=== PATIENT | male | born 1980 | race Caucasian/White ===

== ENCOUNTER → 2020-05-10 18:19 | Outpatient (CLI) | payer BC, SELFPAY ==
[2020-05-10 18:26] LABS: Adenovirus F 40/41, stool Not Detected (NotDetected); Astrovirus Not Detected (NotDetected); Campylobacter Not Detected (NotDetected); Clostridium Difficile A/B, PCR Not Detected (NotDetected); Cryptosporidium Not Detected (NotDetected); Cyclospora Cayetanesis Not Detected (NotDetected); Entamoeba histolytica Not Detected (NotDetected); Enteroaggregative E coli Not Detected (NotDetected); Enteropathogenic E coli Not Detected (NotDetected); Enterotoxigenic E coli Not Detected (NotDetected); Giardia lamblia Not Detected (NotDetected); Norovirus Not Detected (NotDetected); Plesimonas Shigalloides, PCR Not Detected (NotDetected); Rotavirus A Not Detected (NotDetected); Salmonella, PCR Not Detected (NotDetected); Sapovirus Not Detected (NotDetected); Shiga-like toxin E coli Not Detected (NotDetected); Shigella Enterovasive E coli Not Detected (NotDetected); Vibrio Cholerae Not Detected (NotDetected); Vibrio, PCR Not Detected (NotDetected); Yersinia Entercolitica, PCR Not Detected (NotDetected)
[2020-05-12 14:09] LABS: Covid-19 Nasal PCR Sendout Lex Not Detected
== END ==
PROVIDERS: Visit Provider Nurse Practitioner
DX: R19.7 Diarrhea, unspecified (principal); Z03.818 Encounter for observation for suspected exposure to other biological agents ruled out
CPT/HCPCS: 87507; U0004

== ENCOUNTER 2020-05-12 15:17 | Emergency (ER) | payer BC, SELFPAY ==
--- NOTE | 2020-05-12 16:39 | HMH.EDUTC ---
[facility] [place] Disposition Clinical Impression: Diarrhea Qualifiers: Diarrhea type: infectious Qualified Code(s): A09 - Infectious gastroenteritis and colitis, unspecified Disposition: Home, Self-Care Condition on Discharge: Good Instructions: DI for Diarrhea and Traveler's Diarrhea -- Adult Additional Instructions: BRAT diet Prescriptions: Ciprofloxacin HCl [Ciprofloxacin 500mg Tab] 500 mg PO BID 5 Days #10 tab Transmission Status: Pending to [facility] Ondansetron [Ondansetron Odt 8mg Tab] 8 mg PO TID PRN 10 Days #30 tab PRN Reason: Nausea Transmission Status: Pending to [facility] Referrals: PCP,No [Primary Care Provider] - Time of Disposition: 16:47 Medical Decision Making - Donovan Inquiry Pt receiving controlled substance: No - Lab Data Lab results reviewed: Yes: I reviewed the patient's lab results. [facility] [place] HPI - General Stated complaint: Obtain test results Time Seen by Provider: 05/12/20 16:39 - History of Present Illness Provider Complaint: Patient has had nausea, vomiting, diarrhea X 10 days. No fever. Every time he eats, he has to use the bathroom. Pepto and Imodium have not helped. Stomach cramps and back hurt. Had COVID19 testing and diarrhea panel done yesterday. Onset (ago): day(s) (10) Location: abdomen Relieving factors: none Exacerbating factors: none Treatments prior to arrival: none - Related Data Previous Rx's Medication Instructions Recorded Ciprofloxacin HCl [Ciprofloxacin 500 mg PO BID 5 Days #10 tab 05/12/20 500mg Tab] Ondansetron [Ondansetron Odt 8mg 8 mg PO TID PRN 10 Days #30 tab 05/12/20 Tab] Allergies Allergy/AdvReac Type Severity Reaction Status Date / Time No Known Allergies Allergy Unverified 09/30/17 14:39 [facility] History - Hepatitis A Screen Attestation statement:: This patient has been screened for Hepatitis A risk factors. I have reviewed the patient's past medical history: Yes ROS Obtained: Yes All systems reviewed & no additional complaints - Gastrointestinal Gastrointestingal: Reports: loose stools, vomiting Physical Exam - General General appearance: alert, in no apparent distress - Head Head exam: atraumatic, normocephalic, normal inspection - Eye Eye exam: Present: normal appearance, PERRL, EOMI - ENT ENT exam: Present: normal exam, normal oropharynx, mucous membranes moist, TM's normal bilaterally, normal external ear exam - Neck Neck exam: Present: normal inspection, full ROM, trachea midline. Absent: meningismus, lymphadenopathy - Chest Chest inspection: Present: normal inspection, symmetric chest wall rise. Absent: tenderness - Respiratory Respiratory exam: Present: normal lung sounds bilaterally. Absent: respiratory distress - Cardiovascular Cardiovascular exam: Present: regular rate, normal rhythm. Absent: JVD - Abdominal Exam Abdominal exam: Present: soft, tenderness, hyperactive bowel sounds. Absent: distention, guarding - Extremities Exam Extremities exam: Present: normal inspection, full ROM, normal capillary refill. Absent: calf tenderness - Back Exam Back exam: Present: normal inspection. Absent: tenderness - Neurological Exam Neurological exam: Present: alert, oriented X3 - Psychiatric Psychiatric exam: Present: normal affect, normal mood - Skin Skin exam: Present: warm, dry, intact, normal color - Lymphatic Lymphatic Findings: no adenopathy
[2020-05-12 16:43] VITALS: BP 126/80; PULSE 78; RESP 20; TEMP 36.3; O2SAT 98; BMI 29.0
[2020-05-12 17:03] VITALS: BP 126/80; PULSE 78; RESP 20; TEMP 36.3; O2SAT 98
== END 2020-05-12 17:06 | disposition home or self-care (01) ==
PROVIDERS: Emergency Provider Physician Assistant
DX: A09 Infectious gastroenteritis and colitis, unspecified (principal)
CPT/HCPCS: 99201

== ENCOUNTER 2020-05-17 22:49 | Emergency (ER) | payer BC, SELFPAY ==
[2020-05-17 22:57] VITALS: BP 151/99; PULSE 103; RESP 18; TEMP 36.6; O2SAT 97; BMI 29.0
[2020-05-17 23:35] LABS: Lipase 125 U/L (23-300)
[2020-05-17 23:36] LABS: Alanine Aminotransferase 77 U/L (12-78); Albumin Level 5.1 g/dl (3.5-5.0); Albumin/Globulin Ratio 1.3 (1.1-1.8); Alkaline Phosphatase 127 U/L (38-126); Amylase 117 U/L (30-110); Anion Gap 19.2 mEq/L (5-15); Aspartate Amino Transferase 58 U/L (17-59); Basophils # 0.2 K/mm3 (0-0.2); Basophils % 0.7 % (0.1-2.0); Bilirubin,Total 0.5 mg/dl (0.2-1.3); Blood Urea Nitrogen 13 mg/dl (9-20); Calcium 10.2 mg/dl (8.4-10.2); Carbon Dioxide 28 mmol/L (22.0-30.0); Chloride 101 mmol/L (98-107); Creatinine Clearance Estimated 156 mL/min (50-200); Eosinophils # 1.3 K/mm3 (0.0-0.4); Eosinophils % 6.6 % (0.1-12.0); Estimated Glomerular Filt Rate 94 ml/min (>60); GFR (African American) 114 ML/MIN (>60); Globulin 3.8 g/dL (1.3-3.2); Glucose 117 mg/dl (74-100); Hematocrit 54.1 % (42.0-52.0); Lymphocytes # 4.2 K/mm3 (0.7-4.5); Lymphocytes % 20.8 % (10-50); Mean Corpuscular HGB Conc 34.2 g/dL (31.8-35.4); Mean Corpuscular Hemoglobin 31.7 pg (27.0-31.2); Mean Corpuscular Volume 92.7 fl (80-94); Mean Platelet Volume 8.7 fl (7.4-10.4); Monocytes # 0.9 K/mm3 (0.1-1.0); Monocytes % 4.4 % (1.7-9.3); Neutrophils # 13.7 K/mm3 (1.8-7.8); Neutrophils % 67.5 % (37.0-80.0); Platelet Count 315 K/mm3 (142-424); Potassium 4.2 mmoL/L (3.5-5.1); Red Blood Count 5.84 M/mm3 (4.60-6.20); Red Cell Distribution Width 13.4 % (11.5-17.5); Sodium 144 mmol/L (136-145); Total Protein,Serum 8.9 g/dl (6.3-8.2); White Blood Count 20.2 K/mm3 (4.8-10.8)
[2020-05-17 23:43] LABS: Hemoglobin 18.8 g/dL (14.1-18.0); MANUAL DIFFERENTIAL MANUAL DIFFERENTIAL (MANUAL DIFF)
[2020-05-17 23:53] VITALS: BP 138/82; PULSE 91; RESP 18; O2SAT 97
[2020-05-18 00:40] LABS: Eosinophils % 1 % (0-3); Lymphocytes % 27 % (10-50); Monocytes % 2 % (2-9); Neutrophils % 69 % (42-76); Total Cells Counted 100
[2020-05-18 00:41] LABS: Platelet Estimate Normal; RBC Morphology Normal
--- NOTE | 2020-05-18 01:04 | HMH.EDNVD ---
ED Disposition Clinical Impression: Gastroenteritis Disposition: Home, Self-Care Condition on Discharge: Good Instructions: DI for Nausea -- Adult, DI for Nausea -- Child, DI for Diarrhea and Traveler's Diarrhea -- Adult, DI for Diarrhea and Traveler's Diarrhea -- Child Prescriptions: Promethazine HCl 50 mg PO TID 6 Days #20 tab Transmission Status: [facility] Referrals: PCP,No [Primary Care Provider] - - Critical Care Critical Care Time: No Attestation: On 05/17/20, the high probability of a clinically significant, sudden or life threatening deterioration of the following system(s) required my full and direct attention, intervention and personal management. The time I documented below is in addition to time spent performing reported procedures but includes the following listed in this critical care notation. Medical Decision Making - Medical Records Medical records reviewed: Yes: I reviewed the patient's medical records. - Donovan Inquiry Pt receiving controlled substance: No Vital Signs: 05/17/20 22:57 05/17/20 23:53 Temperature 97.8 F Temperature Source Oral Pulse Rate [Right] 103 H 91 H Respiratory Rate 18 18 Blood Pressure [Right Arm] 151/99 H 138/82 Blood Pressure Mean [Right Arm] 116 100 Blood Pressure Source [Right Arm] Automatic Cuff Blood Pressure Position [Right Arm] Sitting 02 Sat by Pulse Oximetry 97 97 Oxygen Delivery Method Room Air Room Air - Lab Data Lab results reviewed: Yes: I reviewed the patient's lab results. Lab Results 05/17/20 23:15: WBC 20.2 H*, RBC 5.84, Hgb 18.8 H*, Hct 54.1 H, MCV 92.7, MCH 31.7 H, MCHC 34.2, RDW 13.4, Plt Count 315, MPV 8.7, Neut % (Auto) 67.5, Lymph % (Auto) 20.8, [place] % (Auto) 4.4, Eos % (Auto) 6.6, Baso % (Auto) 0.7, Neut # (Auto) 13.7 H, Lymph # (Auto) 4.2, [place] # (Auto) 0.9, Eos # (Auto) 1.3 H, Baso # (Auto) 0.2, Total Counted 100, Neutrophils % (Manual) 69, Lymphocytes % (Manual) 27, Monocytes % (Manual) 2, Eosinophils % (Manual) 1, Basophils % (Manual) 1.0, Platelet Estimate Normal, RBC Morphology Normal 05/17/20 23:15: Sodium 144, Potassium 4.2, Chloride 101, Carbon Dioxide 28, Anion Gap 19.2 H, BUN 13, Creatinine 0.90, Estimated Creat Clear 156, Estimated GFR 94, Est GFR ( Amer) 114, Glucose 117 H, Calcium 10.2, Total Bilirubin 0.5, AST 58, ALT 77, Alkaline Phosphatase 127 H, Total Protein 8.9 H, Albumin 5.1 H, Globulin 3.8 H, Albumin/Globulin Ratio 1.3, Amylase 117 H 05/17/20 23:15: Lipase 125 05/17/20 23:50: Influenza Type A Ag Negative, Influenza Type B Ag Negative Result diagrams: 05/17/20 23:15 05/17/20 23:15 Orders (Tests/Meds): ED MEDICATIONS Generic Name Dose Route Start Last Admin Trade Name Freq PRN Reason Stop Dose Admin Sodium Chloride 1,000 mls @ 999 mls/hr 05/17/20 23:15 05/17/20 23:21 Sod Chlor 0.9% 1000ml Bag IV 05/18/20 00:15 999 mls/hr .Q1H1M OPAL Administration Discontinued Medications Generic Name Dose Route Start Last Admin Trade Name Freq PRN Reason Stop Dose Admin Ondansetron HCl 4 mg 05/17/20 23:05 05/17/20 23:21 Zofran 4mg/2ml Vial IV 05/17/20 23:06 4 mg ONCE ONE Administration Nausea/Vomiting/Diarrhea HPI - General Chief complaint: Nausea/Vomiting/Diarrhea Stated complaint: Vomiting, diarrhea, abdominal pain Time Seen by Provider: 05/18/20 01:00 Mode of Arrival: Ambulatory Source of Information: Patient Limitations: No Limitations Description of Symptoms (Recalled from ER Triage Doc. by RN): Pt states he has had N/V/D for 10 days, already seen in [facility] on friday and f/u with Jing, tested Neg Covid 19 and stool sample with neg results. Currently taking ABX - History of Present Illness HPI Narrative: 39-year-old male presents the emergency department with an acute onset of vomiting. Patient states he is had diarrhea now for 10days he did get put on antibiotic and urgent care for diarrhea but he states that he still has diarrhea about 20 m
[2020-05-18 02:03] VITALS: BP 140/72; PULSE 88; RESP 14; TEMP 36.6; O2SAT 98
== END 2020-05-18 02:05 | disposition home or self-care (01) ==
PROVIDERS: Emergency Provider Family Medicine
DX: K52.9 Noninfective gastroenteritis and colitis, unspecified (principal)
CPT/HCPCS: 80053; 82150; 83690; 85007; 85025; 87275; 87276; 96365; 96367; 96374; 96375; 99283; J2405

== ENCOUNTER → 2020-05-19 15:48 | Outpatient (CLI) | payer BC, SELFPAY ==
--- NOTE | 2020-05-19 15:57 | CT_ITS ---
PROCEDURE: CT ABDOMEN PELVIS WO/W CON CLINICAL INDICATION: USPECIFIED ABD PAIN Diarrhea with a intermittent fever COMPARISON: No exams were available for comparison TECHNIQUE: IV Contrast: 75ML OPTIRAY 350 Oral Contrast None Axial images obtained with sagittal and coronal reformats. All CT scans at the facility use one or more dose reduction, viz: automated exposure control, ma/kV adjustment per patient size (including targeted exams where dose is matched to indication, i.e. head), or iterative reconstruction technique. FINDINGS: LOWER THORAX: There is a 3 mm noncalcified nodule in the right middle lobe nonspecific. There are mild atelectatic changes in the right lung base. ABDOMEN & PELVIS: There is mild fatty infiltration of the liver. There is mild splenomegaly at 15 cm. No focal liver lesion is evident. The gallbladder has an unremarkable appearance. No renal or ureteral calculi. No hydronephrosis. The pancreas and adrenal glands are unremarkable. There are few scattered mildly prominent mesenteric lymph nodes which measure up to 1.7 x 1.2 cm. Small nodes are present in the right lower quadrant. There is given history of appendectomy. No evidence of diverticulitis. There are some scattered colonic diverticula. No intestinal obstruction or free air. There is mild prominence of the terminal ileum which is nonspecific. No mucosal thickening of the terminal ileum. No abscess. The degenerative disc disease with bulging disc is present at L5-S1. Mild degenerative changes of the hips. Incidental note is made of a retro aortic left renal vein IMPRESSION: 1. No definite acute abdominal or pelvic findings. 2. Mildly prominent mesenteric and right lower quadrant lymph nodes nonspecific but could be seen with mesenteric adenitis. 3. Patulous appearance of the terminal ileum. This is of questionable clinical significance. The 4. Splenomegaly with mild fatty liver Dictated b Tez Brandon MD 05/19/2020 17:04 Tez Brandon MD in [facility] 05/19/2020 17:04
== END ==
PROVIDERS: PCP Nurse Practitioner; Visit Provider Nurse Practitioner
DX: R10.9 Unspecified abdominal pain (principal)
CPT/HCPCS: 74178; Q9967

== ENCOUNTER → 2020-06-20 19:09 | Outpatient (CLI) | payer BC, SELFPAY ==
[2020-06-22 13:33] LABS: Covid-19 Nasal PCR Sendout Lex NOT DETECTED
== END ==
PROVIDERS: Visit Provider Nurse Practitioner Family
DX: Z03.818 Encounter for observation for suspected exposure to other biological agents ruled out (principal)
CPT/HCPCS: U0004

== ENCOUNTER 2020-07-21 07:38 | Day surgery (SDC) | payer BC, SELFPAY ==
[2020-07-21] VITALS (7 sets, daily range): BP systolic 96–137; BP diastolic 48–85; PULSE 44–67; RESP 18; TEMP 36.1–36.6; O2SAT 95–100; BMI 29.7
[2020-07-21 08:33] LABS: Coronavirus 19 IgG Antibody Negative (Negative); Coronavirus 19 IgM Antibody Negative (Negative)
--- NOTE | 2020-07-21 10:10 | HMH.ANESCL ---
[facility] Anesthesia Checklist - Patient Identification Patient Identification: Arm Band - Structural Data Admitted From: Home Planned Operative Procedure/s: egd/colonoscopy Consent for Planned Operative Procedure(s) Verified: Yes Verified Documents: Surgical Consent, History and Physical - NPO Status Verified Time NPO: 00:00 - Additional verifications Anesthesia Reactions: No - Airway Assessment C-Spine Mobility Assessed: Yes (mp2) TMJ Mobility Assessed: Yes Dentition: Good Dentition - Neurological Assessment Level of Consciousness: Awake, Alert - Anesthesia Plan Anesthesia Risk discussed: Yes Anesthesia Plan: Verified ASA Class: I Anesthesia Type: MAC [facility] History I have reviewed the patient's past medical history: Yes Medical History: 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 No: Pacemaker Amputation: No Fractures: Yes (r wrist) - *Social History Last grade of school completed: Some college Alcohol Intake: never Substance Use Type: denies use *Occupational Status:: employed Housing: house Household Members: spouse *Travel in the last 8 weeks: None Family Hx:: No significant family history
--- NOTE | 2020-07-21 10:11 | HMH.PROC ---
[facility] Procedure Note Procedure Note:: Upper Endoscopy Procedure Report: Esophagogastroduodenoscopy with cold biopsies Endoscopost: Ruddy Preston II, MD Referring Physician: ROC Chang Date of Procedure: July 21, 2020 Equipment: Olympus GIF 180 standard upper endoscope Sedation: MAC sedation Indications: Mr. Paige is a 39-year-old gentleman with episodic nausea, vomiting and diarrhea. He does get some mild epigastric abdominal pain and discomfort with indigestion. He has lost 10 to 15 pounds. This has been going on for 6 to 8 weeks. He did have a CT scan of the abdomen showing some gastric or bowel irregularity but the report is not presently available. He reports no melena. He reports no heartburn, reflux, bloating, belching, early satiety or dysphagia. Procedure: Prior to the procedure, a history and physical exam was performed, and patient's medications and allergies were reviewed. The risks, benefits and alternatives of the sedation and procedure were discussed with the patient. All questions were answered and informed consent was obtained. The patient was brought to the procedure room. Patient identification and proposed procedure were verified by the physician and the nurse. The patient was placed in a left lateral decubitus position and the scope was passed under direct vision. Throughout the procedure, the patient's blood pressure, pulse, and oxygen saturations were monitored continuously. The upper GI endoscopy was accomplished without difficulty. The patient tolerated the procedure well. Findings: The scope was passed directly into the upper esophagus and advanced to the third portion of the duodenum. The post bulbar duodenum and duodenal bulb were normal with normal mucosa and conniventes. The scope was withdrawn through a normal duodenal bulb and pylorus into the stomach. There was some minimal chronic gastritis of the stomach with bile reflux and mild reactive gastropathy. Biopsies were taken from the antrum to rule out H. pylori. Upon retroflexion there was no hiatal hernia. The scope was then withdrawn into the esophagus. There was no evidence of reflux esophagitis or Grubbs's. Biopsies were taken from the GE junction to rule out GERD/intestinal metaplasia. The remainder of the esophageal mucosa was normal. Impression: 1. Minimal chronic gastritis and reactive gastropathy Plan: I will follow-up the biopsies. We will discuss additional treatment options. I will obtain his CAT scan report. I will proceed with colonoscopy.
--- NOTE | 2020-07-21 10:30 | P.PCN_ITS ---
[facility] Procedure Note Procedure Note:: Colonoscopy Procedure Report: Colonoscopy with cold snare polypectomy Endoscopist: Ruddy Preston II, MD Referring physician: ROC Chang Date of Procedure: July 21, 2020 Equipment: Olympus 180 variable stiffness pediatric colonoscope Sedation: MAC sedation Indication: Mr. Paige is a 39-year-old gentleman here for diagnostic colonoscopy. He has had episodic nausea, vomiting and diarrhea for 2 months. He did have a CT scan of the abdomen and pelvis on May 19, 2020 and did have a patulous appearance of the ileum and mildly prominent mesenteric and right lower quadrant lymph nodes possibly representing mesenteric lymphadenitis. The patient has lost 10 to 15 pounds. The patient reports some mild upper abdominal discomfort. He has had no rectal bleeding, hematochezia or fever. He reports no family history of colitis, Crohn's disease or colon cancer. Procedure: Prior to the procedure, a history and physical exam was performed, and patient's medications and allergies were reviewed. The risks, benefits and alternatives of the sedation and procedure were discussed with the patient. All questions were answered and informed consent was obtained. The patient was brought to the procedure room. Patient identification and proposed procedure were verified by the physician and the nurse. The patient was placed in a left lateral decubitus position and the scope was passed under direct vision. Throughout the procedure, the patient's blood pressure, pulse, and oxygen saturations were monitored continuously. The colonoscopy was accomplished without difficulty. The patient tolerated the procedure well. Findings: On digital rectal examination there was normal rectal tone. There were no external hemorrhoids. The colonoscope was introduced through the anal canal to the rectum and advanced to the cecum. The ileocecal valve and appendiceal orifice were identified. The scope was advanced a short distance into the ileum which appeared grossly normal. There was no evidence of Crohn's disease of the ileum. The scope was then withdrawn into the colon. There were 4 colon polyps (transverse x1 (4 mm), sigmoid x2 (4 and 5 mm) and rectum x1 (4 mm)) which were all removed via cold snare polypectomy. The remaining cecum, ascending, transverse, descending, sigmoid and rectum were grossly normal. There were no mucosal abnormalities identified. Upon retroflexion within the rectum there were grade 1 internal hemorrhoids.The preparation was excellent throughout with B oston Preparation Score of 9. The cecal time was 12 minutes. Impression: 1. Diminutive colonic polyps x4 2. Grade 1 internal hemorrhoids Plan: There was no evidence of colitis or Crohn's disease. 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 If his symptoms persist I would also consider gallbladder ultrasound. We will discuss dietary measures and treatment options.
== END 2020-07-21 11:20 | disposition home or self-care (01) ==
LOC: OUTP 07:39
PROVIDERS: PCP Nurse Practitioner Family; Visit Provider Internal Medicine Gastroenterology
PROC: 0DJ08ZZ Inspection of Upper Intestinal Tract, Via Natural or Artificial Opening Endoscopic (ICD-10-PCS; CPT 43235; principal; 2020-07-21 09:30)
DX: K63.5 Polyp of colon (principal); K64.0 First degree hemorrhoids; K29.70 Gastritis, unspecified, without bleeding; K31.9 Disease of stomach and duodenum, unspecified; R63.4 Abnormal weight loss; Z68.29 Body mass index [BMI] 29.0-29.9, adult; Z86.14 Personal history of Methicillin resistant Staphylococcus aureus infection; Z90.89 Acquired absence of other organs; Z90.49 Acquired absence of other specified parts of digestive tract
CPT/HCPCS: 45385; 43239; 36415; 86328

== ENCOUNTER → 2020-08-01 08:30 | Outpatient (CLI) | payer BC, SELFPAY ==
--- NOTE | 2020-08-01 08:35 | US_ITS ---
PROCEDURE: US ABDOMEN LIMITED CLINICAL INDICATION: ABD PAIN COMPARISON: CT CT ABDOMEN PELVIS WO/W CON from 05/19/2020 FINDINGS: PANCREAS: Unremarkable. No obvious mass or abnormal fluid collection. No ductal dilatation LIVER: Diffuse increased echogenicity of the liver with poor through transmission of sound consistent with hepatic steatosis. No focal liver lesion demonstrated. There is appropriate direction of blood flow within non dilated portal vein. RIGHT KIDNEY: Unremarkable. Normal size and echogenicity. No hydronephrosis GALLBLADDER: No gallstones, gallbladder wall thickening, pericholecystic fluid, or biliary dilatation. IMPRESSION: Fatty liver otherwise negative right upper quadrant ultrasound Dictated by: Tez Brandon MD 08/01/2020 09:37 Tez Brandon MD in [facility] 08/01/2020 09:37
== END ==
PROVIDERS: PCP Nurse Practitioner Family; Visit Provider Nurse Practitioner Family
DX: R10.9 Unspecified abdominal pain (principal)
CPT/HCPCS: 76705

== ENCOUNTER → 2020-08-07 10:14 | Outpatient (CLI) | payer BC, SELFPAY ==
--- NOTE | 2020-08-07 | NM_ITS ---
PROCEDURE: NM HEPATOBILIARY W PHARM CLINICAL INDICATION: Abdominal pain with nausea, vomiting COMPARISON: US US ABDOMEN LIMITED from 08/01/2020 TECHNIQUE: 8.37 mCi technetium Choletec DOSE: 2 mcg of CCK FINDINGS: Homogeneous activity is present within the hepatic parenchyma. Activity is present in the gallbladder by 5 minutes. Activity is present in the small bowel by at 50 minutes.. The gallbladder ejection fraction is calculated to be 94 percent.. CCK-The patient reported mild nausea and pain during CCK infusion. IMPRESSION: 1. No evidence of common or cystic duct obstruction. There is some delayed visualization of the small bowel with some mild nausea and pain reported with CCK, nonspecific. 2. Normal gallbladder ejection fraction Dictated by: Tez Brandon MD 08/07/2020 12:56 Tez Brandon MD in [facility] 08/07/2020 12:56
== END ==
PROVIDERS: PCP Nurse Practitioner Family; Visit Provider Nurse Practitioner Family
DX: R10.9 Unspecified abdominal pain (principal)
CPT/HCPCS: 78227; A9537; J2805

== ENCOUNTER → 2021-02-21 07:55 | Outpatient (CLI) | payer BC, SELFPAY ==
--- NOTE | 2021-02-21 08:04 | XR_ITS ---
PROCEDURE: XR KNEE RT 3V CLINICAL INDICATION: RT KNEE PAIN COMPARISON: No exams were available for comparison FINDINGS: No fracture or dislocation. No lytic or blastic change. There is normal mineralization. The joint spaces are well-preserved. No significant degenerative/arthritic changes. No suprapatellar joint effusion. No significant soft tissue abnormality. IMPRESSION: No acute findings. Dictated by: Patricia Shafer 02/21/2021 08:14 Patricia Shafer in [facility] 02/21/2021 08:14
== END ==
PROVIDERS: PCP Nurse Practitioner Family; Visit Provider Nurse Practitioner Family
DX: M25.561 Pain in right knee (principal)
CPT/HCPCS: 73562

== ENCOUNTER → 2021-02-26 07:59 | Outpatient (CLI) | payer BC, SELFPAY ==
--- NOTE | 2021-02-26 08:03 | CA_ITS ---
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: SW/CN Indications HTN, HLD Vein Imaging CFV (R): compressive, spontaneous, phasic, augmentation FEM (R): compressive, spontaneous, phasic, augmentation POP (R): compressive, spontaneous, phasic, augmentation PTV (R): compressive, spontaneous, phasic, augmentation GSV (R): compressive, spontaneous, phasic, augmentation SSV (R): compressive, spontaneous, phasic, augmentation Peroneals (R):compressive, spontaneous, phasic, augmentation GAS (R): compressive, spontaneous, phasic, augmentation Findings Color flow duplex demonstrates no evidence of DVT of the following right lower extremity Vein:Common Femoral Vein, Femoral Vein, Popliteal Vein, Posterior Tibial Veins, Peroneal Veins. Negative for DVT. Conclusion Color flow duplex demonstrates no evidence of DVT of the following right lower extremity Vein:Common Femoral Vein, Femoral Vein, Popliteal Vein, Posterior Tibial Veins, Peroneal Veins. Negative for DVT. Mildly prominent right inguinal lymph node Electronically signed by : Tez Brandon MD 02/26/2021 17:41:43
== END ==
PROVIDERS: PCP Nurse Practitioner Family; Visit Provider Nurse Practitioner Family
DX: M25.561 Pain in right knee (principal)
CPT/HCPCS: 93971

== ENCOUNTER 2021-04-05 08:00 | Outpatient (RCR) | payer BC, SELFPAY | END 2021-04-26 16:30 | disposition home or self-care (01) | LOC: PT.CARL 08:00 | PROVIDERS: PCP Nurse Practitioner Family; Visit Provider Nurse Practitioner Family | DX: M25.561 Pain in right knee (principal) | CPT/HCPCS: 97010; 97014; 97033; 97110; 97140; 97163; G0283 ==

== ENCOUNTER → 2021-06-01 12:07 | Outpatient (CLI) | payer BC, SELFPAY ==
--- NOTE | 2021-06-01 12:23 | XR_ITS ---
PROCEDURE: XR CHEST 2V CLINICAL HISTORY: F/U TO POSITIVE COVID TEST AROUND 05/15/21 COMPARISON: CT CT ABDOMEN PELVIS WO/W CON from 05/19/2020 FINDINGS: The cardiomediastinal silhouette and pulmonary vascularity are within normal limits. No lobar consolidation or collapse. Faint nodular opacity is present in right lower lung at the 4th interspace anteriorly and may be due to summation artifact from overlying vessel. Stability may be confirmed with follow-up. Degenerative changes thoracic spine IMPRESSION: No acute finding. Please see above for detail Dictated by: Tez Bradnon MD 06/01/2021 12:48 Tez Brandon MD in [facility] 06/01/2021 12:48
[2021-06-01 12:40] LABS: Basophils # 0.1 K/mm3 (0-0.2); Basophils % 0.8 % (0.1-2.0); Eosinophils # 0.1 K/mm3 (0.0-0.4); Eosinophils % 0.5 % (0.1-12.0); Hematocrit 48.2 % (42.0-52.0); Hemoglobin 16.2 g/dL (14.1-18.0); Lymphocytes # 4.4 K/mm3 (0.7-4.5); Lymphocytes % 26.6 % (10-50); Mean Corpuscular HGB Conc 33.6 g/dL (31.8-35.4); Mean Corpuscular Hemoglobin 30.5 pg (27.0-31.2); Mean Corpuscular Volume 90.8 fl (80-94); Mean Platelet Volume 8.3 fl (7.4-10.4); Monocytes # 0.7 K/mm3 (0.1-1.0); Monocytes % 3.9 % (1.7-9.3); Neutrophils # 11.3 K/mm3 (1.8-7.8); Neutrophils % 68.3 % (37.0-80.0); Platelet Count 391 K/mm3 (142-424); Red Blood Count 5.31 M/mm3 (4.60-6.20); White Blood Count 16.5 K/mm3 (4.8-10.8)
[2021-06-01 12:42] LABS: MANUAL DIFFERENTIAL MANUAL DIFFERENTIAL (MANUAL DIFF)
[2021-06-01 12:52] LABS: D-Dimer 0.25 ug/mL (0.0-0.5)
[2021-06-01 13:29] LABS: Eosinophils % 1 % (0-3); Lymphocytes % 28 % (10-50); Monocytes % 5 % (2-9); Neutrophils % 66 % (42-76); Platelet Estimate Normal; RBC Morphology Normal; Total Cells Counted 100
[2021-06-01 14:01] LABS: Chloride 102 mmol/L (98-107); Sodium 143 mmol/L (136-145)
[2021-06-01 14:02] LABS: Potassium 4.4 mmoL/L (3.5-5.1)
[2021-06-01 14:04] LABS: Alanine Aminotransferase 49 U/L (12-78); Alkaline Phosphatase 82 U/L (38-126); Aspartate Amino Transferase 26 U/L (17-59); Bilirubin,Total 0.5 mg/dl (0.2-1.3); Blood Urea Nitrogen 12 mg/dl (9-20); Estimated Glomerular Filt Rate 107 ml/min (>60); GFR (African American) 130 ML/MIN (>60)
[2021-06-01 14:05] LABS: Albumin Level 4.1 g/dl (3.5-5.0); Albumin/Globulin Ratio 1.6 (1.1-1.8); Anion Gap 12.4 mEq/L (5-15); Calcium 9.6 mg/dl (8.4-10.2); Carbon Dioxide 33 mmol/L (22.0-30.0); Globulin 2.6 g/dL (1.3-3.2); Glucose 95 mg/dl (74-100); Total Protein,Serum 6.7 g/dl (6.3-8.2)
== END ==
PROVIDERS: Visit Provider Nurse Practitioner Family
DX: U07.1 COVID-19 (principal)
CPT/HCPCS: 36415; 71046; 80053; 85007; 85025; 85378

== ENCOUNTER → 2021-06-08 07:40 | Outpatient (CLI) | payer BC, SELFPAY | PROVIDERS: PCP Nurse Practitioner Family; Visit Provider Nurse Practitioner Family | DX: R06.02 Shortness of breath (principal); Z86.16 Personal history of COVID-19 | CPT/HCPCS: 94010 ==

== ENCOUNTER → 2022-11-22 07:30 | Outpatient (CLI) | payer BC, SELFPAY ==
--- NOTE | 2022-11-22 07:35 | XR_ITS ---
FINAL REPORT CLINICAL HISTORY: PAIN IN COCCYX, no injury FINDINGS: Sacrum/coccyx Three views were obtained. There is no acute fracture or dislocation. The joint spaces appear normal. No soft tissue abnormality is identified. IMPRESSION: No acute process. Reviewed, Interpreted and Dictated by Madhuri Gastelum MD Transcribed by Debbi Hayward Authenticated and [facility]
== END ==
LOC: RAD 07:31
PROVIDERS: PCP Nurse Practitioner Family; Visit Provider Nurse Practitioner Family
DX: M53.3 Sacrococcygeal disorders, not elsewhere classified (principal)
CPT/HCPCS: 72220

== ENCOUNTER 2023-02-20 09:00 | Outpatient (RCR) | payer BC, SELFPAY | END 2023-02-20 11:00 | disposition home or self-care (01) | LOC: PT 09:00 | PROVIDERS: PCP Nurse Practitioner Family; Visit Provider Nurse Practitioner Family | DX: M51.26 Other intervertebral disc displacement, lumbar region (principal) | CPT/HCPCS: 97010; 97012; 97014; 97110; 97140; 97163; G0283 ==

== ENCOUNTER 2025-07-08 21:14 | Emergency (ER) | payer BC, SELFPAY ==
--- OUTSIDE RECORDS SUMMARY | 2025-07-08 22:19 | XMS_ITS | Clinical Summary ---
[facility] Address [address] [place] [address] Care Team Providers Care Rn House Supervisor Name Role Phone Maik Kari DUGLAS Primary Care Provider [phone] Social History Tobacco Use Types Packs/Day Years Used Date Smoking Tobacco: Never Assessed Abuse Screen Answer Date Recorded Unsafe at Home or Work/School Not on file Feels Threatened by Someone? Not on file 06/2023 Does Anyone Keep You from Co ntacting Others or Doint Things Outside the Home? Not on file 07/21/2023 Physical Sign of Abuse Present Not on file 1 Housing Stability Answer Date Recorded Current Living Arrangements Not on file 06/2023 Potentially Unsafe Housing Conditions Not on angela e 07/21/2023 Family and Community Support Answer Asa e Recorded Help with Day-to-Day Activities Not on file 07/21/2023 Lonely or Isolated Not on file 07/21/2023 Employment Answer Date Recorded Do you want help finding or keeping work or a [place] b? Not on file 07/21/2023 Disabilities Answer Date Recorded Concentrating, Remembering, or Making Decisions Difficulty Not on file 07/21/2023 Doing Errands Independently Difficulty Not on fi le 07/21/2023 Education Answer Date Recorded Help with school or training? Not on file Preferred Language Not on file 07/21/2023 Sex and Gender Information Value Date Recorded Sex Assigned at Not on file Legal Sex Male 12:50 PM EDT Gender Identity Not on file Sexual Orientation Not on file Plan of Treatment Health Maintenance Due Date Last Done Comments ANNUAL PHYSICAL 1980 HEPATITIS C SCREENING 1980 TDAP/TD VACCINES (2 - Tdap) 05/11/2006 05/11/1996 INFLUENZA VACCINE 05/13/2025 HEMOGLOBIN A1C Discontinued 02/26/2023, 02/26/2023 Pneumococcal Vaccine 0-49 Aged Out No longer eligible based on patient's age to complete this topic [place] [address] [place] [address] PPO Care Teams Rn House Supervisor Relationship Specialty Start Date End Date Kari Pleitez APRN [id number] [place] [address] [id number] PCP - General Nurse Practitioner 03/17/23
--- OUTSIDE RECORDS SUMMARY | 2025-07-08 22:20 | XMS_ITS | Continuity of Care Document ---
Author Organization [employer] [facility] Address [address] [place] [address] Assessment Encounter Date Assessment Date Assessment LastModified by Organization Details LastModified Time 07/05/2025 07/05/2025 Tunde Paige, chidi patient with prediabetes, presenting with recent episodes of hypoglycemia at work and fluctuating blood pressure. Hypoglycemia Assessment: Patient experienced a recent episode of hypoglycemia at work with blood glucose dropping to 47 mg/dL before eating. Symptoms include cold sweat, dizziness, nausea, and vomiting. Blood glucose later spiked to 172 mg/dL after a snack. Recent lab work showed slightly elevated insulin levels, consistent with prediabetes. The frequent hypoglycemic episodes, especially while working night shifts, suggest possible reactive hypoglycemia or early stages of insulin resistance. Plan: - Provide glucose tablets for immediate management of hypoglycemic episodes - Attempt to obtain insurance approval for [employer] continuous glucose monitor for 2 weeks - Refer to press clippings cutter and paster, Dr. Hylton, for evaluation of hypoglycemia episodes - Instruct patient to eat regular meals with protein - Off work until Friday, July 25 (2 weeks) to monitor glucose and see press clippings cutter and paster - Schedule appointment with press clippings cutter and paster Hypertension Assessment: Patient reports fluctuating blood pressure, with recent readings over 200 mmHg systolic at work, later decreasing to 120 mmHg systolic. Blood pressure was normal during the last office visit. The elevated readings may be related to anxiety about hypoglycemic episodes. Patient is currently on lisinopril-HCT for blood pressure management. Plan: - Continue lisinopril-HCT - Monitor blood pressure twice daily (morning and evening) and record readings - Reassess blood pressure management after glucose stabilization Prediabetes Assessment: Recent blood work confirmed prediabetes with elevated insulin levels. 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 Plan: - Implement continuous glucose monitoring for 2 weeks to gather data for endocrinology appointment - Educate on regular meal timing and protein intake to stabilize blood glucose - Follow up with press clippings cutter and paster for comprehensive diabetes management plan Not available 07/05/2025 13:53:48 Plan of Treatment Reminders Order Date Submit Date Provider Last Modified By Organization Details Last Modified Time Details Appointments ANNUAL EXAM 2025 08:00A M Lauren. Maik, DUGLAS Not available Not available Not available Lab glucose, fingersti ck, blood 2024 025 [facility], [address] [place] [address], [phone], 07/05/2025 13:39:44 Referral endocrino logy referral - first available appt 2024 025 [facility]Resub joslyn-Revert Ebony Morris MD, [address], [place], [address], 07/06/2025 15:15:29 Procedures None recorded. Surgeries None recorded. Imaging None recorded. Medication Orders glucose 4 gram chewable tablet 2024 [facility], [address] [place] [address], [id number], 07/05/2025 15:15:05 Patient TargetsNo targets recorded. Patient InstructionsNo instructions recorded. Reason for Referral Endocrinology Referral for H yperinsulinism first available appt Referring Physician: Kari Pleitez, Family Medicine, Encounter Date: 07/05/2025 Results Created Date Observation Date Name Description Value Unit Range Abnormal Flag Note LastModifiedBy Organization Detail LastModifiedTime 06/28/2006/28/2025 gluco se, fingrosendo rskerri k, blood Blood Glucose: mg/dl 134 Not Available [address], [address], 06/28/2025 10:32:30 07/05/20 25 07/05/2025 gluco se, finge rstic k, blood Blood Glucose: mg/dl 88 Not Available [address], [place], [address], 07/05/2025 13:14:12 Result Notes None recorded. Problems Name Problem SNOMED Code Status Onset Date Resolution Date Notes Provider Name and Address Organization Details Recorded Time Low back pain 546371501 Completed 201605/19/2020 Problem Code: M54.5; Problem Code Type: ICD-10; Not Available [facility] 22:48:45 Right side sciatica 90983178444 9101 Completed 201605/19/2020 Problem Code: M54.31; Problem Code Type: ICD-10; Not Available [facility] 22:48:47 Abdomina l pain 29523801 Completed 201902/13/2021 Problem Code: R10.9; Problem Code Type: ICD-10; Not Available [facility] 22:48:45 Nausea and vomiting 70876822 Completed 201907/06/2022 Problem Code: R11.2; Problem Code Type: ICD-10; CESAR reynolds, [employer] 2 07:55:25 Diarrhea 36030357 Completed 201907/06/2022 Problem Code: R19.7; Problem Code Type: ICD-10; CESAR reynolds, [employer] 2 07:55:26 Splenome gilberto 93349809 Active 2019 Problem Code: R16.1; Problem Code Type: ICD-10; Not Available [facility] 22:48:45 Diarrhea 67982704 Completed 201902/13/2021 Problem Code: R19.7; Problem Code Type: ICD-10; CESAR reynolds [employer] 2 07:55:26 Hyperten sive disorder 74557800 Active 2020 Problem Code: I10; Problem Code Type: ICD-10; Kari Pleitez, ACCIDENT INVESTIGATOR [address] [facility], [place], [address] , [employer] 5 13:19:35 Pain in right knee Completed 202007/06/2022 Problem Code: M25.561; Problem Code Type: ICD-10; CESAR reynolds, [employer] 07:55:26 General examinat ion of patient Completed 202007/06/2022 CESAR reynolds, [employer] 07:55:25 Body mass index 30+ - obesity 687397281 Active 2020 Problem Code: Z68.30; Problem Code Type: ICD-10; Not Available [facility] 22:48:47 Disorder of upper respirat ory system 629179573 Completed 202007/06/2021 Problem Code: J06.9; Problem Code Type: ICD-10; Not Available [facility] 22:48:45 COVID-19 009937342 Completed 202007/06/2022 Problem Code: U07.1; Problem Code Type: ICD-10; CESAR reynolds, [employer] 07:55:26 Bronchop neumonia 709875286 Completed 202007/06/2022 Problem Code: J18.0; Problem Code Type: ICD-10; CESAR reynolds, [employer] 07:55:26 Merom lesion of lung 236401737 Completed 202007/06/2022 Problem Code: R91.1; Problem Code Type: ICD-10; CESAR reynolds, [employer] 07:55:26 Mixed hyperlip idemia 946416619 Active 2020 Problem Code: E78.2; Problem Code Type: ICD-10; Not Available [facility] 2 22:48:44 Influenz a vaccine needed 27231558494 06 Completed 202007/06/2022 Problem Code: Z23; Problem Code Type: ICD-10; CESAR ABBIE gail, [employer] 2 07:55:25 Noninfec tious gastroen teritis 77093230 Completed 202107/06/2022 CESAR reynolds, [employer] 2 07:55:25 Prediabe ej 873118075 Active 2023 Kari Pleitez APRN [address] [place] [address], [address] [place] [address] , [employer] 5 13:15:49 Body mass index 25-29 - overweig ht 154551435 Active 2024 Kari Pleitez APRN [address] [place] [address], [address] [place] [address] , [employer] 5 08:10:40 Hypoglyc emia 584749762 Active 2024 Kari Pleitez APRN [address] [place] [address], [address] [place] [address] , [employer] 5 10:34:25 Hyperins ulinism 18775635 Active 2024 Kari Pleitez APRN [address] [place] [address], [address] [place] [address] , [employer] 5 13:19:21 Problem Notes None recorded. Procedures Surgical History Date Name Laterality Status Provider Name and Address Organization Details Recorded Time 11/20 Cerumen Removal completed LAURITA BYNUM [employer] 3 09:40:03 07/06 Cerumen Removal completed Kym Garibay PA-C [address] [place] [address], [address] , [employer] 2 09:08:27 07/21 esophagogastroduodenoscopy completed JOHAN LEIVA [employer] 2 07:58:09 [facility] [employer] [facility] 2 07:57:06 Tonsillectomy completed [facility] [employer] [facility] 2 07:57:19 Wrist arthroscopy/surgery completed [facility] [employer] [facility] 2 07:57:40 Back Surgery completed [facility] [employer] [facility] 2 07:57:50 Imaging Results None recorded. Procedure Notes None recorded. Medical Equipment None Reported. Allergies No known drug allergies Medications Name Sig Start Date Stop Date Status Note LastModified by Organization Details LastModified Time cyclobenzap rine 10 mg tablet Take 1 tablet(s) by mouth tid prn 09/09 completed Not Available Not Available Not Available promethazin e-DM 6.25 mg-15 mg/5 mL oral syrup take 5 millilite rs by oral route every 4 hours as needed, not to exceed 30 mL in 24 hours 07/06 completed Not Available Not Available Not Available azithromyci n 250 mg tablet TAKE 2 TABLETS (500 MG) BY ORAL ROUTE ONCE DAILY FOR 1 DAY THEN 1 TABLET (250 MG) BY ORAL ROUTE ONCE DAILY FOR 4 DAYS 04/05 completed Not Available Not Available Not Available ibuprofen 800 mg tablet one pill three times daily prn 07/11 completed Not Available Not Available Not Available valacyclovi r 1 gram tablet Take 1 tablet every 8 hours by oral route for 7 days. 12/17 completed Not Available Not Available Not Available meloxicam 15 mg tablet Take 1 tablet(s) by mouth daily 10/09 completed Not Available Not Available Not Available dextrometho rphan-guaif enesin 10 mg-100 mg/5 mL oral liquid take 10 millilite rs by oral route every 4 hours as needed for cough 07/06 completed Not Available Not Available Not Available prednisone 20 mg tablet TAKE TWO TABLETS BY MOUTH EVERY DAY FOR 5 DAYS 04/05 completed Not Available Not Available Not Available Accu-Chek Softclix Lancets Test blood Glucose TWICE DAILY active Not Available Not Available No t Available aspirin 81 mg tablet,nazanin yed release Take 1 tablet every day by oral route. active Not Available Not Available No t Available Zofran 4 mg tablet take 1 tablet (4 mg) by oral route every 6 hours prn n/v 02/13 completed Not Available Not Available Not Available ofloxacin 0.3 % ear drops INSTILL 5 DROPS INTO AFFECTED EAR(S) BY OTIC ROUTE ONCE DAILY 09/19 completed Not Available Not Available Not Available triamcinolo ne acetonide 0.1 % dental paste Apply TID to oral ulcers for one week 12/17 completed Not Available Not Available Not Available doxycycline monohydrate 100 mg capsule take 1 capsule (100 mg) by oral route 2 times per day for 10 days 06/01 completed Not Available Not Available Not Available neomycin-po lymyxin-dex ameth 3.5 mg/mL-10,00 0 unit/mL-0.1 % eye drops 03/05 completed Not Available Not Available Not Available dexamethaso ne 4 mg tablet take 1 tablet (4 mg) by oral route once daily for 5 days 06/01 completed Not Available Not Available Not Available lisinopril 10 mg tablet TAKE ONE TABLET BY MOUTH EVERY MORNING 04/20 completed Not Available Not Available Not Available glucose 4 gram chewable tablet Take 1 tablet as needed by oral route, for hypoglyce stan. 2024 active Not Available Not Available Not Avai lable hydrochloro thiazide 12.5 mg capsule TAKE 1 CAPSULE (12.5 MG) BY ORAL ROUTE ONCE DAILY 04/04 completed Not Available Not Available Not Available diclofenac sodium 75 mg tablet,nazanin yed release Take 1 tablet twice a day by oral route with meals. 03/05 completed Not Available Not Available Not Available hydrochloro thiazide 25 mg tablet TAKE ONE TABLET BY MOUTH EVERY DAY 04/20 completed Not Available Not Available Not Available diclofenac sodium 50 mg tablet,nazanin yed release Take 1 tablet twice a day by oral route as needed. 03/05 completed Not Available Not Available Not Available lisinopril 10 mg-hydrochl orothiazide 12.5 mg tablet TAKE 1 TABLET BY MOUTH EVERY DAY FOR BLOOD PRESSURE active Not Available Not Available No t Available levofloxaci n 500 mg tablet take 1 tablet (500 mg) by oral route every 24 hours for 10 days 06/01 completed Not Available Not Available Not Available methylpredn isolone 4 mg tablets in a dose pack take by oral route as directed per package instructi ons 11/18 completed Not Available Not Available Not Available albuterol sulfate HFA 90 mcg/actuati on aerosol inhaler inhale ONE TO TWO puffs by MOUTH every FOUR hours as needed active Not Available Not Available No t Available bromphenira mine-pseudo ephedrine-D M 2 mg-30 mg-10 mg/5 mL oral syrup Take 10 mL every 4 hours by oral route as needed. 11/18 completed Not Available Not Available Not Available amoxicillin 875 mg-potassiu m clavulanate 125 mg tablet TAKE ONE TABLET BY MOUTH EVERY TWELVE HOURS FOR 7 DAYS 02/22 completed Not Available Not Available Not Available cyclobenzap rine 5 mg tablet Take 1 tablet 3 times a day by oral route as needed. 02/22 completed Not Available Not Available Not Available rosuvastati n 20 mg tablet TAKE 1 TABLET BY MOUTH EVERY DAY active Not Available Not Available No t Available hydrochloro thiazide 12.5 mg tablet take 1 tablet (12.5 mg) by oral route once daily 09/19 completed Not Available Not Available Not Available Accu-Chek Guide test strips Test Blood Glucose TWICE DAILY active Not Available Not Available No t Available Accu-Chek Guide Me Glucose Meter USE as directed TWICE DAILY active Not Available Not Available No t Available Vitals Date Recorded Body height Body mass index (BMI) Body weight Body temperature Heart rate Oxygen saturation Oxygen saturation in Arterial blood by Pulse oximetry Systolic And Diastolic Provider Name and Address Organization Details Last Updated DateTime 5 185.42 cm 29.3 kg/m2 824886. 22 g 99 [degF] 90 /min 96 % 96 % 125/78 mm[Hg] LAURITA BYNUM [facility] [employer] 5 13:13:38 Social History Question Answer Notes LastModified by Organizat ion Details LastModified Time Tobacco Smoking Status Never Smoker CESAR ABBIE reynolds, [facility] [employer] 07/06/2022 07:56:42 Do You Have An Advance Directive? No Information n ot available 07/06/2022 Is Your Home Air Conditioned? Yes Information not available 03/05/2023 In The 14 Days Before Symptom Onset, Have You Had Close Contact With A Laboratory-confirm ed COVID-19 While That Case Was Ill? No Information n ot available 03/05/2023 In The 14 Days Before Symptom Onset, Have You Had Close Contact With A Person Who Is Under Investigation For COVID-19 While That Person Was Ill? No Information not available 03/05/2023 Have You Been To An Area Known To Be High Risk For COVID-19? No Information not available 03/05/2023 What Type Of Diet Are You Following? REGULAR Information n ot available 03/05/2023 What Is The Highest Grade Or Level Of School You Have Completed Or The Highest Degree You Have Received? [id number] [email or web address] Information not available 07/06/2022 Who Is Your Employer? [employer] [email or web address] Information not available 07/06/2022 Do You Have A Medical Power Of Boat Master? No [email or web address] Information not available 07/06/2022 What Was The Date Of Your Most Recent Tobacco Screening? 07/05/2025 Information not available 07/05/2025 What Is Your Relationship Status? [email or web address] Information not available 07/06/2022 Do You Use Your Seat Belt Or Car Seat Routinely? Yes Information not available 03/05/2023 Do You Have Smoke And Carbon Monoxide Detectors In Your Home? Yes Information not available 03/05/2023 Are You Passively Exposed To Smoke? No Information no t available 03/05/2023 Are There Any Smokers In Your House? No Information not available 03/05/2023 Do You Use Sunscreen Routinely? No Information not available 03/05/2023 Have You Recently Traveled Abroad? No Information not available 03/05/2023 Do You Have Any Dietary Restrictions? No Information not available 03/05/2023 Sex: Male Functional Status Question Answer Note LastModified by Organizat ion Details LastModified Time Do you use any illicit or recreational drugs? No [email or web address] Information not available 07/06/2022 Do you or have you ever used any other forms of tobacco or nicotine? No Information not available 09/10/2023 What is your level of alcohol consumption? None [email or web address] Information not available 07/06/2022 Are you currently employed? Yes [email or web address] Information not available 07/06/2022 Do you have access to reliable transportation? No Information not available 03/05/2023 Are you able to care for yourself independently? Yes Information not available 03/05/2023 Mental Status None recorded. Family History Relationship Description Onset Age of this Age Resolved Age Notes LastModified by Organization Details LastModified Time Father No current problems or disability [email or web address] Not available 07:55:43 Mother No current problems or disability [email or web address] Not available 07:55:43 Medical History Condition Response Hypertension Y High Cholesterol Y Immunizations Vaccine Type Date Status Note Provider Nam e and Address Organization Details Recorded Time COVID-19, mRNA, LNP-S, PF, 30 mcg/0.3 mL dose 1 completed LAURITA reynolds, [employer] 09/23/2022 10:12:04 COVID-19, mRNA, LNP-S, PF, 30 mcg/0.3 mL dose 1 completed LAURITA reynolds, [employer] 09/23/2022 10:12:04 Td (adult), 2 Lf tetanus toxoid, preservative free, adsorbed 6 completed JUAN reynolds, [employer] 09/19/2022 10:39:21 Past Encounters Encounter ID Performer Location Encounter Start Date Encounter Closed Date Diagnosis/Indication Diagnosis SNOMED-CT Code Diagnosis ICD10 Code Diagnosis IMO Codes Diagnosis Note [id number] Kari Pleitez ACCIDENT INVESTIGATOR [address] [address] 06/28/2025 10:14:48 06/28/2025 11:38:19 Hypoglycemia 257125971 E16.2 59603 RTW on night 06/30/2025 [id number] Kari Pleitez [address] [address] 07/01/2025 11:15:54 07/02/2025 10:57:06 [id number] Kari Pleitez [address] [address] 07/05/2025 12:57:11 07/05/2025 14:06:01 Hypoglycemia 064547622 E16.2 00620 Obtain and carry the prescribed glucose tablets Prediabetes 249651939 R7 3.03 617796 Again emphasized regular low carb diet and exercise. Hypertensive disorder 38 773479 I10 DASH diet, avoid ETOH, exercise. Monitor BP at home routinely and report excursions . Hyperinsulinism 78598845 E16.1 [id number] Off work for 2 weeks until seen by Endo, tentative RTW date will be 07/25/25. Begin 2 week CGM with [email or web address]. Health Concerns Section Related Observation LastModified by Organization Detai ls LastModified Time None Recorded Concern Status LastModified by Organization Details LastModified Time None Recorded Payers Encounter Date Sequence Insurance Name Policy Number Policy Arizmendi Covered Member ID Arizmendi Member ID Guarantor Name 07/05/2025 1 [place] [id number] Tunde Paige [id number] Tunde Paige Notes Date Note Type Note Provider Name and Address Organization Details Recorded Time 5 text/html ROS as noted in the HPI Chief ComplaintFollow-up for hypoglycemic episode at work, elevated blood pressure, prediabetes diagnosisHistory of Present IllnessTunde Paige, a patient with prediabetes and hypertension, presents for follow-up after experiencing a hypoglycemic episode at work last week and elevated blood pressure.Since the last visit, Tunde reports significant fluctuations in his blood glucose levels. On Friday morning, his blood sugar dropped to 47 mg/dL before eating, followed by a spike to 172 mg/dL at 10:30 AM after a snack. When his blood sugar drops, Tunde experiences cold sweats, dizziness, nausea, and vomiting. These hypoglycemic episodes have been impacting his ability to work, necessitating time off.Concurrent with the blood sugar fluctuations, Tunde has been experiencing episodes of elevated blood pressure. He reports that his blood pressure was over 200 mmHg at one point but later decreased to 120 mmHg systolic. Tunde notes a consistent pattern where his blood pressure rises when his blood sugar drops. He continues to take lisinopril-HCT for hypertension management.Tunde's symptoms have significantly affected his daily functioning, particularly his ability to work. He has not been working night shifts recently due to these health concerns. The patient has not obtained glucose tablets as previously recommended, indicating a gap in treatment adherence. He also mentions that his workplace blood pressure readings were confirmed with a manual cuff, suggesting ongoing concerns about the accuracy of his readings.Medical History- Prediabetes- Hypertension, controlled with medicationMedications and Supplements- Lisinopril-HCT- Taking for blood pressureSocial History- Occupation: Works night shifts- Employment Status: Currently off work for 2 weeks (until July 25)Review of SystemsGeneral: Positive for fatigue.Cardiovascular: Positive for cold sweats.Gastrointestinal: Positive for nausea, vomiting.Neurological: Positive for dizziness.Endocrine: Positive for hypoglycemia episodes. Kari Pleitez, DUGALS [address] [facility], [place], [address], [facility] [employer] 07/05/2025 13:54:30
--- OUTSIDE RECORDS SUMMARY | 2025-07-08 22:20 | XMS_ITS | Continuity of Care Document ---
Author Organization [place] - [employer] [facility] Address [address] [place] [id number] Assessment No assessment recorded. Plan of Treatment Reminders Order Date Submit Date Provider Last Modified By Organization Details Last Modified Time Details Appointments ANNUAL EXAM 2025 08:00A M Eladio Pleitez APRN Not available Not available Not available Lab None recorded . Referral None recorded . Procedures None recorded . Surgeries None recorded . Imaging None recorded . Medication Orders None recorded . Patient TargetsNo targets recorded. Patient InstructionsNo instructions recorded. Reason for Referral None Reported. Results Created Date Observation Date Name Description Value Unit Range Abnormal Flag Note LastModifiedBy Organization Detail LastModifiedTime 06/28/2006/28/2025 gluco se, finge rskerri k, blood Blood Glucose: mg/dl 134 Not Available [address], [address], 06/28/2025 10:32:30 Result Notes None recorded. Problems Name Problem SNOMED Code Status Onset Date Resolution Date Notes Provider Name and Address Organization Details Recorded Time Low back pain 024985907 Completed 201605/19/2020 Problem Code: M54.5; Problem Code Type: ICD-10; Not Available [facility] 22:48:45 Right side sciatica 77736169177 9101 Completed 201605/19/2020 Problem Code: M54.31; Problem Code Type: ICD-10; Not Available [facility] 2 22:48:47 Abdomina l pain 91851232 Completed 201902/13/2021 Problem Code: R10.9; Problem Code Type: ICD-10; Not Available [facility] 22:48:45 Nausea and vomiting 83139773 Completed 201907/06/2022 Problem Code: R11.2; Problem Code Type: ICD-10; CESAR reynolds, [employer] 07:55:25 Diarrhea 46080096 Completed 201907/06/2022 Problem Code: R19.7; Problem Code Type: ICD-10; CESARMILTON LEIVA gail, [employer] 07:55:26 Gerardo macias 31048787 Active 2019 Problem Code: R16.1; Problem Code Type: ICD-10; Not Available [facility] 22:48:45 Diarrhea 92034544 Completed 201902/13/2021 Problem Code: R19.7; Problem Code Type: ICD-10; CESAR reynolds, [employer] 07:55:26 Hyperten sive disorder 57683477 Active 2020 Problem Code: I10; Problem Code Type: ICD-10; Kari Pleitez, P[employer]EL[employer] [address] [place] [address], [address] , [employer] 5 13:19:35 Pain in right knee Completed 202007/06/2022 Problem Code: M25.561; Problem Code Type: ICD-10; CESAR reynolds, [employer] 2 07:55:26 General examinat ion of patient Completed 202007/06/2022 CESARMILTON reynolds, [employer] 07:55:25 Body mass index 30+ - obesity 962335888 Active 2020 Problem Code: Z68.30; Problem Code Type: ICD-10; Not Available [facility] 22:48:47 Disorder of upper respirat ory system 709365802 Completed 202007/06/2021 Problem Code: J06.9; Problem Code Type: ICD-10; Not Available [facility] 22:48:45 COVID-19 931890750 Completed 202007/06/2022 Problem Code: U07.1; Problem Code Type: ICD-10; CESAR reynolds, [employer] 07:55:26 Bronchop neumonia 941338444 Completed 202007/06/2022 Problem Code: J18.0; Problem Code Type: ICD-10; CESAR reynolds, [employer] 07:55:26 [place] lesion of lung 677405844 Completed 202007/06/2022 Problem Code: R91.1; Problem Code Type: ICD-10; CESAR reynolds, [employer] 2 07:55:26 Mixed hyperlip idemia 843200989 Active 2020 Problem Code: E78.2; Problem Code Type: ICD-10; Not Available [facility] 22:48:44 Influenz a vaccine needed 45125769085 06 Completed 202007/06/2022 Problem Code: Z23; Problem Code Type: ICD-10; CESAR reynolds, [employer] 2 07:55:25 Noninfec tious gastroen teritis 42042489 Completed 202107/06/2022 CESAR reynolds, [employer] 2 07:55:25 Prediabe ej 209388621 Active 2023 Kari Pleitez APRN [address] [place], [address] , [employer] 5 13:15:49 Body mass index 25-29 - overweig ht 358241955 Active 2024 Kari Pleitez APRN [address] [place], [place], [address] [place] [address] , [employer] 5 08:10:[address] [facility] emia 465126498 Active 2024 Kari Pleitez, DUGLAS [address] [place], [address] [place] [address] , [employer] 5 10:34:25 Hyperins ulinism 95181994 Active 2024 Kari Pleitez, DUGLAS [address] [place], [address] [place] [address] , [employer] 5 13:19:21 Problem Notes None recorded. Procedures Surgical History Date Name Laterality Status Provider Name and Address Organization Details Recorded Time 11/20 Cerumen Removal completed LAURITA BYNUM [employer] 3 09:40:03 07/06 Cerumen Removal completed Kym Garibay PA-C [address] [place] [address], [address] [place] [address] , [employer] 2 09:08:27 07/21 esophagogastroduodenoscopy completed JOHAN BAY LEIVA [employer] 2 07:58:09 Appendectomy completed [employer] [employer] 2 07:57:06 Tonsillectomy completed CESAR [employer] 2 07:57:19 Wrist arthroscopy/surgery completed [facility] 2 07:57:40 Back Surgery completed [facility] 2 07:57:50 Imaging Results None recorded. Procedure [...] t Available Vitals Date Recorded Body height Systolic And Diastolic Provider Name and Address Organization Details Last Updated DateTime 07/01/2025 185.42 cm 120/74 mm[Hg] LAURITA BYNUM [employer] 07/01/2025 11:37:02 Social History Question Answer Notes LastModified by Organizat ion Details LastModified Time Tobacco Smoking Status Never Smoker CESAR ABBIE reynolds, [employer] 07/06/2022 07:56:42 Do You Have An Advance Directive? No [email or web address] Information n ot available 07/06/2022 Is Your [...] Or The Highest Degree You Have Received? [id number] [email or web address] Information not available 07/06/2022 Who Is Your Employer? [employer] Information not available 07/06/2022 Do You Have A Medical Power Of Quantitative Analyst Developer? No [email or web address] Information not available 07/06/2022 What Was The Date Of Your Most Recent Tobacco Screening? 07/05/2025 Information not available 07/05/2025 What Is Your Relationship Status? [email or web address] Information not available 07/06/2022 Do You Use [...] use any illicit or recreational drugs? No [email or web address] Information not available 07/06/2022 Do you or have you ever used any other forms of tobacco or nicotine? No Information not available 09/10/2023 What is your level of alcohol consumption? None [email or web address] Information not available 07/06/2022 Are you currently employed? Yes [email or web address] Information not available 07/06/2022 Do you have access to reliable transportation? No Information not available 03/05/2023 Are you able to care for yourself independently? Yes Information not available 03/05/2023 Mental Status None recorded. Family History Relationship Description Onset Age of this Age Resolved Age Notes LastModified by Organization Details LastModified Time Father No current problems or disability [email or web address] Not available 07:55:43 Mother No current problems or disability [email or web address] Not available 07:55:43 Medical History Condition Response Hypertension Y High Cholesterol Y Immunizations Vaccine Type Date Status Note Provider Nam e and Address Organization Details Recorded Time COVID-19, mRNA, LNP-S, PF, 30 mcg/0.3 mL dose 1 completed LAURITA MYNEAR null, [employer] 09/23/2022 10:12:04 COVID-19, mRNA, LNP-S, PF, 30 mcg/0.3 mL dose 1 completed LAURITA MYNEAR null, [employer] 09/23/2022 10:12:04 Td (adult), 2 Lf tetanus toxoid, preservative free, adsorbed 6 completed JUAN TOBIASNER null, [employer] 09/19/2022 10:39:21 Past Encounters Encounter ID Performer Location Encounter Start Date Encounter Closed Date Diagnosis/Indication Diagnosis SNOMED-CT Code Diagnosis ICD10 Code Diagnosis IMO Codes Diagnosis Note [id number] [place] [address] 06/28/2025 10:14:48 06/28/2025 11:38:19 Hypoglycemia 837677687 E16.2 68355 RTW on night 06/30/2025 [id number] [place] [address] 0 07/01/2025 11:15:54 07/02/2025 10:57:06 Health Concerns Section Related Observation LastModified by Organization Detai ls LastModified Time None Recorded Concern Status LastModified by Organization Details LastModified Time None Recorded Payers Encounter Date Sequence Insurance Name Policy Number Policy Arizmendi Covered Member ID Arizmendi Member ID Guarantor Name 07/01/2025 1 [place] [id number] Tunde Paige [id number] Tunde Paige
--- OUTSIDE RECORDS SUMMARY | 2025-07-08 22:20 | XMS_ITS | Continuity of Care Document ---
Author Organization [place] - [employer] [facility], [facility] Address [address] [place] [address] Assessment Encounter Date Assessment Date Assessment LastModified by Organization Details LastModified Time 06/28/2025 06/28/2025 Tunde Paige, male with history of prediabetes, presents with an episode of hypoglycemia at work, experiencing lightheadedness, grogginess, and near-syncope. Hypoglycemic Episode Assessment: Patient experienced a hypoglycemic episode at work, characterized by lightheadedness, grogginess, and near-syncope. The episode occurred approximately 12 hours after his last substantial meal, though he had consumed some snacks in between. Blood glucose was initially low but responded to glucose tablet administration, rising to 140 mg/dL within 15 minutes. Patient also reported epistaxis and cold sweats during the episode. Given the patient's history of prediabetes (A1c 6.3% on April 20) and the response to glucose administration, this event is most consistent with a hypoglycemic episode, likely due to prolonged fasting. 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 - Advise patient to return to work on night - Follow up after blood work results are available Not available 06/28/2025 10:51:02 Plan of Treatment Reminders Order Date Submit Date Provider Last Modified By Organization Details Last Modified Time Details Appointments ANNUAL EXAM 2025 08:00A M Eladio Pleitez APRN Not available Not available Not available Lab glucose, fingersti ck, blood 2024 025 [facility], [facility] [place], [address], 06/28/2025 10:39:29 C-peptide , serum 2024 025 [place] [facility] [place], [address], 06/29/2025 12:10:10 HbA1c (hemoglob in A1c), blood 2024 025 [place] [facility] [address] [place], [address], 06/29/2025 12:10:11 CBC w/ auto diff 2024 025 [place] [facility] [address] [place] [address], [id number], 06/29/2025 12:10:09 BMP, serum or plasma 2024 025 [place] [facility] [address] [place] [address], [id number], 06/29/2025 12:10:09 Referral None recorded. Procedures None recorded. Surgeries None recorded. Imaging None recorded. Medication Orders glucose 4 gram chewable tablet 2024 025 [facility], [address] [place] [address], [id number], 07/05/2025 13:54:27 Patient TargetsNo targets recorded. Patient InstructionsNo instructions recorded. Reason for Referral None Reported. Results Created Date Observation Date Name Description Value Unit Range Abnormal Flag Note LastModifiedBy Organization Detail LastModifiedTime 06/28/20 25 06/28/2025 gluco sehaile, blood Blood Glucose: mg/dl 134 Not Available [address], [address], 06/28/2025 10:32:30 Result Notes None recorded. Problems Name Problem SNOMED Code Status Onset Date Resolution Date Notes Provider Name and Address Organization Details Recorded Time Low back pain 887751766 Completed 201605/19/2020 Problem Code: M54.5; Problem Code Type: ICD-10; Not Available [facility] 2 22:48:45 Right side sciatica 88317993164 9101 Completed 201605/19/2020 Problem Code: M54.31; Problem Code Type: ICD-10; Not Available [facility] 22:48:47 Abdomina l pain 18380622 Completed 201902/13/2021 Problem Code: R10.9; Problem Code Type: ICD-10; Not Available [facility] 22:48:45 Nausea and vomiting 35726277 Completed 201907/06/2022 Problem Code: R11.2; Problem Code Type: ICD-10; CESAR reynolds [employer]. 07:55:25 Diarrhea 63697270 Completed 201907/06/2022 Problem Code: R19.7; Problem Code Type: ICD-10; CESAR reynolds [employer]. 07:55:26 Splenome gilberto 46559458 Active 2019 Problem Code: R16.1; Problem Code Type: ICD-10; Not Available [facility] 22:48:45 Diarrhea 96548135 Completed 201902/13/2021 Problem Code: R19.7; Problem Code Type: ICD-10; CESAR reynolds [employer] 07:55:26 Hyperten sive disorder 69089370 Active 2020 Problem Code: I10; Problem Code Type: ICD-10; Krai Pleitez APRN [address] [place] [address], [address] , [employer] 13:19:35 Pain in right knee Completed 202007/06/2022 Problem Code: M25.561; Problem Code Type: ICD-10; CESAR reynolds, [employer]. 07:55:26 General examinat ion of patient Completed 202007/06/2022 CESAR reynolds, [employer]. 07:55:25 Body mass index 30+ - obesity 293786340 Active 2020 Problem Code: Z68.30; Problem Code Type: ICD-10; Not Available [facility] 22:48:47 Disorder of upper respirat ory system 448099286 Completed 202007/06/2021 Problem Code: J06.9; Problem Code Type: ICD-10; Not Available [facility] 22:48:45 COVID-19 638368854 Completed 202007/06/2022 Problem Code: U07.1; Problem Code Type: ICD-10; CESAR reynolds, [employer]. 07:55:26 Bronchop neumonia 611267878 Completed 202007/06/2022 Problem Code: J18.0; Problem Code Type: ICD-10; CESAR reynolds, [employer]. 07:55:26 [place] lesion of lung 880165195 Completed 202007/06/2022 Problem Code: R91.1; Problem Code Type: ICD-10; CESAR reynolds, [employer]. 07:55:26 Mixed hyperlip idemia 817581131 Active 2020 Problem Code: E78.2; Problem Code Type: ICD-10; Not Available [facility] 22:48:44 Influenz a vaccine needed 84443116635 06 Completed 202007/06/2022 Problem Code: Z23; Problem Code Type: ICD-10; CESAR reynolds, [employer] 07:55:25 Noninfec tious gastroen teritis 89309171 Completed 202107/06/2022 CESAR reynolds, [employer] 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 5 08:10:40 Hypoglyc emia 563440932 Active 2024 Kari Pleitez, COMMERCIAL LEASING AGENT[address], [address] [place] [address] , [employer] 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 5 13:19:21 Problem Notes None recorded. Procedures Surgical History Date Name Laterality Status Provider Name and Address Organization Details Recorded Time 11/20 Cerumen Removal completed LAURITA BYNUM [employer] 3 09:40:03 07/06 Cerumen Removal completed Kym Garibay PA-C [address] [place] [address], [address] [place] [address] , [employer] 2 09:08:27 07/21 esophagogastroduodenoscopy completed JOHAN LEIVA [employer] 2 07:58:09 Appendectomy completed CESAR LEIVA [employer] 2 07:57:06 Tonsillectomy completed CESAR [employer] 2 07:57:19 Wrist arthroscopy/surgery completed [facility] [employer] 2 07:57:40 Back Surgery completed CESAR [employer] 2 07:57:50 Imaging Results None recorded. Procedure [...] Not Available Not Available Not Available dextrometho jazlyn enesin 10 mg-100 mg/5 mL oral liquid [...] Updated DateTime 5 185.42 cm 29.3 kg/m2 843892. 79 g 73.3 [degF] 73 /min 96 % 96 % 108/67 mm[Hg] LAURITA BYNUM [employer] 5 10:32:05 Social History Question Answer Notes LastModified by Organizat ion Details LastModified Time Tobacco Smoking Status Never Smoker CESAR reynolds [employer]. 07/06/2022 07:56:42 Do You Have An Advance Directive? No [email or web address] Information n ot available 07/06/2022 Is Your [...] Or The Highest Degree You Have Received? [id number] [email or web address] Information not available 07/06/2022 Who Is Your Employer? [employer] [email or web address] Information not available 07/06/2022 Do You Have A Medical Power Of Car Scrubber? No [email or web address] Information not available 07/06/2022 What Was The Date Of Your Most Recent Tobacco Screening? 07/05/2025 Information not available 07/05/2025 What Is Your Relationship Status? [email or web address] Information not available 07/06/2022 Do You Use [...] use any illicit or recreational drugs? No [email or web address] Information not available 07/06/2022 Do you or have you ever used any other forms of tobacco or nicotine? No Information not available 09/10/2023 What is your level of alcohol consumption? None [email or web address] Information not available 07/06/2022 Are you currently employed? Yes [email or web address] Information not available 07/06/2022 Do you have access to reliable transportation? No Information not available 03/05/2023 Are you able to care for yourself independently? Yes Information not available 03/05/2023 Mental Status None recorded. Family History Relationship Description Onset Age of this Age Resolved Age Notes LastModified by Organization Details LastModified Time Father No current problems or disability [email or web address] Not available 07:55:43 Mother No current problems or disability [email or web address] Not available 07:55:43 Medical History Condition Response Hypertension Y High Cholesterol Y Immunizations Vaccine Type Date Status Note Provider Nam e and Address Organization Details Recorded Time COVID-19, mRNA, LNP-S, PF, 30 mcg/0.3 mL dose 1 completed LAURITA MYNEAR null, [employer] 09/23/2022 10:12:04 COVID-19, mRNA, LNP-S, PF, 30 mcg/0.3 mL dose 1 completed LAURITA MYNEAR null, [employer] 09/23/2022 10:12:04 Td (adult), 2 Lf tetanus toxoid, preservative free, adsorbed 6 completed JUAN BARDALES null, [employer] 09/19/2022 10:39:21 Past Encounters Encounter ID Performer Location Encounter Start Date Encounter Closed Date Diagnosis/Indication Diagnosis SNOMED-CT Code Diagnosis ICD10 Code Diagnosis IMO Codes Diagnosis Note [id number] Kari Pleitez APRN [address] [address] 06/28/2025 10:14:48 06/28/2025 11:38:19 Hypoglycemia 509874030 E16.2 93774 RTW on night 06/30/2025 Health Concerns Section Related Observation LastModified by Organization Detai ls LastModified Time None Recorded Concern Status LastModified by Organization Details LastModified Time None Recorded Payers Encounter Date Sequence Insurance Name Policy Number Policy Arizmendi Covered Member ID Arizmendi Member ID Guarantor Name 06/28/2025 1 [facility] [facility] [place] [id number] Tunde Paige [id number] Tunde Paige Notes Date Note Type Note Provider Name and Address Organization Details Recorded Time 06/28/2025 text/html ROS as noted in the HPI Chief ComplaintEpisode at work with nosebleed, lightheadedness, and feeling groggy , followed by low blood sugarHistory of Present IllnessTunde Paige, a patient with a history of prediabetes, presents following an episode of hypoglycemia at work last night. The patient reports experiencing a nosebleed, followed by light-headedness and a groggy feeling.The episode occurred at work around 2 or 3 in the morning. Tunde states he felt faint and was stumbling, prompting him to sit down. He describes feeling hollow for a minute, neither fully awake nor asleep. His coworkers checked his blood sugar, which was low, and administered glucose tablets. After 15 minutes, his blood sugar had risen to 140. Tunde mentions feeling a little better after this intervention.Tunde reports not having eaten supper before the incident. His last substantial meal was lunch, consumed around 2 or 3 PM the previous afternoon, approximately 12 hours before the episode. He did have some snacks at home, including fruits, between lunch and work. Following the incident, Tunde had a microwave meal before leaving work but hasn't eaten since then.Associated symptoms during the episode included breaking out in a cold sweat. Tunde experienced light-headedness again later, prompting his coworkers to advise him to either go home or see a doctor. He denies any current pain, chest pain, shortness of breath, or palpitations. The patient reports feeling tired and drowsy after the incident.Tunde's work schedule involves third shift, which impacts his regular meal timing. He typically consumes snacks during his shift, including meat, cheese, and peanut butter cookies. The patient does not currently have a glucometer at home for self-monitoring of blood glucose levels.Medical History- Prediabetes Kari Pleitez APRN [address] [place], [address], [facility] Results [employer] 06/28/2025 10:51:45
--- OUTSIDE RECORDS SUMMARY | 2025-07-08 22:20 | XMS_ITS | Data Portability ---
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 Plan: - Implement continuous glucose monitoring for 2 weeks to gather data for endocrinology appointment - Educate on regular meal timing and protein intake to stabilize blood glucose - Follow up with wader boot top assembler for comprehensive diabetes management plan [email or web address] Not available 07/05/2025 13:53:48 Plan of Treatment Reminders Order Date Submit Date Provider Last Modified By Organization Details Last Modified Time Details Appointments ANNUAL EXAM 2025 08:00A M Eladio Pleitez APRN Not available Not available Not available Lab glucose, fingersti ck, blood 2024 025 [facility] [address], [address], 07/05/2025 13:39:44 glucose, fingersti ck, blood 2024 025 [facility] [address], [address], 06/28/2025 10:39:29 C-peptide , serum 2024 025 JANICE [facility] ([place]), [address] [place], [address], 06/29/2025 12:10:10 HbA1c (hemoglob in A1c), blood 2024 025 JANICE [facility] ([place]), [address] [place], [address], 06/29/2025 12:10:11 CBC w/ auto diff 2024 025 JANICE [facility] ([place]), [address] [place], [address], 06/29/2025 12:10:09 BMP, serum or plasma 2024 025 JANICE [facility] ([place]), [address] [place], [address], 06/29/2025 12:10:09 CMP, serum or plasma 2024 025 JANICE [facility] ([place]), [address] [place], [address], 04/21/2025 08:11:12 CBC w/ auto diff 2024 025 JANICE [facility] ([place]), [address] [place] [address], [address], 04/21/2025 08:11:10 lipid panel, serum 2024 025 JANICE [facility] ([place]), [address] [place] [address], [address], 04/21/2025 08:11:12 HbA1c (hemoglob in A1c), blood 2024 025 JANICE [facility] ([place]), [address] [place], [address], 04/21/2025 08:11:13 TSH, ultra-sen sitive, serum 2024 025 [facility] [address] [place] [address], [place], [address], 04/21/2025 08:11:14 Referral endocrino logy referral - first available appt 2024 Rika-Resub joslyn-Revert Ebony Morris MD, [address], [place], [address], 07/06/2025 15:15:29 Procedures None recorded. Surgeries None recorded. Imaging None recorded. Medication Orders glucose 4 gram chewable tablet 2024 025 [facility], [address] [place] [address], [address], 07/05/2025 15:15:05 glucose 4 gram chewable tablet 2024 025 [facility], [address] [place] [address], [address], 07/05/2025 13:54:27 rosuvasta tin 20 mg tablet 2024 025 [facility], [address] [place] [address], [address], 06/09/2025 10:54:15 lisinopri l 10 mg-hydroc hlorothia zide 12.5 mg tablet 2024 025 [facility], [address] [place] [address], [address], 06/09/2025 10:54:11 lisinopri l 10 mg tablet 2024 025 [facility], [address] [place] [address], [address], 04/20/2025 09:08:40 Patient TargetsNo targets recorded. Patient InstructionsNo instructions recorded. Reason for Referral Endocrinology Referral for H yperinsulinism first available appt Referring Physician: Kari Pleitez, Family Medicine, Encounter Date: 07/05/2025 Results Created Date Observation Date Name Description Value Unit Range Abnormal Flag Note LastModifiedBy Organization Detail LastModifiedTime 04/20/2004/21/2025 CBC WITH DIFFE RENTI AL/PL ATELE T WBC 7.1 x10e3 /uL 3.4-10 .8 normal Not Available [facility] ([facility]) [address] [place], [address], 04/21/2025 08:11:10 04/20/2004/21/2025 CBC WITH DIFFE RENTI AL/PL ATELE T RBC 4.79 x10e6 /uL 4.14-5 .80 normal Not Available [facility] ([facility]) [address] [place], [address], 04/21/2025 08:11:10 04/20/2004/21/2025 CBC WITH DIFFE RENTI AL/PL ATELE T hemoglobin 14.6 g/dL 13.0-1 7.7 normal Not Available [facility] ([facility]) [address] [place], [address], 04/21/2025 08:11:10 04/20/2004/21/2025 CBC WITH DIFFE RENTI AL/PL ATELE T hematocrit 46.6 % 37.5-5 1.0 normal Not Available [facility] ([facility]) [address] [place], [address], 04/21/2025 08:11:10 04/20/2004/21/2025 CBC WITH DIFFE RENTI AL/PL ATELE T MCV 97 fL 79-97 normal Not Available [facility] ([facility]) [address] [place], [address], 04/21/2025 08:11:10 04/20/20 25 04/21/2025 CBC WITH DIFFE RENTI AL/PL ATELE T MCH 30.5 pg 26.6-3 3.0 normal Not Available [facility] ([facility]) [address] [facility], [place], [address], 04/21/2025 08:11:10 04/20/20 25 04/21/2025 CBC WITH DIFFE RENTI AL/PL ATELE T MCHC 31.3 g/dL 31.5-3 5.7 below low normal Not Available [facility] ([facility]) [address] [facility], [place], [address], 04/21/2025 08:11:10 04/20/2004/21/2025 CBC WITH DIFFE RENTI AL/PL ATELE T RDW 13.6 % 11.6-1 5.4 Not Available [facility] ([facility]) [address] [facility], [place], [address], 04/21/2025 08:11:10 04/20/20 25 04/21/2025 CBC WITH DIFFE RENTI AL/PL ATELE T platelets 277 x10e3 /uL 150-45 0 normal Not Available [facility] ([facility]) [address] [facility], [place], [address], 04/21/2025 08:11:10 04/20/2004/21/2025 CBC WITH DIFFE RENTI AL/PL ATELE T neutrophils 50 % not estab. normal Not Available [facility] ([facility]) [address] [place], [address], 04/21/2025 08:11:10 04/20/20 25 04/21/2025 CBC WITH DIFFE RENTI AL/PL ATELE T lymphs 36 % not estab. normal Not Available [facility] ([facility]) [address] [place], [address], 04/21/2025 08:11:10 04/20/20 25 04/21/2025 CBC WITH DIFFE RENTI AL/PL ATELE T monocytes 7 % not estab. normal Not Available [facility] ([facility]) [address] [facility], [place], [address], 04/21/2025 08:11:10 04/20/20 25 04/21/2025 CBC WITH DIFFE RENTI AL/PL ATELE T eos 6 % not estab. normal Not Available [facility] ([facility]) [address] [facility], [place], [address], 04/21/2025 08:11:10 04/20/2004/21/2025 CBC WITH DIFFE RENTI AL/PL ATELE T basos 1 % not estab. normal Not Available [facility] ([facility]) [address] [facility], [place], [address], 04/21/2025 08:11:10 04/20/20 25 04/21/2025 CBC WITH DIFFE RENTI AL/PL ATELE T immature cells MOVER HELPER Not Available [facility] ([facility]) [address] [place], [address], 04/21/2025 08:11:10 04/20/20 25 04/21/2025 CBC WITH DIFFE RENTI AL/PL ATELE T neutrophils (absolute) 3.5 x10e3 /uL 1.4-7. 0 normal Not Available [facility] ([facility]) [address] [place], [address], 04/21/2025 08:11:10 04/20/20 25 04/21/2025 CBC WITH DIFFE RENTI AL/PL ATELE T lymphs (absolute) 2.6 x10e3 /uL 0.7-3. 1 normal Not Available [facility] ([facility]) [address] [place], [address], 04/21/2025 08:11:10 04/20/20 25 04/21/2025 CBC WITH DIFFE RENTI AL/PL ATELE T monocytes(ab solute) 0.5 x10e3 /uL 0.1-0. 9 normal Not Available [facility] ([facility]) [address] [facility], [place], [address], 04/21/2025 08:11:10 04/20/20 25 04/21/2025 CBC WITH DIFFE RENTI AL/PL ATELE T eos (absolute) 0.4 x10e3 /uL 0.0-0. 4 normal Not Available [facility] ([facility]) [address] [facility], [place], [address], 04/21/2025 08:11:10 04/20/20 25 04/21/2025 CBC WITH DIFFE RENTI AL/PL ATELE T baso (absolute) 0.1 x10e3 /uL 0.0-0. 2 normal Not Available [facility] ([facility]) [address] [place], [address], 04/21/2025 08:11:10 04/20/20 25 04/21/2025 CBC WITH DIFFE RENTI AL/PL ATELE T immature granulocytes 0 % not estab. Not Available [facility] ([facility]) [address] [place], [address], 04/21/2025 08:11:10 04/20/20 25 04/21/2025 CBC WITH DIFFE RENTI AL/PL ATELE T immature grans (abs) 0.0 x10e3 /uL 0.0-0. 1 Not Available [facility] ([facility]) [address] [place], [address], 04/21/2025 08:11:10 04/20/20 25 04/21/2025 CBC WITH DIFFE RENTI AL/PL ATELE T NRBC MOVER HELPER Not Available [facility] ([facility]) [address] [place], [address], 04/21/2025 08:11:10 04/20/20 25 04/21/2025 CBC WITH DIFFE ROS AL/PL KWABENA T hematology comments: MOVER HELPER Not Available [facility] ([facility]) [address] [facility], [place], [address], 04/21/2025 08:11:10 04/20/20 25 04/21/2025 COMP. METAB OLIC PANEL (14) glucose 104 mg/dL 70-99 above high normal Not Available [facility] ([facility]) [address] [facility], [place], [address], 04/21/2025 08:11:12 04/20/20 25 04/21/2025 COMP. METAB OLIC PANEL (14) BUN 8 mg/dL 6-24 normal Not Available [facility] ([facility]) [address] [facility], [place], [address], 04/21/2025 08:11:12 04/20/20 25 04/21/2025 COMP. METAB OLIC PANEL (14) creatinine 0.81 mg/dL 0.76-1 .27 normal Not Available [facility] ([facility]) [address] [facility] [place], [address], 04/21/2025 08:11:12 04/20/20 25 04/21/2025 COMP. METAB OLIC PANEL (14) eGFR 111 mL/mi n/1.7 3 >59 normal Not Available [facility] ([facility]) [address] [facility] [place], [address], 04/21/2025 08:11:12 04/20/20 25 04/21/2025 COMP. METAB OLIC PANEL (14) BUN/creatini ne ratio 10 9-20 normal Not Available [facility] ([facility]) [address] [facility] [place], [address], 04/21/2025 08:11:12 04/20/20 25 04/21/2025 COMP. METAB OLIC PANEL (14) sodium 139 mmol/ L 134-14 4 normal Not Available [facility] ([facility]) [address] [place], [address], 04/21/2025 08:11:12 04/20/20 25 04/21/2025 COMP. METAB OLIC PANEL (14) potassium 4.0 mmol/ L 3.5-5. 2 normal Not Available [facility] ([facility]) [address] [place], [address], 04/21/2025 08:11:12 04/20/20 25 04/21/2025 COMP. METAB OLIC PANEL (14) chloride 100 mmol/ L 96-106 normal Not Available [facility] ([facility]) [address] [place], [address], 04/21/2025 08:11:12 04/20/20 25 04/21/2025 COMP. METAB OLIC PANEL (14) carbon dioxide, total 24 mmol/ L 20-29 normal Not Available [facility] ([facility]) [address] [place], [address], 04/21/2025 08:11:12 04/20/20 25 04/21/2025 COMP. METAB OLIC PANEL (14) calcium 9.9 mg/dL 8.7-10 .2 normal Not Available [facility] ([facility]) [address] [place], [address], 04/21/2025 08:11:12 04/20/20 25 04/21/2025 COMP. METAB OLIC PANEL (14) protein, total 7.1 g/dL 6.0-8. 5 normal Not Available [facility] ([facility]) [address] [place], [address], 04/21/2025 08:11:12 04/20/20 25 04/21/2025 COMP. METAB OLIC PANEL (14) albumin 4.8 g/dL 4.1-5. 1 normal Not Available [facility] ([facility]) [address] [facility] [place], [address], 04/21/2025 08:11:12 04/20/20 25 04/21/2025 COMP. METAB OLIC PANEL (14) globulin, total 2.3 g/dL 1.5-4. 5 Not Available [facility] ([facility]) [address] [place], [address], 04/21/2025 08:11:12 04/20/20 25 04/21/2025 COMP. METAB OLIC PANEL (14) bilirubin, total 0.2 mg/dL 0.0-1. 2 normal Not Available [facility] ([facility]) [address] [place], [address], 04/21/2025 08:11:12 04/20/20 25 04/21/2025 COMP. METAB OLIC PANEL (14) alkaline phosphatase 84 IU/L 44-121 normal Not Available [facility] ([facility]) [address] [place], [address], 04/21/2025 08:11:12 04/20/20 25 04/21/2025 COMP. METAB OLIC PANEL (14) AST (SGOT) 25 IU/L 0-40 normal Not Available [facility] ([facility]) [address] [facility] [place], [address], 04/21/2025 08:11:12 04/20/20 25 04/21/2025 COMP. METAB OLIC PANEL (14) ALT (SGPT) 32 IU/L 0-44 normal Not Available [facility] ([facility]) [address] [facility] [place], [address], 04/21/2025 08:11:12 04/20/20 25 04/21/2025 LIPID PANEL cholesterol, total 131 mg/dL 100-19 9 normal Not Available [facility] ([facility]) [address] [facility] [place], [address], 04/21/2025 08:11:12 07/09/20 25 04/21/2025 LIPID PANEL triglyceride s 208 mg/dL 0-149 above high normal Not Available [facility] ([facility]) [address] [place], [address], 04/21/2025 08:11:12 04/20/20 25 04/21/2025 LIPID PANEL HDL cholesterol 31 mg/dL >39 below low normal Not Available [facility] ([facility]) [address] [place], [address], 04/21/2025 08:11:12 04/20/20 25 04/21/2025 LIPID PANEL VLDL cholesterol roney 35 mg/dL 5-40 Not Available [facility] ([facility]) [address] [place], [address], 04/21/2025 08:11:12 04/20/2004/21/2025 LIPID PANEL LDL chol calc ([facility]) 65 mg/dL 0-99 Not Available [facility] ([facility]) [address] [place], [address], 04/21/2025 08:11:12 04/20/2004/21/2025 LIPID PANEL LDL calc comment: MOVER HELPER Not Available [facility] ([facility]) [address] [place], [address], 04/21/2025 08:11:12 04/20/2004/21/2025 HEMOG LOBIN A1C hemoglobin A1C 6.3 % 4.8-5. 6 above high normal Predi abete s: 5.7 - 6.4 Diabe ej: >6.4 Glyce vera contr ol for adult s with diabe ej: <7.0 Not Available [facility] ([facility]) [address] [place], [address], 04/21/2025 08:11:13 04/20/20 25 04/21/2025 TSH RFX ON ABNOR MAL TO FREE T4 TSH 0.919 uIU/m L 0.450- 4.500 normal Not Available [facility] ([facility]) [address] [facility] [place], [address], 04/21/2025 08:11:14 06/28/2006/28/2025 gluco se, finge rstic k, blood Blood Glucose: mg/dl 134 Not Available [address], [address], 06/28/2025 10:32:30 07/05/2007/05/2025 gluco se, finge rstic k, blood Blood Glucose: mg/dl 88 Not Available [address], [address], 07/05/2025 13:14:12 Result Notes None recorded. Problems Name Problem SNOMED Code Status Onset Date Resolution Date Notes Provider Name and Address Organization Details Recorded Time Low back pain 927644836 Completed 201605/19/2020 Problem Code: M54.5; Problem Code Type: ICD-10; Not Available [facility] 22:48:45 Right side sciatica [id number] 9101 Completed 201605/19/2020 Problem Code: M54.31; Problem Code Type: ICD-10; Not Available [facility] 22:48:47 Abdomina l pain 67718484 Completed 201902/13/2021 Problem Code: R10.9; Problem Code Type: ICD-10; Not Available [facility] 22:48:45 Nausea and vomiting 19481818 Completed 201907/06/2022 Problem Code: R11.2; Problem Code Type: ICD-10; CESAR reynolds [employer] 07:55:25 Diarrhea 70277210 Completed 201907/06/2022 Problem Code: R19.7; Problem Code Type: ICD-10; CESAR reynolds [employer] 2 07:55:26 Gerardo macias 25138165 Active 2019 Problem Code: R16.1; Problem Code Type: ICD-10; Not Available [facility] 2 22:48:45 Diarrhea 14264201 Completed 201902/13/2021 Problem Code: R19.7; Problem Code Type: ICD-10; CESAR reynolds, [employer] 2 07:55:26 Hyperten sive disorder 70678259 Active 2020 Problem Code: I10; Problem Code Type: ICD-10; Kari Pleitez, NAVIGATING OFFICER [address] [place] [address], [address] , [employer]. 5 13:19:35 Pain in right knee Completed 202007/06/2022 Problem Code: M25.561; Problem Code Type: ICD-10; CESAR reynolds, [employer] 2 07:55:26 General examinat ion of patient Completed 202007/06/2022 CESAR reynolds, [employer]. 2 07:55:25 Body mass index 30+ - obesity 352809993 Active 2020 Problem Code: Z68.30; Problem Code Type: ICD-10; Not Available [facility] 2 22:48:47 Disorder of upper respirat ory system 045209214 Completed 202007/06/2021 Problem Code: J06.9; Problem Code Type: ICD-10; Not Available [facility] 2 22:48:45 COVID-19 027594802 Completed 202007/06/2022 Problem Code: U07.1; Problem Code Type: ICD-10; CESAR reynolds, [employer] 2 07:55:26 Bronchop neumonia 745996110 Completed 202007/06/2022 Problem Code: J18.0; Problem Code Type: ICD-10; CESAR reynolds, [employer] 2 07:55:26 Colo lesion of lung 148585249 Completed 202007/06/2022 Problem Code: R91.1; Problem Code Type: ICD-10; CESAR reynolds, [employer] 2 07:55:26 Mixed hyperlip idemia 628682554 Active 2020 Problem Code: E78.2; Problem Code Type: ICD-10; Not Available [employer] 22:48:44 Influenz a vaccine needed 19987658588 06 Completed 202007/06/2022 Problem Code: Z23; Problem Code Type: ICD-10; CESAR reynolds, [employer] 2 07:55:25 Noninfec tious gastroen teritis 81205826 Completed 202107/06/2022 CESAR reynolds, [employer] 07:55:25 Prediabe ej 477666180 Active 2023 Kari Pleitez APRN [address] [place] [address], [address] , [employer] 13:15:49 Body mass index 25-29 - overweig ht 638933145 Active 2024 Kari Pleitez APRN [address] [place] [address], [address] , [employer] 08:10:40 Hypoglyc emia 759634055 Active 2024 Kari Pleitez APRN [address] [place], [address] , [employer] 10:34:25 Hyperins ulinism 89880867 Active 2024 Kari Pleitez APRN [address] [place], [address] , [employer] 09/23/202 5 13:19:21 Problem Notes None recorded. Procedures Surgical History Date Name Laterality Status Provider Name and Address Organization Details Recorded Time 11/20 Cerumen Removal completed LAURITA MYLAURIE [employer]. 3 09:40:03 07/06 Cerumen Removal completed Kym Garibay PA-C [address] [place] [address], [address] , [employer] 2 09:08:27 07/21 esophagogastroduodenoscopy completed JOHANKEN BAY [employer] 2 07:58:[address] [employer] 2 07:57:06 Tonsillectomy completed CESAR [employer] 2 07:57:19 Wrist arthroscopy/surgery completed [address] [employer]. 2 07:57:40 Back Surgery completed [employer]. 2 07:57:50 Imaging Results None recorded. Procedure [...] Details Last Updated DateTime 5 185.42 cm 30.2 kg/m2 352502. 93 g 98 [degF] 76 /min 96 % 96 % 116/70 mm[Hg] LAURITA [employer] 5 09:44:56 Date Recorded Body height Body mass index (BMI) Body weight Body temperature Heart rate Oxygen saturation Oxygen saturation in Arterial blood by Pulse oximetry Systolic And Diastolic Provider Name and Address Organization Details Last Updated DateTime 5 185.42 cm 29.6 kg/m2 574690. 69 g 97.8 [degF] 63 /min 96 % 96 % 103/64 mm[Hg] LAURITA [employer] 5 08:07:18 Date Recorded Body height Body mass index (BMI) Body weight Body temperature Heart rate Oxygen saturation Oxygen saturation in Arterial blood by Pulse oximetry Systolic And Diastolic Provider Name and Address Organization Details Last Updated DateTime 5 185.42 cm 29.3 kg/m2 491216. 79 g 73.3 [degF] 73 /min 96 % 96 % 108/67 mm[Hg] LAURITA [employer] 5 10:32:05 Date Recorded Body height Systolic And Diastolic Provider Name and Address Organization Details Last Updated DateTime 07/01/2025 185.42 cm 120/74 mm[Hg] LAURITA GradalisR [employer] [facility] [employer]. 07/01/2025 11:37:02 Date Recorded Body height Body mass index (BMI) Body weight Body temperature Heart rate Oxygen saturation Oxygen saturation in Arterial blood by Pulse oximetry Systolic And Diastolic Provider Name and Address Organization Details Last Updated DateTime 5 185.42 cm 29.3 kg/m2 403771. 22 g 99 [degF] 90 /min 96 % 96 % 125/78 mm[Hg] LAURITA [employer]. 5 13:13:38 Social History Question Answer Notes LastModified by Organizat ion Details LastModified Time Tobacco Smoking Status Never Smoker CESAR reynolds, [facility] [employer], [facility]. 07/06/2022 07:56:42 Do You Have An Advance Directive? No [email or web address] Information n ot available 07/06/2022 Is Your [...] Or The Highest Degree You Have Received? [id number] [email or web address] Information not available 07/06/2022 Who Is Your Employer? [employer] [email or web address] Information not available 07/06/2022 Do You Have A Medical Power Of Marine Service Manager? No [email or web address] Information not available 07/06/2022 What Was The Date Of Your Most Recent Tobacco Screening? 07/05/2025 Information not available 07/05/2025 What Is Your Relationship Status? [email or web address] Information not available 07/06/2022 Do You Use [...] use any illicit or recreational drugs? No Information not available 07/06/2022 Do you or have you ever used any other forms of tobacco or nicotine? No Information not available 09/10/2023 What is your level of alcohol consumption? None [email or web address] Information not available 07/06/2022 Are you currently employed? Yes [email or web address] Information not available 07/06/2022 Do you have access to reliable transportation? No Information not available 03/05/2023 Are you able to care for yourself independently? Yes Information not available 03/05/2023 Mental Status None recorded. Family History Relationship Description Onset Age of this Age Resolved Age Notes LastModified by Organization Details LastModified Time Father No current problems or disability [email or web address] Not available 07:55:43 Mother No current problems or disability [email or web address] Not available 07:55:43 Medical History Condition Response High Cholesterol Y Hypertension Y Immunizations Vaccine Type Date Status Note Provider Nam e and Address Organization Details Recorded Time COVID-19, mRNA, LNP-S, PF, 30 mcg/0.3 mL dose 1 completed LAURITA reynolds, [employer] 09/23/2022 10:12:04 COVID-19, mRNA, LNP-S, PF, 30 mcg/0.3 mL dose 1 completed LAURITA reynolds, [employer] 09/23/2022 10:12:04 Td (adult), 2 Lf tetanus toxoid, preservative free, adsorbed 6 completed JUAN reynolds, [employer] 09/19/2022 10:39:21 Past Encounters Encounter ID Performer Location Encounter Start Date Encounter Closed Date Diagnosis/Indication Diagnosis SNOMED-CT Code Diagnosis ICD10 Code Diagnosis IMO Codes Diagnosis Note [id number] Kym Garibay PA-C [address] [address] 07/06/2022 07:57:28 07/06/2022 09:23:56 Impacted cerumen of bilateral ears [id number] 735040 H61.23 [id number] Kecia Gonsalez [place] [address] 0 09/19/2022 10:34:23 09/19/2022 11:05:29 Fever 782655418 R50.9 COVID-19 827527926 U07.1 Cough 15690252 R05.9 Body mass index 30+ - obesity 359288698 Z68.30 [id number] Kari Pleitez [place] [address] 0 09/23/2022 10:01:47 09/23/2022 10:39:25 Low back pain 119941020 M54.40 RCIE, continue stretches, to RTC in 1 week if sx are not improved. [id number] Kari Pleitez [place] [address] 0 11/18/2022 10:34:52 11/18/2022 11:10:54 Primary herpes simplex infection of lips 895255086 B00.1 Etiology and duration of herpes labialis explained. Pain control, use of valtrex explained. Pain in coccyx 16940067 M53.3 RICE, obtain x ray. [id number] [place] [address] 0 11/20/2022 09:14:52 11/20/2022 09:42:41 Impacted cerumen in right ear 8962627806 474680 H61.21 [id number] [place] [address] 0 12/17/2022 07:49:51 12/17/2022 08:46:48 Hypertensive disorder 59931323 I10 DASh diet, exercise, and weight loss encouraged . Continue current medication s. Mixed hyperlipidemia 267 643005 E78.2 Adult [facility] th examination [id number] Z00.00 Body mass index 30+ - obesity 634208449 Z68.30 Lumbosacra l radiculopathy 4052810 M54.17 [id number] aKri Pleitez [place] [id number] 03/05/2023 08:54:57 03/05/2023 09:51:38 Transient cerebral ischemia [id number] G45.9 Increase HCTZ to 25 mg daily. I have to wonder if he did not have a TIA but rather new onset of severe cluster headache. He is to keep his neurology follow-up appointmen t that is scheduled for next Friday. He is to remain off work for 1 month. He is to continue the aspirin and the statin. I have discussed with him consequenc es of new onset type 2 diabetes and he agrees to work on low carbohydra te diet exercise and weight loss. If he is not successful with lifestyle modificati ons and he will need to begin medication s for diabetes. I will see him back in 1 month and he is instructed to bring his blood pressure log with him. I also emphasized the importance of medication compliance including taking the aspirin for likely the rest of his life. Type 2 terra betes mellitus without complication [id number] E11.9 Diabetic diet explained in detail. [id number] Kari Pleitez [place] [address] 0 04/04/2023 08:48:20 04/04/2023 09:33:08 Transient cerebral ischemia [id number] G45.9 To remain off work for 2 more months due to persistent fatigue and poor activity tolerance and. Hopefully you can return to work when I see you back in 2 months. He is to continue his home PT program for cardiovasc ular reconditio jasmyn. Continue current medication s and the low carb low fat diet. Type 2 terra betes mellitus without complication 359009009 E11.9 Diabetic diet explained in detail. Recheck you A1c and fasting labs at next appt. [id number] Kari Pleitez [address] [phone] 06/04/2023 08:26:17 06/04/2023 10:26:09 Mixed hyperlipidemia 865053826 E78.2 He is to continue the statin and the aspirin. Type 2 terra betes mellitus without complication 068526393 E11.9 Continue current medication s, continue diabetic diet. Transient cerebral ischemia 781395921 G45.9 Patient may return to work without restrictio ns and if full-time hours starting tomorrow. Please see completed [place] release papers for full details of return to work. These were given to him today and faxed to his employer. [id number] [place] [address] 0 09/10/2023 10:40:11 09/10/2023 11:35:44 Type 2 diabetes mellitus without complication 789022716 E11.9 Continue current medication s, continue diabetic diet. Hypertensive disorder 38 113077 I10 Continue HCTZ, low salt intake and ETOH moderation . [id number] [place] [address] 0 09/29/2023 12:51:59 09/29/2023 14:08:13 Fever 329407382 R50.9 Acute sinusitis 34435651 J01.90 Body mass index 25-29 - overweight 123501278 Z68.27 [id number] [place] [address] 0 02/23/2024 09:27:16 02/23/2024 10:03:04 Prediabetes 255669733 R73.03 A1c has increased. Again emphasized low carb diet and exercise. Hypertensive disorder 38 444967 I10 Continue HCTZ, low salt intake and ETOH moderation . Mixed hyperlipidemia 267 610826 E78.2 He is to continue the statin and the aspirin. Adult [facility] th examination 474221375 Z00.00 The patient advised to continue a healthy diet and exercise regularly. He was also advised to:have a dermatogy skin screening . Labs will be sent. Advised patient to follow up in 1 year or sooner if needed. Body mass index 25-29 - overweight 023235614 Z68.28 [id number] Kari Pleitez [place] [address] 0 11/23/2024 09:01:27 11/23/2024 09:27:16 Prediabetes 328929650 R73.03 Again emphasized low carb diet and exercise. Hypertensive disorder 38 602779 I10 Continue HCTZ, low salt intake and ETOH moderation . Mixed hyperlipidemia 267 965633 E78.2 He is to continue the statin and the aspirin. Body mass index 25-29 - overweight 406309803 Z68.28 [id number] [place] [id number] 12/15/2024 08:40:27 12/15/2024 09:32:56 Acute upper respiratory infection 21558503 J06.9 May RTW today. Continue to monitor BP.Patient presented with symptoms of upper respirator y infection. Advised to drink plenty of fluids, run a cool-mist humidifier in room at night, gargle salt water for sore throat, and get plenty of rest. Patient should avoid over-exert ion and reduce exposure to irritants such as smoke, cold, dry air, and dust. Treatment currently involves symptomati c relief. Patient may take acetaminop hen or ibuprofen as directed to reduce fever and body aches. Antihistam ine and decongesta nt usage was discussed and recommenda tions made. Patient understood these instructio ns and will follow up in the office in 10 days to 2 weeks if symptoms not improving. [id number] [place] [id number] 01/25/2025 08:51:25 01/25/2025 09:39:36 Cough 35041465 R05.9 Acute bronchitis 8240293 2 J20.9 Cough The patient presents wet cough. The patient's condition is worsening. Based on the findings today we will begin medication therapy. Reviewed symptomati c care instructio ns, the expected course of these illnesses and explained that coughing can persist for some time. Provided precaution s for signs of worsening disease and instructio ns on contacting us if symptoms worsen. [id number] [place] [id number] 04/05/2025 09:35:07 04/05/2025 10:04:32 Hypertensive disorder 56058847 I10 Add lisinopril 10 mg daily. Continue HCTZ. Check BP at home every evening. Ensure low salt diet with adequate hydration. RTC in 2 weeks with BP log. [id number] [place] [phone] 04/20/2025 07:57:23 04/20/2025 08:24:22 Hypertensive disorder 42557644 I10 DASH diet, avoid ETOH, exercise. Monitor BP at home routinely and report excursions . Prediabetes 585022316 R7 3.03 Again emphasized low carb diet and exercise. Body mass index 25-29 - overweight 457579252 E66.3 93170227 Mixed hyperlipidemia 267 480331 E78.2 He is to continue the statin and the aspirin. [id number] [place] [address] 0 06/28/2025 10:14:48 06/28/2025 11:38:19 Hypoglycemia 237285508 E16.2 [id number] RTW on night 06/30/2025 [id number] [place] [address] 0 07/01/2025 11:15:54 07/02/2025 10:57:06 [id number] [place] [address] 0 07/05/2025 12:57:11 07/05/2025 14:06:01 Hypoglycemia 604469395 E16.2 [id number] Obtain and carry the prescribed glucose tablets Prediabetes 871281610 R7 3.03 [id number] Again emphasized regular low carb diet and exercise. Hypertensive disorder 38 357204 I10 DASH diet, avoid ETOH, exercise. Monitor BP at home routinely and report excursions . Hyperinsulinism 74666246 E16.1 [id number] Off work for 2 weeks until seen by Endo, tentative RTW date will be 07/25/25. Begin 2 week CGM with Leena Harrison. Health Concerns Section Related Observation LastModified by Organization Detai ls LastModified Time None Recorded Concern Status LastModified by Organization Details LastModified Time None Recorded Advance Directives Directive N: Payers Insurance Date Sequence Insurance Name Policy Number Policy Arizmendi Covered Member ID Arizmendi Member ID Guarantor Name 07/04/2025 1 [place] [id number] Tunde Paige [id number] Tunde Paige Notes Date Note Type Note Provider Name and Address Organization Details Recorded Time 5 text/htm l Hypertension F/UReported by PatientHPIFor associated symptoms, patient reportsheadachebut reportsno dizziness,no lightheadedness,no chest pain,no shortness of breath,no palpitations,no edema, andno calf pain with exertion. For medications, patient reportstaking medications as directedandno side effects from medication. For lifestyle, patient reportsregular exerciseandlimits sodium intake.ROS as noted in the HPI Complains of elevated BP with headaches in the afternoons and evenings. He reports BP recently was 190/110. Kari Pleitez, NAVIGATING OFFICER [address] [place] [address], [phone], [facility] [employer], [facility]. 04/05/2025 12:54:23 5 text/htm l HyperlipidemiaReported by PatientHPIFor duration, patient reportschronic. For adherence to treatment plan, patient reportsdoes not follow recommended dietbut reportsexercisesandtakes medications as prescribed. For complications, patient reportscardiovascular disease(hx cva). For risk factors, patient reportsfamily history of premature arteriosclerotic cardiovascular disease,diabetes,hypertensio n,obesity, andconsumption of saturated fats and trans-fatty acids. For control, patient reportsimproving. Hypertension F/UReported by PatientHPIFor medications, patient reportstaking medications as directedandno side effects from medication. For lifestyle, patient reportsregular exerciseandlimits sodium intake. For associated symptoms, patient reportsno dizziness,no lightheadedness,no chest pain,no shortness of breath,no palpitations,no edema,no calf pain with exertion, andno headache.BP improved with addition of Lisinopril at last apptROS as noted in the HPI Needs f/up on Prediabetes. Has no complaints and feels well today. Kari DUGLAS Pleitez [address] [facility] [place], [address], [employer]. 04/20/2025 09:15:02 5 text/htm l ROS as noted in the HPI Chief [...] of blood glucose levels.Medical History- Prediabetes Kari DUGLAS Pleitez [address] [facility] [place], [address], [employer] 06/28/2025 10:51:45 5 text/htm l ROS as noted in the HPI Chief ComplaintFollow-up for hypoglycemic episode at work, elevated blood pressure, prediabetes diagnosisHistory of Present IllnessTnude Paige, a patient with prediabetes and hypertension, [...] dizziness.Endocrine: Positive for hypoglycemia episodes. Kari Pleitez, DUGLAS [address] [facility] [place], [address], [facility] [employer] 07/05/2025 13:54:30
[2025-07-08 22:26] VITALS: BP 155/102; PULSE 68; RESP 16; TEMP 36.7; O2SAT 95; BMI 29.2
--- NOTE | 2025-07-08 22:32 | HMH.EDGENADL ---
Discharge Plan Disposition Patient Disposition: Home, Self-Care Prescriptions Prescriptions: No Action No Known Home Medications Referrals Follow up/Referrals: Kari Pleitez [Primary Care Provider, Medical] - See instructions Activity Restrictions/Add. Instructions Additional Instructions/Restrictions: Please follow-up with your primary care provider. Please return to the emergency department if you develop any new or worsening symptoms or become concerned for your health. Clinical Impressions Clinical Impression: Hypoglycemia Instructions Patient Instructions: DI for Hyperglycemia -- Adult Print Language Print Language: Maori Discharge ED Provider: María Alcantar General Adult HPI <María Alcantar DO - Last Filed: 07/11/25 01:22> General Chief complaint: Hyper/Hypoglycemia Stated complaint: low blood sugar Time Seen by Provider: 07/08/25 22:16 Mode of Arrival: Ambulatory Source of Information: Patient Description of Symptoms (Recalled from ER Triage Doc. by RN): Pt presents for evaluation of hypoglycemia that has been an issue for the past week with a recent dexcom implanted per PCP in [place]. Pt reports sugar dropping to the lower 60's feeling lethargic when it does drop. Pt aox4, NAD noted, RR even and non labored at this time. History of Present Illness HPI narrative: Patient is a 44-year-old gentleman who presented to the emergency department with concern for hypoglycemia. Patient states that over the last week he has been having some hypoglycemic episodes. Patient states that he had a syncopal episode while at work and has been worked up for hypoglycemia by his primary care provider and was put on a Dexcom. Patient states that today while at work his Dexcom read low patient ate a candy bar and it came up. States that he has been feeling more tired than usual but he has not had any syncope chest pain shortness of breath abdominal pain nausea vomiting or diarrhea. Patient has no respiratory distress. Patient denies any history of diabetes or other medical problems. Patient states that he has never had hypoglycemic episodes in the past. Patient states that he has an endocrinology appointment next week. Related Data Home Medications ?Medication ?Instructions ?Recorded ?Confirmed No Known Home Medications 07/21/20 07/21/20 Allergies Allergy/AdvReac Type Severity Reaction Status Date / Time No Known Allergies Allergy Verified 07/21/20 08:47 PFSH <María Alcantar DO - Last Filed: 07/11/25 01:22> [facility] Disclaimer: The information contained in this section may have been updated after the patient was seen, as this information can be updated by other users. Social History Smoking Status: Never smoker alcohol intake: never substance use type: denies use current occupational status: employed Travel in the last 8 weeks?: None household members: spouse housing: house current occupation: [employer] current occupational exposures/hazards: No caffeine: No Have you lived/traveled outside [place] in past 30 days?: No Contact w/someone who lives/traveled outside US past 30 days?: No Exposure to someone with infectious disease in past 14 days?: No Do you have a fever (greater than 100.4 F or 38 C)?: No Have you tested positive for COVID-19?: No Exposed to someone with COVID-19 in past 14 days?: No Do you have a sore throat?: No Do you have a cough?: No Do you have any weakness?: No Do you have any diarrhea?: No Are you experiencing any unusual bleeding?: No Do you have any muscle aches/pain?: No Do you have any abdominal pain?: No Are you experiencing loss of taste or smell?: No Other Medical History Have you received the Flu Vaccine for this season: No Have you received the Pneumonia Vaccine: Yes <María Alcantar, - Last Filed: 07/11/25 01:22> ROS Obtained: Yes All systems reviewed & no additional complaints except as documented and Yes Systems reviewed as appropriate & no additional complaints except as documented Physical Exam <María Alcantar DO - Last Filed: 07/11/25 01:22> General General appearance: alert and in no apparent distress Head Head exam: atraumatic, normocephalic and normal inspection Eye Eye exam: Present normal appearance, PERRL and EOMI; Absent scleral icterus ENT ENT exam: Present normal exam and normal external ear exam Neck Neck exam: Present normal inspection and full ROM Chest Chest inspection: Present normal inspection and symmetric chest wall rise Respiratory Respiratory exam: Present normal lung sounds bilaterally; Absent respiratory distress or wheezes Cardiovascular Cardiovascular exam: Present regular rate, normal rhythm and normal heart sounds Abdominal Exam Abdominal exam: Present soft and distention; Absent tenderness, guarding or rebound Extremities Exam Extremities exam: Present normal inspection and full ROM Back Exam Back exam: Present normal inspection and full ROM Neurological Exam Neurological exam: Present alert and oriented X3 Psychiatric Psychiatric exam: Present normal affect and normal mood Skin Skin exam: Present warm and dry Medical Decision Making <María Alcantar, DO - Last Filed: 07/11/25 01:22> Medical Records Medical records reviewed: Yes I reviewed the patient's medical records. Screening: Per USPSTF and CDC recommendations, given the prevalence of disease in our region, it is our hospital?s policy to screen for HIV and viral Hepatitis for all patients aged 18 and over and those with ongoing risk factors. Donovan Inquiry Pt receiving controlled substance: No Vital Signs: 07/08/25 22:26 07/09/25 00:01 07/09/25 00:26 Temperature 98.1 F 98.0 F Temperature Source Oral Oral Pulse Rate 59 L 67 Pulse Rate [Radial] 68 Respiratory Rate 16 15 Blood Pressure 189/126 H 158/98 H Blood Pressure [Right Arm] 155/102 H Blood Pressure Mean [Right Arm] 119 Blood Pressure Source Automatic Cuff Blood Pressure Position [Right Arm] Sitting 02 Sat by Pulse Oximetry 95 98 Oxygen Delivery Method Room Air Room Air Lab Data Lab results reviewed: Yes I reviewed the patient's lab results. Lab Results 07/08/25 22:24: WBC 8.4, RBC 4.89, Hgb 15.2, Hct 44.4, MCV 90.8, MCH 31.1, MCHC 34.2, RDW 12.1, Plt Count 269, MPV 11.2 H, Neut % (Auto) 52.0, Lymph % (Auto) 32.1, [place] % (Auto) 10.7 H, Eos % (Auto) 3.8, Baso % (Auto) 1.0, Neut # (Auto) 4.4, Lymph # (Auto) 2.7, [place] # (Auto) 0.9, Eos # (Auto) 0.3, Baso # (Auto) 0.1, Sodium 140, Potassium 3.6, Chloride 99, Carbon Dioxide 29, Anion Gap 15.6 H, BUN 9, Creatinine 0.70, Estimated Creat Clear 192, Estimated GFR 123, Est GFR ( Amer) 148, Glucose 90, Calcium 9.6, Total Bilirubin 0.5, AST 37, ALT 37, Alkaline Phosphatase 69, Total Protein 7.7, Albumin 4.8, Globulin 2.9, Albumin/Globulin Ratio 1.7, HCV Ab TONIA w/Rflx PCR Qn Negative, HIV Ag/Ab Combo Qual Negative 07/08/25 23:01: SARS-CoV-2 (PCR) Not detected, Influenza Type A (PCR) Not detected, Influenza Type B (PCR) Not detected, RSV (PCR) Not detected, Rhinovirus (PCR) Not detected 07/08/25 22:24 07/08/25 22:24 Orders (Tests/Meds): ED MEDICATIONS Discontinued Medications Generic Name Dose Route Start Last Admin Trade Name Crystal PRN Reason Stop Dose Admin Acetaminophen 1,000 mg 07/08/25 22:45 07/08/25 22:59 Acetaminophen 500mg Tab PO 07/08/25 22:46 1,000 mg ONCE ONE Administration Sodium Chloride 1,000 mls @ 999 mls/hr 07/08/25 22:45 07/09/25 00:28 Sod Chlor 0.9% 1000ml Bag IV 07/08/25 23:45 Infused .Q1H1M ONE Infusion Ketorolac Tromethamine 30 mg 07/08/25 22:45 07/08/25 22:59 Ketorolac 30mg/Ml Vial IV 07/08/25 22:46 30 mg ONCE ONE Administration ORDERS Category Date Time Status CT head/brain wo con Stat Cat Scan 07/08/25 22:45 Completed CBC w/Auto Diff [Complete Blood Count Auto Diff] Stat Lab 07/08/25 22:24 Completed CMP [Comprehensive Metabolic Panel] Stat Lab 07/08/25 22:24 Completed HIV Combo Stat Lab 07/08/25 22:24 Completed Hepatitis C Ab Qual. W/ RFX Stat Lab 07/08/25 22:24 Completed Mini Respiratory Panel Stat Lab 07/08/25 23:01 Completed Medical Decision Narrative: Patient is a 44-year-old gentleman who presented to the emergency department with hypoglycemic episodes. On arrival, patient was hemodynamically stable with unremarkable vital signs. Differential includes but not limited to: False Dexcom readings, poor oral intake, new onset diabetes, dehydration, amongst others. Patient's labs were reviewed and interpreted by myself: CBC showed no leukocytosis, hemoglobin was stable. CMP was unremarkable. Cinthia OLSON: I assumed care of the patient at the time of handoff from the prior provider. On reassessment, patient is asymptomatic. His Dexcom reads 64. A fingerstick from our machine reads mid 84. His chemistry from several hours ago showed a blood sugar of 90. There may be some component of Dexcom malfunction, however, I do think that he is truly experiencing hypoglycemia intermittently. I discussed with him that there are additional tests that should be run to potentially diagnose an insulinoma or other endocrine pathology. He reports that he would prefer not to be admitted to the hospital at this time, he has a follow-up appointment on Friday, less than a week, to further evaluate this. He reports that he can usually tell when he is feeling bad, and the alarm on the Dexcom arouses him when it beeps. He also reports that he can see his blood sugar improve after he eats. Given this, though I would prefer to admit him for symptomatic hypoglycemia and further workup, I think he could realistically be treated on an outpatient basis given he is reliable and has a monitor and is able to eat to raise his blood sugar. I provided the patient explicit return precautions. <Jan Vicente MD - Last Filed: 07/11/25 00:45> Vital Signs: 07/08/25 22:26 07/09/25 00:01 07/09/25 00:26 Temperature 98.1 F 98.0 F Temperature Source Oral Oral Pulse Rate 59 L 67 Pulse Rate [Radial] 68 Respiratory Rate 16 15 Blood Pressure 189/126 H 158/98 H Blood Pressure [Right Arm] 155/102 H Blood Pressure Mean [Right Arm] 119 Blood Pressure Source Automatic Cuff Blood Pressure Position [Right Arm] Sitting 02 Sat by Pulse Oximetry 95 98 Oxygen Delivery Method Room Air Room Air Lab Data Lab Results 07/08/25 22:24: WBC 8.4, RBC 4.89, Hgb 15.2, Hct 44.4, MCV 90.8, MCH 31.1, MCHC 34.2, RDW 12.1, Plt Count 269, MPV 11.2 H, Neut % (Auto) 52.0, Lymph % (Auto) 32.1, [place] % (Auto) 10.7 H, Eos % (Auto) 3.8, Baso % (Auto) 1.0, Neut # (Auto) 4.4, Lymph # (Auto) 2.7, [place] # (Auto) 0.9, Eos # (Auto) 0.3, Baso # (Auto) 0.1, Sodium 140, Potassium 3.6, Chloride 99, Carbon Dioxide 29, Anion Gap 15.6 H, BUN 9, Creatinine 0.70, Estimated Creat Clear 192, Estimated GFR 123, Est GFR ( Amer) 148, Glucose 90, Calcium 9.6, Total Bilirubin 0.5, AST 37, ALT 37, Alkaline Phosphatase 69, Total Protein 7.7, Albumin 4.8, Globulin 2.9, Albumin/Globulin Ratio 1.7, HCV Ab TONIA w/Rflx PCR Qn Negative, HIV Ag/Ab Combo Qual Negative 07/08/25 23:01: SARS-CoV-2 (PCR) Not detected, Influenza Type A (PCR) Not detected, Influenza Type B (PCR) Not detected, RSV (PCR) Not detected, Rhinovirus (PCR) Not detected Orders (Tests/Meds): ED MEDICATIONS Discontinued Medications Generic Name Dose Route Start Last Admin Trade Name Freq PRN Reason Stop Dose Admin Acetaminophen 1,000 mg 07/08/25 22:45 07/08/25 22:59 Acetaminophen 500mg Tab PO 07/08/25 22:46 1,000 mg ONCE ONE Administration Sodium Chloride 1,000 mls @ 999 mls/hr 07/08/25 22:45 07/09/25 00:28 Sod Chlor 0.9% 1000ml Bag IV 07/08/25 23:45 Infused .Q1H1M ONE Infusion Ketorolac Tromethamine 30 mg 07/08/25 22:45 07/08/25 22:59 Ketorolac 30mg/Ml Vial IV 07/08/25 22:46 30 mg ONCE ONE Administration ORDERS Category Date Time Status CT head/brain wo con Stat Cat Scan 07/08/25 22:45 Completed CBC w/Auto Diff [Complete Blood Count Auto Diff] Stat Lab 07/08/25 22:24 Completed CMP [Comprehensive Metabolic Panel] Stat Lab 07/08/25 22:24 Completed HIV Combo Stat Lab 07/08/25 22:24 Completed Hepatitis C Ab Qual. W/ RFX Stat Lab 07/08/25 22:24 Completed Mini Respiratory Panel Stat Lab 07/08/25 23:01 Completed Medical Decision Narrative: Cinthia OLSON: I assumed care of the patient at the time of handoff from the prior provider. On reassessment, patient is asymptomatic. His Dexcom reads 64. A fingerstick from our machine reads mid 84. His chemistry from several hours ago showed a blood sugar of 90. There may be some component of Dexcom malfunction, however, I do think that he is truly experiencing hypoglycemia intermittently. I discussed with him that there are additional tests that should be run to potentially diagnose an insulinoma or other endocrine pathology. He reports that he would prefer not to be admitted to the hospital at this time, he has a follow-up appointment on Friday, less than a week, to further evaluate this. He reports that he can usually tell when he is feeling bad, and the alarm on the Dexcom arouses him when it beeps. He also reports that he can see his blood sugar improve after he eats. Given this, though I would prefer to admit him for symptomatic hypoglycemia and further workup, I think he could realistically be treated on an outpatient basis given he is reliable and has a monitor and is able to eat to raise his blood sugar. I provided the patient explicit return precautions. Critical Care <María Alcantar, DO - Last Filed: 07/11/25 01:22> Critical Care Time Critical Care Time: No
--- NOTE | 2025-07-08 22:45 | CT_ITS ---
PROCEDURE INFORMATION: Exam: CT Head Without Contrast Exam date and time: 07/08/2025 10:58 PM Age: 44 years old Clinical indication: Other: Headache TECHNIQUE: Imaging protocol: Computed tomography of the head without contrast. Radiation optimization: All CT scans at this facility use at least one of these dose optimization techniques: automated exposure control; mA and/or kV adjustment per patient size (includes targeted exams where dose is matched to clinical indication); or iterative reconstruction. COMPARISON: No relevant prior studies available. FINDINGS: Brain: Normal. No hemorrhage. Unremarkable white matter. No mass effect. Cerebral ventricles: No ventriculomegaly. Paranasal sinuses: Visualized sinuses are unremarkable. No fluid levels. Mastoid air cells: Visualized mastoid air cells are well aerated. Orbital cavities: The orbital contents are symmetric and normal. Bones: Unremarkable. No acute fracture. Soft tissues: Unremarkable. IMPRESSION: No acute intracranial abnormality.
[2025-07-08 22:53] LABS: Hematocrit 44.4 % (42.0-52.0); Hemoglobin 15.2 g/dL (14.1-18.0); Immature Granulocytes % 0.4 %; Mean Corpuscular HGB Conc 34.2 g/dL (31.8-35.4); Mean Corpuscular Hemoglobin 31.1 pg (27.0-31.2); Mean Corpuscular Volume 90.8 fl (80-94); Nucleated Red Blood Cells % 0 %; Platelet Count 269 K/mm3 (142-424); Red Blood Count 4.89 M/mm3 (4.60-6.20); Red Cell Distribution Width-SD 40.3 fL; White Blood Count 8.4 K/mm3 (4.8-10.8)
--- NOTE | 2025-07-08 22:58 | PC.NURSE ---
pt returns from x-ray
[2025-07-08 22:59] LABS: Alanine Aminotransferase 37 U/L (12-78); Albumin Level 4.8 g/dl (3.5-5.0); Albumin/Globulin Ratio 1.7 (1.1-1.8); Alkaline Phosphatase 69 U/L (38-126); Anion Gap 15.6 mEq/L (5-15); Aspartate Amino Transferase 37 U/L (17-59); Bilirubin,Total 0.5 mg/dl (0.2-1.3); Blood Urea Nitrogen 9 mg/dl (9-20); Calcium 9.6 mg/dl (8.4-10.2); Carbon Dioxide 29 mmol/L (22.0-30.0); Chloride 99 mmol/L (98-107); Creatinine Clearance Estimated 192 mL/min (50-200); Creatinine,Serum 0.70 mg/dl (0.66-1.25); Estimated Glomerular Filt Rate 123 ml/min (>60); GFR (African American) 148 ML/MIN (>60); Globulin 2.9 g/dL (1.3-3.2); Glucose 90 mg/dl (74-100); Potassium 3.6 mmoL/L (3.5-5.1); Sodium 140 mmol/L (136-145); Total Protein,Serum 7.7 g/dl (6.3-8.2)
[2025-07-08] MEDS: ACETAMINOPHEN 500MG TAB 1000 MG PO (22:59)
[2025-07-08] MEDS: KETOROLAC 30MG/ML VIAL 30 MG IV (22:59)
[2025-07-08] MEDS: 0.9 % SODIUM CHLORIDE 1000ML 1,000 ML 999 ML IV (22:59)
[2025-07-08 23:09] LABS: Coronavirus 19, PCR Not Detected (NotDetected); Influenza A, PCR Not Detected (NotDetected); Influenza B, PCR Not Detected (NotDetected)
[2025-07-08 23:57] LABS: Hepatitis C Ab Qual. W/ RFX NEGATIVE (Negative)
[2025-07-09 00:01] VITALS: BP 189/126; PULSE 59; O2SAT 98
[2025-07-09 00:26] VITALS: BP 158/98; PULSE 67; RESP 15; TEMP 36.7; O2SAT 99
== END 2025-07-09 00:29 | disposition home or self-care (01) ==
PROVIDERS: Emergency Provider Student in an Organized Health Care Education/Training Program; PCP Nurse Practitioner Family
DX: E16.2 Hypoglycemia, unspecified (principal)
CPT/HCPCS: 70450; 80053; 85025; 86803; 87389; 87631; 96361; 96374; 99284; J1885; J7030

== ENCOUNTER 2025-07-18 07:51 | Inpatient (IN) | payer BC, SELFPAY ==
--- OUTSIDE RECORDS SUMMARY | 2025-07-18 08:23 | XMS_ITS | Clinical Summary ---
Author Organization [employer] ([place], [place], [place], [place]) Address [address] [place] [address] Care Team Providers Care Heating Repair Technician Name Role Phone Kari Pleitez APRN Primary Care Provider + [phone] Allergies No known active allergies Medications rosuvastatin (CRESTOR) 20 MG tablet Take 1 tablet (20 mg total) by mouth nightly. 30 tablet 02/27/2023 Active aspirin 81 MG EC tablet daily. Active hydroCHLOROthiaz rosana (HYDRODIURIL) 25 MG tablet daily. Active Active Problems Problem Noted Date Diagnosed Date TIA (transient ischemic attack) 02/27/2023 Encephalopathy acute 02/26/2023 Social History Tobacco Use Types Packs/Day Years Used Date Smoking Tobacco: Some Days Cigarettes Smokeless Tobacco: Current Tobacco Cessation:Ready to Q uit: No; Counseling Given: No Alcohol Use Standard Drinks/Week Comments Not Currently 0 (1 standard drink = 0.6 oz pur e alcohol) Family and Community Support Answer Asa e Recorded Help with Day to Day Activities Not on file 10/24/2023 Feeling Lonely or Isolated Not on file 10/24 Educational Attainment Answer Date Tariq rded Speak language other than Welsh at home Not on file 10/24/2023 Want help with school or training Not on file 10/24/2023 Substance Use Answer Date Recorded Used prescription meds for non-medical reasons N ot on file 10/24/2023 Used illegal drugs past 12 months Not on file 10/24/2023 Sex and Gender Information Value Date Recorded Sex Assigned at Not on file Legal Sex Male 2:04 PM CDT Gender Identity Not on file Sexual Orientation Not on file Last Filed Vital Signs Vital Sign Reading Time Taken Comments Blood Pressure 122/84 05/15/2023 1:30 PM EDT Pulse 73 05/15/2023 1:30 PM EDT Temperature 36.6 C (97.9 F) 02/27/2023 9:54 AM EDT Respiratory Rate 18 02/27/2023 9:54 AM EDT Oxygen Saturation 93% 02/27/2023 9:54 AM EDT Inhaled Oxygen Concentration - - Weight 96.6 kg (213 lb) 05/15/2023 1:30 PM EDT Height 185.4 cm (6' 1 ) 05/15/2023 1:30 PM EDT Body Mass Index 28.1 05/15/2023 1:30 PM EDT Plan of Treatment Health Maintenance Due Date Last Done Comments Depression Screening (12+) 1992 HIV Screening 1995 Hepatitis C Screening 1998 Pneumococcal Vaccine: 0-49 Y ears (1 of 2 - PCV) 1999 DTAP/TDAP/TD VACCINES (2 - Td or Tdap) 05/11/2006 Tobacco Cessation Counseling and Screening (12+) 02/27/2024 02/26/2023 COVID-19 VACCINE (3 - 2024- season) 2025, 07/06/2021 Influenza Vaccine (#1) 2025 Lipid Panel 02/27/2026 02/27/2023 Procedures Procedure Name Priority Date/Time Associated Diagnosis Comments LIPID PANEL Routine 02/27/2023 6:38 AM EDT from Last 3 Months or Most Recently Relevant to Health Maintenance Results * (ABNORMAL) Lipid panel (02/27/2023 6:38 AM EDT) Triglycerides 247 0 - 249 mg/dL 02/27/2023 7:36 AM EDT [facility] Cholesterol 147 0 - 199 mg/dL 02/27/2023 7:36 AM EDT [facility] Comment: 200 to 239 mg/dL = Moderate (borderline) >239 mg/dL = High HDL Cholesterol 27(L) >=40 mg/dL 02/27/2023 7:36 AM EDT [facility] Comment: >=60 mg/dL = Desirable <40 mg/dL = Increased Risk All other components are listed individually or are calculations VLDL Cholesterol 49.4(H) 5 - 40 mg/dL 02/27/2023 7:36 AM EDT [facility] Cholesterol/HDL ratio 5.4(H) 0.0 - 3.2 02/27/2023 7:36 AM EDT [facility] LDl/HDL Ratio 3 0 - 4 02/27/2023 7:36 AM EDT [facility] RISK COMP 5 02/27/2023 7:36 AM EDT [facility] LDL Cholesterol, Calculated 71 0 - 99 mg/dL 02/27/2023 7:36 AM EDT [facility] Blood Venipuncture / Unknown 02/27/2023 6:38 AM EDT 02/27/2023 7:09 AM EDT us Jean Conde MD LAB BLOOD ORDERABLES Final Resu lt [facility] [address] [place], [place] [address] [phone] from Last 3 Months or Most Recently Relevant to Health Maintenance Insurance BLUE CROSS[employer]BLUE [employer]IELD Advance Directives For more information, please contact: [phone] * Full Code (Latest Code Status on File) Date Activated Date Inactivated Comments 02/26/2023 9:54 AM 02/27/2023 4:56 PM Care Teams Heating Repair Technician Relationship Specialty Start Date End Date Kari Pleitez, COLLAR STAY FUSER TENDER [address] [place] [id number] PCP - General Family Medicine 02/25/23
--- OUTSIDE RECORDS SUMMARY | 2025-07-18 08:24 | XMS_ITS | Clinical Summary ---
[facility] Address [address] [place] [address] Care Team Providers Care Health Insurance Agent Name Role Phone Maik Kari DUGLAS Primary Care Provider [phone] Social History Tobacco Use Types Packs/Day Years [...] patient's age to complete this topic [place] [place] [address] PPO Care Teams Health Insurance Agent Relationship Specialty Start Date End Date Kari Pleitez APRN [address] [place] [address] [id number] PCP - General Nurse Practitioner 03/17/23
--- OUTSIDE RECORDS SUMMARY | 2025-07-18 08:24 | XMS_ITS | Referral Summary ---
Author Organization [email or web address] ([place], [place], [place], [place]) Address [address] [place] [address] Care Team Providers Care Assistant Counsel Name Role Phone Kari Pleitez APRN Primary Care Provider + [phone] Allergies No known active allergies Medications rosuvastatin [...] Date Tariq rded Speak language other than Romanian at home Not on file 10/24/2023 Want [...] 05/15/2023 1:30 PM EDT Plan of Treatment Not on file Procedures Procedure Name Priority Date/Time Associated Diagnosis Comments LIPID PANEL Routine 02/27/2023 6:38 AM EDT from Last 3 Months or Most Recently Relevant to Health Maintenance Results * (ABNORMAL) Lipid panel (02/27/2023 6:38 AM EDT) Triglycerides 247 0 - 249 mg/dL 02/27/2023 7:36 AM EDT [facility] Cholesterol 147 0 - 199 mg/dL 02/27/2023 7:36 AM EDT [facility] Comment: 200 to 239 mg/dL = Moderate (borderline) >239 mg/dL = High HDL Cholesterol 27(L) >=40 mg/dL 02/27/2023 7:36 AM EDT [facility] Comment: >=60 mg/dL = Desirable <40 mg/dL = Increased Risk All other components are listed individually or are calculations VLDL Cholesterol 49.4(H) 5 - 40 mg/dL 02/27/2023 7:36 AM EDT [facility] Cholesterol/HDL ratio 5.4(H) 0.0 - 3.2 02/27/2023 7:36 AM EDT [facility] LDl/HDL Ratio 3 0 - 4 02/27/2023 7:36 AM EDT [facility] RISK COMP 5 02/27/2023 7:36 AM EDT [facility] LDL Cholesterol, Calculated 71 0 - 99 mg/dL 02/27/2023 7:36 AM EDT [facility] Blood Venipuncture / Unknown 02/27/2023 6:38 AM EDT 02/27/2023 7:09 AM EDT Jean Conde MD LAB BLOOD ORDERABLES Final Resu lt [facility] [address] [place] [address], [facility] [phone] from Last 3 Months or Most Recently Relevant to Health Maintenance Insurance [employer] CROSS/BLUE SHIELD Advance Directives For more information, please contact: [phone] * Full Code (Latest Code Status on File) Date Activated Date Inactivated Comments 02/26/2023 9:54 AM 02/27/2023 4:56 PM Care Teams Assistant Counsel Relationship Specialty Start Date End Date Kari Pleitez, TIRE FINISHER [address] [place] [phone] PCP - General Family Medicine 02/25/23
[2025-07-18 08:30] VITALS: BP 139/70; PULSE 67; RESP 16; TEMP 36.5; O2SAT 98; BMI 27.9
--- NOTE | 2025-07-18 08:32 | HMH.PHAINT1 ---
Pharmacy Intervention Comments: MEDICATION RECONCILIATION COMPLETED ON PATIENT USING EXTERNAL FILL HISTORY FROM PHARMACY. -KATHIA TRAN, ITZELD
--- NOTE | 2025-07-18 08:53 | HMH.ENDO.CON ---
History of Present Illness *History of present illness: Mr. Paige is a 44yr old, male with a PMH of HTN and HLD currently admitted for a 72 hr supervised fast for hypoglycemia. Patient was evaluated last week in the clinic and was found to have symptomatic hypoglycemic events which resolve with food. Patient mentioned that he has been fasting since 5pm (friday evening). He overall had 2 more episodes of hypoglycemia since he was last seen in the clinic with BGs in 50s and 60s. Last 2 episodes occured pre-lunch with breakfast >6hrs before. He currently has no compliants. [facility] Disclaimer: The information contained in this section may have been updated after the patient was seen, as this information can be updated by other users. Social History Smoking Status: Never smoker alcohol intake: never substance use type: denies use current occupational status: employed Travel in the last 8 weeks?: None household members: spouse housing: house current occupation: 3[employer] current occupational exposures/hazards: No caffeine: No Have you lived/traveled outside US in past 30 days?: No Contact w/someone who lives/traveled outside US past 30 days?: No Exposure to someone with infectious disease in past 14 days?: No Do you have a fever (greater than 100.4 F or 38 C)?: No Have you tested positive for COVID-19?: No Exposed to someone with COVID-19 in past 14 days?: No Do you have a sore throat?: No Do you have a cough?: No Do you have any weakness?: No Do you have any diarrhea?: No Are you experiencing any unusual bleeding?: No Do you have any muscle aches/pain?: No Do you have any abdominal pain?: No Are you experiencing loss of taste or smell?: No Review of Systems Constitutional Constitutional: Denies excessive sweating, Denies fatigue and Denies weakness ENT Ears, Nose, Mouth, and Throat: Denies vertigo *Cardiovascular Cardiovascular: Denies chest pain and Denies dyspnea *Respiratory Respiratory: Denies dyspnea *Gastrointestinal Gastrointestinal: Denies abdominal pain and Denies change in bowel habits *Neurologic Neurologic: Denies tremor(s), Denies vertigo and Denies weakness Endocrine Endocrine: Reports as per HPI, Denies excessive sweating, Denies fatigue and Reports heat intolerance Exam Data for Last 24 hours Vital signs and Labs for Last 24 Hours: Temp Pulse Resp BP Pulse Ox O2 Del Method 97.7 F 67 16 139/70 98 Room Air 07/18/25 08:30 07/18/25 08:30 07/18/25 08:30 07/18/25 08:30 07/18/25 08:30 07/18/25 08:30 I & O for Last 24 hours: Intake & Output 07/15/25 07/16/25 07/17/25 07/18/25 23:59 23:59 23:59 23:59 Weight 212 lb Constitutional Constitutional: no acute distress *Routine HEENT Exam Head: Present normocephalic Eye: Present EOMI and PERRL ENT: Present mucous membranes moist *Routine Neck Exam Neck: Present supple; Absent lymphadenopathy *Routine Respiratory Exam Respiratory: Present CTA bilaterally *Routine Cardiovascular Exam Cardiovascular: Present RRR *Routine Abdominal Exam Abdominal: Present soft and normoactive bowel sounds; Absent tenderness *Routine Extremities Exam Extremities: Absent cyanosis, clubbing or edema *Routine Skin Exam Skin: Present warm; Absent rash *Routine Neurological Exam Neurological: Present alert and oriented X3 Meds Home Medications and Allergies Home Medications ?Medication ?Instructions ?Recorded ?Confirmed ?Type aspirin 81 mg tablet 81 mg PO DAILY 07/13/25 07/18/25 History lisinopril 10 1 tab PO DAILY 07/13/25 07/18/25 History mg-hydrochlorothiazide 12.5 mg tablet rosuvastatin 20 mg tablet 20 mg PO DAILY 07/13/25 07/18/25 History glucose 3.75 gram chewable tablet 3.75 g PO NEEDED PRN 07/18/25 07/18/25 History Hypoglycemia New Prescriptions to Start Prescriptions: Allergies Allergy/AdvReac Type Severity Reaction Status Date / Time No Known Allergies Allergy Verified 07/13/25 10:26 Assessment and Plan *Assessment and plan (1) Hypoglycemia: Status: Acute Category: Medical Code(s): E16.2 - Hypoglycemia, unspecified Plan - Check insulin, pro-insulin, c-peptide, BHB, sulfonylurea drug screen and BMP - Check random cortisol levels (with above labs). 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 AM cortisol is probably not ideal in current situation as his cortisol circadian rhythm is adapting to the new change of his routine. - Collect above blood samples when BG<55. - Check BG when patient has symptoms, every 2hrs and hrly once BG<70 - IM glucagon 1mg should be admistered once the samples are collected. - Check FSBG 10, min, 20 min and 30 mins post glucagon - Patient should be provided with meals after the hypoglycemic event. - Patient can be discharged once the following endpoints are met: 1. Patient has symptomatic hypoglycemic event with BG<55 and blood samples are collected. 2. 72hrs have elapsed 3. Patient has hypoglycemic event without symptoms and with a BG<45 4. Lower BG target of <60, if patient does not have any significant hypoglycemic episode by 72hrs. Plan follow up outpatient in 2 weeks after the discharge. Endocrinology will continue to follow.
--- NOTE | 2025-07-18 08:57 | EXP.HP ---
History of Present Illness *Admission Date: 07/18/25 *Reason for visit:: Low blood sugar check *History of present illness: Mr. Paige is a 44-year-old male who was directly admitted to the hospital for a evaluation of his hypoglycemia. He has a primary medical history of hypertension, hyperlipidemia, and hypoglycemia. Mr. Paige is being followed by Dr. Morris for recurrent episodes of hypoglycemia. He was evaluated last week in the endocrinology clinic and was found to had symptomatic hypoglycemic events which resolved with food. Patient states blood glucose has been in the 50s to 60s, currently he feels well. No signs of hypoglycemia, denies shortness of breath, abdominal pain, weakness, fever, chills, cough, congestion, nausea, vomiting, diarrhea. [facility] Disclaimer: The information contained in this section may have been updated after the patient was seen, as this information can be updated by other users. Social History Smoking Status: Never smoker alcohol intake: never substance use type: denies use current occupational status: employed Travel in the last 8 weeks?: None household members: spouse housing: house current occupation: [employer] current occupational exposures/hazards: No caffeine: No Have you lived/traveled outside US in past 30 days?: No Contact w/someone who lives/traveled outside US past 30 days?: No Exposure to someone with infectious disease in past 14 days?: No Do you have a fever (greater than 100.4 F or 38 C)?: No Have you tested positive for COVID-19?: No Exposed to someone with COVID-19 in past 14 days?: No Do you have a sore throat?: No Do you have a cough?: No Do you have any weakness?: No Do you have any diarrhea?: No Are you experiencing any unusual bleeding?: No Do you have any muscle aches/pain?: No Do you have any abdominal pain?: No Are you experiencing loss of taste or smell?: No Other Medical History Have you received the Flu Vaccine for this season: No Have you received the Pneumonia Vaccine: Yes Review of Systems Review of Systems Review of systems:: pertinent systems reviewed and negative unless documented below Meds Home Medications and Allergies Home Medications ?Medication ?Instructions ?Recorded ?Confirmed ?Type aspirin 81 mg tablet 81 mg PO HS 07/13/25 07/18/25 History lisinopril 10 1 tab PO HS 07/13/25 07/18/25 History mg-hydrochlorothiazide 12.5 mg tablet rosuvastatin 20 mg tablet 20 mg PO HS 07/13/25 07/18/25 History glucose 3.75 gram chewable tablet 3.75 g PO NEEDED PRN 07/18/25 07/18/25 History Hypoglycemia New Prescriptions to Start Prescriptions: Allergies Allergy/AdvReac Type Severity Reaction Status Date / Time No Known Allergies Allergy Verified 07/13/25 10:26 Exam Data for Last 24 hours Vital signs and Labs for Last 24 Hours: Temp Pulse Resp BP Pulse Ox O2 Del Method 97.7 F 67 16 139/70 98 Room Air 07/18/25 08:30 07/18/25 08:30 07/18/25 08:30 07/18/25 08:30 07/18/25 08:30 07/18/25 08:53 I & O for Last 24 hours: Intake & Output 07/15/25 07/16/25 07/17/25 07/18/25 23:59 23:59 23:59 23:59 Weight 96.162 kg Constitutional Constitutional: no acute distress, average body habitus and cooperative *Routine HEENT Exam Head: Present normocephalic Eye: Present EOMI ENT: Present mucous membranes moist *Routine Neck Exam Neck: Present supple *Routine Respiratory Exam Respiratory: Present CTA bilaterally, able to speak in complete sentences and symmetric chest movement; Absent wheezes or crackles *Routine Cardiovascular Exam Cardiovascular: Present RRR, Normal S1 and Normal S2; Absent murmur *Routine Abdominal Exam Abdominal: Present soft and normoactive bowel sounds; Absent tenderness or distended *Routine Rectal Exam Rectal:: deferred *Routine Genitalia Exam Genitalia:: deferred *Routine Extremities Exam Extremities: Present pulses intact and normal capillary refill; Absent edema *Routine Skin Exam Skin: Present intact and dry; Absent erythema or rash *Routine Neurological Exam Neurological: Present alert, oriented X3, vision grossly intact, hearing grossly intact and normal speech Routine Psychiatric Exam Psychiatric: Present normal affect Assessment and Plan *Assessment and plan (1) Hypoglycemia: Status: Acute Category: Medical Code(s): E16.2 - Hypoglycemia, unspecified (2) Hypertension: Status: Acute Category: Medical Code(s): I10 - Essential (primary) hypertension (3) Hyperlipidemia: Status: Acute Category: Medical Code(s): E78.5 - Hyperlipidemia, unspecified Plan Mr. Paige is a 44-year-old male who was directly admitted to the hospital for a evaluation of his hypoglycemia. He has a primary medical history of hypertension, hyperlipidemia, and hypoglycemia. Mr. Paige is being followed by Dr. oMrris for recurrent episodes of hypoglycemia. He was evaluated last week in the endocrinology clinic and was found to have had symptomatic hypoglycemic events which resolved with food. Patient states blood glucose has been in the 50s to 60s, currently he feels well. No signs of hypoglycemia, denies shortness of breath, abdominal pain, weakness, fever, chills, cough, congestion, nausea, vomiting, diarrhea. Hospital medicine agreed to admit the patient for monitoring and care. #Hypoglycemia ? We will follow the 72-hour supervised fast for hypoglycemia evaluation. Plans to assess blood glucose every 2 hours throughout the fast. Every 1 hour if blood glucose drops less than 70. Patient will receive glucagon IM if blood glucose becomes less than 55 and/or hypoglycemic symptoms occur: Sweating, jitteriness, nausea, dizziness, confusion. ? Patient states he has been n.p.o. with the exception of water since 5 PM yesterday evening. Will continue to give the patient water. ? If patient does have episode of hypoglycemia we will draw the following labs: Serum insulin, pro?insulin, C?peptide, beta?hydroxybutyrate, BMP, sulfonylurea and oral hypoglycemic agent screen. #Hypertension: Resume lisinopril 10 mg/HCTZ 12.5 mg at bedtime. #Hyperlipidemia: Resume rosuvastatin 20 mg tablet at bedtime and aspirin 81 mg at bedtime. Full code N.p.o. (water okay) Ambulate as tolerated VTE?IPC's
[2025-07-18 11:32] LABS: POC Glucose,Bedside 82 gm/dL (70-110)
[2025-07-18 13:15] LABS: POC Glucose,Bedside 78 gm/dL (70-110)
[2025-07-18 15:13] LABS: POC Glucose,Bedside 69 gm/dL (70-110)
[2025-07-18 16:00] VITALS: BP 137/57; PULSE 54; RESP 18; TEMP 36.5; O2SAT 98
[2025-07-18 16:10] LABS: POC Glucose,Bedside 71 gm/dL (70-110)
--- NOTE | 2025-07-18 17:15 | PC.NURSE ---
PATIENT'S FSBS TODAY HAS BEEN FOLLOWS: [phone] 1700- GLUCOMETER READS TOO LOW TO READ. AT THIS TIME, CONTACTED LAB FOR STAT GLUCOSE AND OTHER LABS TO BE DRAWN PER PROTOCOL. PATIENT STATES AT THIS TIME THAT HE IS FEELING WORSE THAN NORMAL- WILL NOT WAIT FOR STAT GLUCOSE TO RESULT BUT WILL PROCEED WITH ADMINISTRATION OF GLUCAGON. GLUCAGON ADMINISTRATION TIME: 1722 10 MINUTE POST ADMIN: 92 20 MINUTE POST ADMIN: 101 30 MINUTE POST ADMIN: 108 PATIENT HAS BEEN FED SUPPER AND MULTIPLE SNACKS. WILL KEEP PATIENT FOR 2 HOURS LONGER, AND CHECK SUGAR AT EACH HOUR. PATIENT IS STABLE AT THIS TIME, NO SYMPTOMS OF HYPOGLYCEMIA.
[2025-07-18] MEDS: GLUCAGON 1 MG/ML VIAL IM (17:21)
[2025-07-18 18:04] LABS: Anion Gap 15.7 mEq/L (5-15); Blood Urea Nitrogen 9 mg/dl (9-20); Calcium 9.4 mg/dl (8.4-10.2); Carbon Dioxide 30 mmol/L (22.0-30.0); Chloride 98 mmol/L (98-107); Creatinine Clearance Estimated 160 mL/min (50-200); Creatinine,Serum 0.80 mg/dl (0.66-1.25); Estimated Glomerular Filt Rate 105 ml/min (>60); GFR (African American) 127 ML/MIN (>60); Glucose 76 mg/dl (74-100); Potassium 3.7 mmoL/L (3.5-5.1); Sodium 140 mmol/L (136-145)
[2025-07-18 20:15] VITALS: PULSE 70
[2025-07-18 20:36] LABS: POC Glucose,Bedside 92 gm/dL (70-110)
[2025-07-18 20:36] LABS: POC Glucose,Bedside 155 gm/dL (70-110)
[2025-07-18 20:36] LABS: POC Glucose,Bedside 108 gm/dL (70-110)
[2025-07-18 20:36] LABS: POC Glucose,Bedside 76 gm/dL (70-110)
[2025-07-18 20:36] LABS: POC Glucose,Bedside 101 gm/dL (70-110)
[2025-07-18] MEDS: LISINOPRIL/HCTZ 10-12.5MG TABLET 1 EACH PO (21:37)
[2025-07-18] MEDS: ASPIRIN EC 81MG TABLET 81 MG PO (21:37)
[2025-07-18] MEDS: ATORVASTATIN 20MG TABLET 20 MG PO (21:37)
[2025-07-18 22:43] LABS: POC Glucose,Bedside 101 gm/dL (70-110)
[2025-07-19] VITALS: BP 125/58; PULSE 66; PULSE 69; RESP 12; TEMP 36.8; O2SAT 95
[2025-07-19 00:29] LABS: POC Glucose,Bedside 122 gm/dL (70-110)
[2025-07-19 04:00] VITALS: PULSE 60; BMI 28.2
[2025-07-19 05:04] LABS: POC Glucose,Bedside 113 gm/dL (70-110)
[2025-07-19 07:43] VITALS: BP 114/53; PULSE 72; RESP 18; TEMP 36.3; O2SAT 96
[2025-07-19 08:00] VITALS: PULSE 70
[2025-07-19 08:17] LABS: POC Glucose,Bedside 128 gm/dL (70-110)
--- NOTE | 2025-07-19 09:35 | P.DS_ITS ---
General Admission date:: 07/18/25 Discharge date: 07/19/25 HPI HPI HPI: Mr. Paige is a 44-year-old male who was directly admitted to the hospital for a evaluation of his hypoglycemia. He has a primary medical history of hypertension, hyperlipidemia, and hypoglycemia. Mr. Paige is being followed by Dr. Morris for recurrent episodes of hypoglycemia. He was evaluated last week in the endocrinology clinic and was found to had symptomatic hypoglycemic events which resolved with food. Patient states blood glucose has been in the 50s to 60s, currently he feels well. No signs of hypoglycemia, denies shortness of breath, abdominal pain, weakness, fever, chills, cough, congestion, nausea, vomiting, diarrhea. Hospital Course Hospital Course Hospital Course: Mr. Paige is a 44-year-old male who was directly admitted to the hospital for a evaluation of his hypoglycemia. He has a primary medical history of hypertension, hyperlipidemia, and hypoglycemia. Mr. aPige is being followed by Dr. Morris for recurrent episodes of hypoglycemia. He was evaluated last week in the endocrinology clinic and was found to have had symptomatic hypoglycemic events which resolved with food. Patient states blood glucose has been in the 50s to 60s, currently he feels well. No signs of hypoglycemia, denies shortness of breath, abdominal pain, weakness, fever, chills, cough, congestion, nausea, vomiting, diarrhea. Hospital medicine agreed to admit the patient for monitoring and care. #Hypoglycemia ? Patient was admitted and we followed the 72-hour supervised fast for hypoglycemia evaluation. Assessment of blood glucose every 2 hours throughout the fast. Every 1 hour if blood glucose drops less than 70. Patient will receive glucagon IM if blood glucose becomes less than 55 and/or hypoglycemic symptoms occur: Sweating, jitteriness, nausea, dizziness, confusion. ? Patient began feeling like his blood sugar was low around 5 PM yesterday evening, jittery, nauseous, dizzy. Blood glucose was checked on the bedside Accu-Chek which read low (unable to obtain actual blood glucose reading). [facility] and he was given the IM glucagon. Patient then felt better and was given a p.o. diet which she tolerated without issue. Lab work resulted and showed a glucose of 80. This was obtained prior to any glucagon administration or p.o. intake. Patient was observed overnight and had no more episodes of hypoglycemia. Labs drawn were sent out for evaluation. After discussion with Dr. Morris, she feels the episodes may be of cardiac origin. Patient's heart rate during the episode yesterday was 50. Echo ordered for further evaluation. Patient to follow with outpatient cardiology for further cardiac etiology of symptoms. Patient will also follow with endocrinology in 2 weeks. ? Plans for a cardiac event monitor for 2 weeks, insurance not covered. Patient will continue to follow with outpatient cardiology for further evaluation and possible event monitor if deemed necessary. ? Dr. Argueta also felt it necessary to obtain blood cultures for possible infectious etiology. Will continue to follow after discharge. #Hypertension: Resume lisinopril 10 mg/HCTZ 12.5 mg at bedtime. #Hyperlipidemia: Resume rosuvastatin 20 mg tablet at bedtime and aspirin 81 mg at bedtime. Total time spent on discharge 32 minutes in counseling, documentation, chart review, and direct care with patient. Exam Data for Last 24 hours Vital signs and Labs for Last 24 Hours: Temp Pulse Resp BP Pulse Ox O2 Del Method 97.4 F L 72 18 114/53 L 96 Room Air 07/19/25 07:43 07/19/25 07:43 07/19/25 07:43 07/19/25 07:43 07/19/25 07:43 07/19/25 07:43 Laboratory Results - last 24 hr 07/18/25 08:26: Sodium 140, Potassium 3.7, Chloride 98, Carbon Dioxide 30, Anion Gap 15.7 H, BUN 9, Creatinine 0.80, Estimated Creat Clear 160, Estimated GFR 105, Est GFR ( Amer) 127, Glucose 76, Calcium 9.4 07/18/25 11:06: POC Glucose 82 07/18/25 13:08: POC Glucose 78 07/18/25 15:03: POC Glucose 69 L 07/18/25 16:01: POC Glucose 71 07/18/25 17:22: Random Glucose 80 07/18/25 17:34: POC Glucose 92 07/18/25 17:46: POC Glucose 101 07/18/25 17:55: POC Glucose 108 07/18/25 18:49: POC Glucose 155 H 07/18/25 20:05: POC Glucose 76 07/18/25 22:24: POC Glucose 101 07/19/25 00:21: POC Glucose 122 H 07/19/25 04:57: POC Glucose 113 H 07/19/25 08:09: POC Glucose 128 H I & O for Last 24 hours: Intake & Output 07/16/25 07/17/25 07/18/25 07/19/25 23:59 23:59 23:59 23:59 Intake Total 240 / 740 980 / 980 Output Total 0 / 0 0 / 0 Balance 240 / 740 980 / 980 Weight 96.162 kg 96.524 kg Constitutional Constitutional: no acute distress, average body habitus and cooperative *Routine HEENT Exam Head: Present normocephalic Eye: Present EOMI and PERRL ENT: Present mucous membranes moist *Routine Neck Exam Neck: Present supple; Absent lymphadenopathy *Routine Respiratory Exam Respiratory: Present CTA bilaterally and symmetric chest movement; Absent wheezes or crackles *Routine Cardiovascular Exam Cardiovascular: Present RRR; Absent murmur *Routine Abdominal Exam Abdominal: Present soft and normoactive bowel sounds; Absent tenderness *Routine Extremities Exam Extremities: Present full ROM and pulses intact; Absent cyanosis, clubbing or edema *Routine Skin Exam Skin: Present intact, dry and warm; Absent erythema or rash *Routine Neurological Exam Neurological: Present alert, oriented X3, vision grossly intact, hearing grossly intact and normal speech Routine Psychiatric Exam Psychiatric: Present normal affect Results Data Completed and Pending Labs on day of discharge: Labs from last 24 hours 07/19/25 07/19/25 07/19/25 08:09 04:57 00:21 Sodium Potassium Chloride Carbon Dioxide Anion Gap BUN Creatinine Estimated Creat Clear Estimated GFR Est GFR ( Amer) Glucose POC Glucose 128 H 113 H 122 H Random Glucose Calcium 07/18/25 07/18/25 07/18/25 22:24 20:05 18:49 Sodium Potassium Chloride Carbon Dioxide Anion Gap BUN Creatinine Estimated Creat Clear Estimated GFR Est GFR ( Amer) Glucose POC Glucose 101 76 155 H Random Glucose Calcium 07/18/25 07/18/25 07/18/25 17:55 17:46 17:34 Sodium Potassium Chloride Carbon Dioxide Anion Gap BUN Creatinine Estimated Creat Clear Estimated GFR Est GFR ( Amer) Glucose POC Glucose 108 101 92 Random Glucose Calcium 07/18/25 07/18/25 07/18/25 17:22 16:01 15:03 Sodium Potassium Chloride Carbon Dioxide Anion Gap BUN Creatinine Estimated Creat Clear Estimated GFR Est GFR ( Amer) Glucose POC Glucose 71 69 L Random Glucose 80 Calcium 07/18/25 07/18/25 07/18/25 13:08 11:06 08:26 Sodium 140 Potassium 3.7 Chloride 98 Carbon Dioxide 30 Anion Gap 15.7 H BUN 9 Creatinine 0.80 Estimated Creat Clear 160 Estimated GFR 105 Est GFR ( Amer) 127 Glucose 76 POC Glucose 78 82 Random Glucose Calcium 9.4 DS: Diagnosis Discharge Diagnosis (1) Hypoglycemia: Status: Acute Code(s): E16.2 - Hypoglycemia, unspecified (2) Hypertension: Status: Acute Code(s): I10 - Essential (primary) hypertension (3) Hyperlipidemia: Status: Acute Code(s): E78.5 - Hyperlipidemia, unspecified (4) Bradycardia: Status: Acute Code(s): R00.1 - Bradycardia, unspecified Meds Home Medications and Allergies Home Medications ?Medication ?Instructions ?Recorded ?Confirmed ?Type aspirin 81 mg tablet 81 mg PO HS 07/13/25 5 History lisinopril 10 1 tab PO HS 07/13/25 5 History mg-hydrochlorothiazide 12.5 mg tablet rosuvastatin 20 mg tablet 20 mg PO HS 07/13/25 5 History glucose 3.75 gram chewable tablet 3.75 g PO NEEDED PRN 07/18/25 07/18/25 History Hypoglycemia New Prescriptions to Start Prescriptions: Allergies Allergy/AdvReac Type Severity Reaction Status Date / Time No Known Allergies Allergy Verified 07/13/25 10:26 Discharge Plan Disposition Patient Disposition: Home, Self-Care Condition: Good Discharge Order Discharge Orders: Discharge Order (Routine); Ordered 07/19/25 Ordered By: Monserrat Bal Follow up Plan Follow up with: Kari Pleitez [Primary Care Provider, Medical] - 07/26/25 4:00 pm Fidel Bal PA [Physician [facility], Cardiology] - 08/02/25 10:30 am Shara Morris MD [Staff Physician, Endocrinology] - 08/02/25 1:00 pm Prescriptions/Medication Reconciliation: Continued rosuvastatin 20 mg tablet 20 mg PO HS Patient Comments: TAKE 1 TABLET BY MOUTH EVERY DAY aspirin 81 mg tablet 81 mg PO HS lisinopril-hydrochlorothiazide 10-12.5 mg tablet 1 tab PO HS Patient Comments: TAKE 1 TABLET BY MOUTH EVERY DAY FOR BLOOD PRESSURE glucose 3.75 gram tablet,chewable 3.75 g PO NEEDED PRN (Reason: Hypoglycemia) Patient Comments: TAKE 1 TABLET BY MOUTH NEEDED FOR hypoglycemia Problem Reconciliation Problems Reviewed?: Yes Patient Discharge Instructions ACTIVITY: Continue current activity DIET: continue same diet Patient Instructions: DI for Hypoglycemia Print Language: Cuban Providers Primary Care Provider: Kari Pleitez Admit Provider: Dimitri Argueta Attending Provider: Dimitri Argueta
--- NOTE | 2025-07-19 09:59 | CA_ITS ---
APPROVED REPORT EXAM: Comprehensive 2D, Doppler, and color-flow Echocardiogram [facility] Coordinator: MARIANGEL Donald, RVS Ht: 6 ft 0 in Wt: 212lbs BSA: 2.18 BP: 139/70 mmHg Indications: Syncope, Hypoglycemia, HTN, HLD Echo Enhancing Agent Indication: Rule Out Septal Defect Agent(s) / Amount(s) Used: Agitated Saline 20 cc 2D Dimensions Left Atrium 3.44 cm M-Mode Dimensions RVDd 3.06 cm (0.9-2.6) LA Diam 3.84 cm (1.9-4.0) LVDd 4.74 cm (3.5-5.7) LVDs 3.20 cm (3.5-5.7) IVSd 1.28 cm (0.6-1.1) PWd 1.18 cm (0.6-1.1) EF (Teich) 60.70% EPSs 0.72 cm FS 32.50% EDV (Teich) 104.40 mL TAPSE 2.09 (<1.7) ESV (Teich) 41.00 mL LV Diastology E Decel Time 363 (160-240 msec) E/A Ratio 1.27 MED A' 12.10 cm/s LAT A' 9.00 cm/s Aortic Valve ROMINA Index 1.45 cm2/m2 AoV Peak Marty. 126.0 (50-130 cm/s) AO Peak GR. 6.30 mmHg AO Mean GR. 3.20 (<5 mmHg) AO VTI 20.5 (18-25 cm) ROMINA (VTI) 3.24 (2.5-4.5 cm2) Mitral Valve MV A Velocity 45.0 (40-130 cm/s) E/A Ratio 1.27 Left Ventricle The left ventricle is normal size. Left ventricular systolic function is normal. The left ventricular ejection fraction is within the normal range. There is increased left ventricular wall thickness. There is normal LV segmental wall motion. The left ventricular diastolic function is normal. LVEF is 55% Right Ventricle The right ventricle is normal size. The right ventricular systolic function is normal. Atria The left atrium size is normal. The right atrium size is normal. There is no color Doppler evidence of interatrial shunt. Agitated saline administration demonstrates no evidence of interatrial shunt. Aortic Valve The aortic valve opens well. There is no hemodynamically significant aortic valvular stenosis. No aortic regurgitation is present. Mitral Valve The mitral valve is normal in structure. No evidence of mitral valve stenosis. Trace mitral regurgitation is present. Tricuspid Valve The tricuspid valve leaflets are thin and pliable. Trace tricuspid regurgitation. There is insufficient TR jet to estimate RVSP. Pulmonic Valve The pulmonary valve is grossly normal in structure. Trace pulmonic valve regurgitation is present. Great Vessels The aortic root is normal in size. IVC is normal in size and collapses >50% with inspiration. Pericardium There is no pericardial effusion. Other Information Study Quality: Fair Conclusion Normal biventricular systolic function. No significant valvular stenosis or regurgitation. Agitated saline administration demonstrates no evidence of interatrial shunt. Electronically signed by : Iva Gant MD 07/19/2025 11:51:07
--- NOTE | 2025-07-19 10:07 | EXP.PN ---
Subjective *Date: 07/19/25 *Time: 10:07 Interval history: Patient was found to be symptomatic yesterday at 5pm along with FSBG reading too low . Plasma glucose collected at that time frame before glucagon was found to be at 80. This makes hypoglycemia unlikely. He also mentioned that yesterday after eating his symptoms did not improve significantly. Patient's at bedside, mentioned that patient had passed out on previous occasions. Noted from chart bradycardic episdoes in the past and HR at 54 when patient had symptoms. Exam Data for Last 24 hours Vital signs and Labs for Last 24 Hours: Temp Pulse Resp BP Pulse Ox O2 Del Method 97.4 F L 72 18 114/53 L 96 Room Air 07/19/25 07:43 07/19/25 07:43 07/19/25 07:43 07/19/25 07:43 07/19/25 07:43 07/19/25 09:00 Laboratory Results - last 24 hr 07/18/25 08:26: Sodium 140, Potassium 3.7, Chloride 98, Carbon Dioxide 30, Anion Gap 15.7 H, BUN 9, Creatinine 0.80, Estimated Creat Clear 160, Estimated GFR 105, Est GFR ( Amer) 127, Glucose 76, Calcium 9.4 07/18/25 11:06: POC Glucose 82 07/18/25 13:08: POC Glucose 78 07/18/25 15:03: POC Glucose 69 L 07/18/25 16:01: POC Glucose 71 07/18/25 17:22: Random Glucose 80 07/18/25 17:34: POC Glucose 92 07/18/25 17:46: POC Glucose 101 07/18/25 17:55: POC Glucose 108 07/18/25 18:49: POC Glucose 155 H 07/18/25 20:05: POC Glucose 76 07/18/25 22:24: POC Glucose 101 07/19/25 00:21: POC Glucose 122 H 07/19/25 04:57: POC Glucose 113 H 07/19/25 08:09: POC Glucose 128 H I & O for Last 24 hours: Intake & Output 07/16/25 07/17/25 07/18/25 07/19/25 23:59 23:59 23:59 23:59 Intake Total 240 / 740 980 / 980 Output Total 0 / 0 0 / 0 Balance 240 / 740 980 / 980 Weight 212 lb 212 lb 12.8 oz Constitutional Constitutional: no acute distress *Routine HEENT Exam Head: Present normocephalic Eye: Present EOMI and PERRL ENT: Present mucous membranes moist *Routine Neck Exam Neck: Present supple; Absent lymphadenopathy *Routine Respiratory Exam Respiratory: Present CTA bilaterally *Routine Cardiovascular Exam Cardiovascular: Present RRR *Routine Abdominal Exam Abdominal: Present soft and normoactive bowel sounds; Absent tenderness *Routine Extremities Exam Extremities: Absent cyanosis, clubbing or edema *Routine Skin Exam Skin: Present warm; Absent rash *Routine Neurological Exam Neurological: Present alert and oriented X3 Assessment and Plan *Assessment and plan (1) Hypoglycemia: Status: Acute Category: Medical Code(s): E16.2 - Hypoglycemia, unspecified Plan - Patient did not meet whipp[facility] triad for hypoglycemia during the episode yesterday. This makes hypoglycemia unlikely. - Recommended patient to maintain symptom diary at home to evaluate hypoglycemia again. We also discussed options to repeat 72hr fast or going to ER when he has another episode to get plasma blood glucose. - Noted that his HR at 54 yesterday when he had symptoms. - Given his history of syncope and bradycardia in the past, recommend cardiology evaluation. - Patient ok for discharge from endocrine standpoint. Plan follow up outpatient in 2 weeks to discuss results.
--- NOTE | 2025-07-20 10:42 | SW/DCPLANNER ---
Spoke with patient on the phone. Patient stated that he is doing good. Patient stated that he is aware of his upcoming appointments. Patient stated that he was not prescribed any new medicine. Patient stated that he has no concerns or questions at this time. Shiloh Linares
[2025-07-20 13:43] LABS: Insulin Level Total 9.4 uIU/mL (2.6-24.9)
== END 2025-07-19 11:23 | disposition home or self-care (01) | DRG 641 ==
PROVIDERS: Internal Medicine Adolescent Medicine; Student in an Organized Health Care Education/Training Program; Admitting Provider Student in an Organized Health Care Education/Training Program; PCP Nurse Practitioner Family; Visit Provider Student in an Organized Health Care Education/Training Program
DX: E16.2 Hypoglycemia, unspecified (principal); E78.5 Hyperlipidemia, unspecified; I10 Essential (primary) hypertension; R00.1 Bradycardia, unspecified; Z79.82 Long term (current) use of aspirin; Z79.899 Other long term (current) drug therapy
CPT/HCPCS: 36415; 80048; 82010; 82533; 82947; 82962; 83525; 84681; 87040; 93306; J1611

== ENCOUNTER 2025-08-08 08:00 | Outpatient (CLI) | payer BC, SELFPAY ==
--- OUTSIDE RECORDS SUMMARY | 2025-08-08 08:04 | XMS_ITS | Continuity of Care Document ---
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 - Advise patient to return to work on night - Follow up after blood work results are available Not available 06/28/2025 10:51:02 Plan of Treatment Reminders Order Date Submit Date Provider Last Modified By Organization Details Last Modified Time Details Appointments ANNUAL EXAM 2025 08:00A M Eladio Pleitez APRN Not available Not available Not available Lab glucose, fingersti ck, blood 2024 025 [facility], [facility] [place], [address], 06/28/2025 10:39:29 C-peptide , serum 2024 025 [place] [facility] [place], [address], 06/29/2025 12:10:10 HbA1c (hemoglob in A1c), blood 2024 025 [place] [facility] [address] [place], [address], 06/29/2025 12:10:11 CBC w/ auto diff 2024 025 [place] [facility] [address] [place] [address], [address], 06/29/2025 12:10:09 BMP, serum or plasma 2024 025 [place] [facility] [address] [place] [address], [address], 06/29/2025 12:10:09 Referral None recorded. Procedures None recorded. Surgeries None recorded. Imaging None recorded. Medication Orders glucose 4 gram chewable tablet [address] [facility], [address] [place] [address], [address], 07/05/2025 13:54:27 Patient TargetsNo targets recorded. Patient InstructionsNo instructions recorded. Reason for Referral None Reported. Results Created Date Observation Date Name Description Value Unit Range Abnormal Flag Note LastModifiedBy Organization Detail LastModifiedTime 06/28/20 25 06/28/2025 gluco sehaile, blood Blood Glucose: mg/dl 134 Not Available [address], [address], 06/28/2025 10:32:30 07/08/20 25 07/08/2025 CT, head + brain , w/o contr ast No observ ation record ed. [email or web address] [facility] [address], [place], [address], 07/11/2025 11:13:20 07/19/20 25 07/19/2025 US, doppl er echoc ardio gram No observ ation record ed. [facility] [address], [place], [address], 07/19/2025 12:09:00 Result Notes None recorded. Problems Name Problem SNOMED Code Status Onset Date Resolution Date Notes Provider Name and Address Organization Details Recorded Time Low back pain 163737946 Completed 201605/19/2020 Problem Code: M54.5; Problem Code Type: ICD-10; Not Available [facility] 2 22:48:45 Right side sciatica 25739957649 9101 Completed 201605/19/2020 Problem Code: M54.31; Problem Code Type: ICD-10; Not Available [facility] 22:48:47 Abdomina l pain 05802339 Completed 201902/13/2021 Problem Code: R10.9; Problem Code Type: ICD-10; Not Available [facility] 22:48:45 Nausea and vomiting 87168645 Completed 201907/06/2022 Problem Code: R11.2; Problem Code Type: ICD-10; CESAR reynolds, [employer] 2 07:55:25 Diarrhea 41624804 Completed 201907/06/2022 Problem Code: R19.7; Problem Code Type: ICD-10; CESAR reynolds [employer] 2 07:55:26 Splenome gilberto 09103751 Active 2019 Problem Code: R16.1; Problem Code Type: ICD-10; Not Available [facility] 2 22:48:45 Diarrhea 77650250 Completed 201902/13/2021 Problem Code: R19.7; Problem Code Type: ICD-10; CESAR reynolds, [employer] 2 07:55:26 Hyperten sive disorder 33138861 Active 2020 Problem Code: I10; Problem Code Type: ICD-10; Kari Pleitez, [employer] [address] [place], [address] , [employer] 5 13:19:35 Pain in right knee Completed 202007/06/2022 Problem Code: M25.561; Problem Code Type: ICD-10; CESAR reynolds, [employer]. 2 07:55:26 General examinat ion of patient Completed 202007/06/2022 CESAR reynolds, [employer]. 2 07:55:25 Body mass index 30+ - obesity 252904745 Active 2020 Problem Code: Z68.30; Problem Code Type: ICD-10; Not Available [facility] 2 22:48:47 Disorder of upper respirat ory system 453221950 Completed 202007/06/2021 Problem Code: J06.9; Problem Code Type: ICD-10; Not Available [facility] 2 22:48:45 COVID-19 073678806 Completed 202007/06/2022 Problem Code: U07.1; Problem Code Type: ICD-10; CESAR reynolds, [employer]. 2 07:55:26 Bronchop neumonia 193120530 Completed 202007/06/2022 Problem Code: J18.0; Problem Code Type: ICD-10; CESAR reynolds, [employer] 2 07:55:26 [place] lesion of lung 969426404 Completed 202007/06/2022 Problem Code: R91.1; Problem Code Type: ICD-10; CESAR reynolds, [employer] 2 07:55:26 Mixed hyperlip idemia 359852831 Active 2020 Problem Code: E78.2; Problem Code Type: ICD-10; Not Available [facility] 2 22:48:44 Influenz a vaccine needed 88294505362 06 Completed 202007/06/2022 Problem Code: Z23; Problem Code Type: ICD-10; CESAR reynolds, [employer] 2 07:55:25 Noninfec tious gastroen teritis 05740488 Completed 202107/06/2022 CESAR reynolds, [employer] 2 07:55:25 Prediabe ej 687009134 Active 2023 Kari Pleitez APRN [address] [place] [address], [address] [place] [address] , [employer] 5 13:15:49 Body mass index 25-29 - overweig ht 308348071 Active 2024 Kari Pleitez APRN [address] [place] [address], [address] [place] [address] , [employer] 5 08:10:40 Hypoglyc emia 168707909 Active 2024 Kari Pleitez APRN [address] [place] [address], [address] [place] [address] , [employer] 5 10:34:25 Hyperins ulinism 75166338 Active 2024 Kari Pleitez APRN [address] [place] [address], [address] [place] [address] , [employer] 5 13:19:21 Problem Notes None recorded. Procedures Surgical History Date Name Laterality Status Provider Name and Address Organization Details Recorded Time 11/20 Cerumen Removal completed LAURITA BYNUM [employer] 3 09:40:03 07/06 Cerumen Removal completed Kym Garibay PA-C [address] [place], [address] , [facility] [employer] 2 09:08:27 07/21 esophagogastroduodenoscopy completed [facility] [employer] Dedrick [employer] 2 07:58:09 Appendectomy completed CESAR LEIVA [place] [employer], [employer] 2 07:57:06 Tonsillectomy completed CESAR LEIVA [place] [employer] 2 07:57:19 Wrist arthroscopy/surgery [facility] [employer]. 2 07:57:40 Back Surgery [facility] [employer] Dedrick [employer] 2 07:57:50 Imaging Results None recorded. Procedure [...] Not Available Not Available No t Available Dexcom G7 Sensor device Use as directed every 10 days. active Not Available Not Available No t Available glucose 3.75 gram chewable tablet TAKE 1 TABLET BY MOUTH NEEDED FOR hypoglyce stan active Not Available Not Available No t Available Vitals Date Recorded Body height Body mass index (BMI) Body weight Body temperature Heart rate Oxygen saturation Oxygen saturation in Arterial blood by Pulse oximetry Systolic And Diastolic Provider Name and Address Organization Details Last Updated DateTime 5 185.42 cm 29.3 kg/m2 808991. 79 g 73.3 [degF] 73 /min 96 % 96 % 108/67 mm[Hg] LAURITA CARVALHOLAURIE [employer]. 5 10:32:05 Social History Question Answer Notes LastModified by Organizat ion Details LastModified Time Tobacco Smoking Status Never Smoker CESAR LEIVA gail [employer], [employer]. 07/06/2022 07:56:42 Do You Have An Advance Directive? No [email or web address] Information n ot available 07/06/2022 Is Your [...] Or The Highest Degree You Have Received? [id number] Information not available 07/06/2022 Who Is Your Employer? [employer] [email or web address] Information not available 07/06/2022 Do You Have A Medical Power Of Relationship Specialist? No [email or web address] Information not available 07/06/2022 What Was The Date Of Your Most Recent Tobacco Screening? 08/03/2025 Information not available 08/03/2025 What Is Your Relationship Status? [email or web address] Information not available 07/06/2022 Do You Use [...] Functional Status Question Answer Note LastModified by 2 [employer] Group[employer] ion Details LastModified Time Do you use any illicit or recreational drugs? No [email or web address] Information not available 07/06/2022 Do you or have you ever used any other forms of tobacco or nicotine? No Information not available 09/10/2023 What is your level of alcohol consumption? None [email or web address] Information not available 07/06/2022 Are you currently employed? Yes [email or web address] Information not available 07/06/2022 Do you have transportation difficulties? No Information not available 03/05/2023 Are you able to care for yourself independently? Yes Information not available 03/05/2023 Mental Status None recorded. Family History Relationship Description Onset Age of this Age Resolved Age Notes LastModified by Organization Details LastModified Time Father No current problems or disability [email or web address] Not available 07:55:43 Mother No current problems or disability Not available 07:55:43 Medical History Condition Response High Cholesterol Y Hypertension Y Immunizations Vaccine Type Date Status Note Provider Nam e and Address Organization Details Recorded Time COVID-19, mRNA, LNP-S, PF, 30 mcg/0.3 mL dose 1 completed LAURITA reynolds, [employer] 09/23/2022 10:12:04 COVID-19, mRNA, LNP-S, PF, 30 mcg/0.3 mL dose 1 completed LAURITA MYNEAR null, [employer] 09/23/2022 10:12:04 Td (adult), 2 Lf tetanus toxoid, preservative free, adsorbed 6 completed JUAN reynolds, [facility] [employer] 09/19/2022 10:39:21 Influenza, split virus, trivalent, PF 5 completed LAURITAMAXIM reynolds, [place] [facility] [employer] 08/03/2025 11:26:29 Past Encounters Encounter ID Performer Location Encounter Start Date Encounter Closed Date Diagnosis/Indication Diagnosis SNOMED-CT Code Diagnosis ICD10 Code Diagnosis IMO Codes Diagnosis Note [id number] Kari Pleitez [employer] [address] [address] 06/28/2025 10:14:48 06/28/2025 11:38:19 Hypoglycemia 577534384 E16.2 20200 RTW on night 06/30/2025 Health Concerns Section Related Observation LastModified by Organization Detai ls LastModified Time None Recorded Concern Status LastModified by Organization Details LastModified Time None Recorded Payers Encounter Date Sequence Insurance Name Policy Number Policy Arizmendi Covered Member ID Arizmendi Member ID Guarantor Name 06/28/2025 1 [place] [id number] Tunde Paige [id number] Tunde Paige Notes Date Note Type Note [...] of blood glucose levels.Medical History- Prediabetes Kari lPeitez APRN [address] [facility], [place], [address], [facility] [employer] 06/28/2025 10:51:45
--- OUTSIDE RECORDS SUMMARY | 2025-08-08 08:04 | XMS_ITS | Clinical Summary ---
[facility] Address [address] [place] [address] Care Team Providers Care Litigation Claim Representative Name Role Phone Maik Kari DUGLAS Primary Care Provider Social History Tobacco Use Types Packs/Day Years [...] - Tdap) 05/11/2006 05/11/1996 INFLUENZA VACCINE 05/13/2025 COLOGUARD 2025 COLON CANCER SCREENING 5 YEA R SIGMOIDOSCOPY 2025 COLONOSCOPY 2025 COLORECTAL CANCER SCREENING 2025 CT COLONOGRAPHY 2025 FECAL OCCULT BLOOD TEST 2025 FIT Testing (1 year) 2025 HEMOGLOBIN A1C Discontinued 02/26/2023, 02/26/2023 Pneumococcal Vaccine 0-49 Aged Out No longer eligible based on patient's age to complete this topic Insurance PPO Care Teams Litigation Claim Representative Relationship Specialty Start Date End Date Kari Pleitez APRN [address] [place] [address] PCP - General Nurse Practitioner 03/17/23
--- OUTSIDE RECORDS SUMMARY | 2025-08-08 08:04 | XMS_ITS | Continuity of Care Document ---
Author Organization [employer] [facility] Address [address] [place] [address] Assessment Encounter Date Assessment Date Assessment LastModified [...] monitor for 2 weeks - Refer to brine process operator, Dr. 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 Plan: - Implement continuous glucose monitoring for 2 weeks to gather data for endocrinology appointment - Educate on regular meal timing and protein intake to stabilize blood glucose - Follow up with brine process operator for comprehensive diabetes management plan Not available 07/05/2025 13:53:48 Plan of Treatment Reminders Order Date Submit Date Provider Last Modified By Organization Details Last Modified Time Details Appointments ANNUAL EXAM 2025 08:00A M Lauren. DUGLAS Pleitez Not available Not available Not available Lab glucose, fingersti ck, blood 2024 025 [facility], [address] [place] [address], [address], 07/05/2025 13:39:44 Referral endocrino logy referral - first available appt 2024 025 JANICE Ebony Morris MD, [address], [place], [address], 07/13/2025 15:11:03 Procedures None recorded. Surgeries None recorded. Imaging None recorded. Medication Orders glucose 4 gram chewable tablet 2024 025 [facility], [address] [place] [address], [address], 07/05/2025 15:15:05 Patient TargetsNo targets recorded. Patient InstructionsNo instructions recorded. Reason for Referral Endocrinology Referral for H [email or web address] first available appt Referring Physician: Kari Pleitez, Family Medicine, Encounter Date: 07/05/2025 Results Created Date Observation Date Name Description Value Unit Range Abnormal Flag Note LastModifiedBy Organization Detail LastModifiedTime 06/28/2006/28/2025 gluco sehaile, blood Blood Glucose: mg/dl 134 Not Available [address], [address], 06/28/2025 10:32:30 07/05/20 25 07/05/2025 gluco se, jessicae rstic k, blood Blood Glucose: mg/dl 88 Not Available [facility] - [address], [place], [address], 07/05/2025 13:14:12 07/08/20 25 07/08/2025 CT, head + brain , w/o contr ast No observ ation record ed. [email or web address] [place] [address], [place], [address], 07/11/2025 11:13:20 07/19/2007/19/2025 US, doppl er echoc ardio gram No observ ation record ed. [place] [address], [place], [address], 07/19/2025 12:09:00 Result Notes None recorded. Problems Name Problem SNOMED Code Status Onset Date Resolution Date Notes Provider Name and Address Organization Details Recorded Time Low back pain 318776984 Completed 201605/19/2020 Problem Code: M54.5; Problem Code Type: ICD-10; Not Available [facility] 22:48:45 Right side sciatica 61834976577 9101 Completed 201605/19/2020 Problem Code: M54.31; Problem Code Type: ICD-10; Not Available [facility] 22:48:47 Abdomina l pain 74778400 Completed 201902/13/2021 Problem Code: R10.9; Problem Code Type: ICD-10; Not Available [facility] 22:48:45 Nausea and vomiting 94320961 Completed 201907/06/2022 Problem Code: R11.2; Problem Code Type: ICD-10; NEEMA Oconnell - [employer]. 07:55:25 Diarrhea 49869825 Completed 201907/06/2022 Problem Code: R19.7; Problem Code Type: ICD-10; CESAR reynolds, [employer] 2 07:55:26 Gerardo macias 49960219 Active 2019 Problem Code: R16.1; Problem Code Type: ICD-10; Not Available [facility] 22:48:45 Diarrhea 37720525 Completed 201902/13/2021 Problem Code: R19.7; Problem Code Type: ICD-10; CESAR reynolds, [employer] 2 07:55:26 Hyperten sive disorder 09377641 Active 2020 Problem Code: I10; Problem Code Type: ICD-10; Kari Pleitez, PATIENT BILLER [address] [place] [address], [address] , [employer] 5 13:19:35 Pain in right knee Completed 202007/06/2022 Problem Code: M25.561; Problem Code Type: ICD-10; CESAR reynolds, [employer] 2 07:55:26 General examinat ion of patient Completed 202007/06/2022 CESAR reynolds, [employer] 2 07:55:25 Body mass index 30+ - obesity 057755750 Active 2020 Problem Code: Z68.30; Problem Code Type: ICD-10; Not Available [facility] 2 22:48:47 Disorder of upper respirat ory system 058173020 Completed 202007/06/2021 Problem Code: J06.9; Problem Code Type: ICD-10; Not Available [facility] 2 22:48:45 COVID-19 804408281 Completed 202007/06/2022 Problem Code: U07.1; Problem Code Type: ICD-10; CESAR reynolds, [employer] 07:55:26 Bronchop neumonia 343513886 Completed 202007/06/2022 Problem Code: J18.0; Problem Code Type: ICD-10; CESAR reynolds, [employer] 2 07:55:26 [place] lesion of lung 877050319 Completed 202007/06/2022 Problem Code: R91.1; Problem Code Type: ICD-10; CESAR reynolds, [employer] 07:55:26 Mixed hyperlip idemia 266605960 Active 2020 Problem Code: E78.2; Problem Code Type: ICD-10; Not Available [facility] 22:48:44 Influenz a vaccine needed 76913082153 06 Completed 202007/06/2022 Problem Code: Z23; Problem Code Type: ICD-10; CESAR reynolds, [employer] 07:55:25 Noninfec tious gastroen teritis 26835013 Completed 202107/06/2022 CESAR reynolds, [employer] 07:55:25 Prediabe ej 527226810 Active 2023 Kari Pleitez APRN [address] [place] [address], [address] , [employer] 5 13:15:49 Body mass index 25-29 - overweig ht 811993916 Active 2024 Kari Pleitez APRN [address] [place] [address], [address] , [employer] 5 08:10:40 Hypoglyc emia 730784326 Active 2024 Kari Pleitez APRN [address] [place] [address], [address] , [employer] 5 10:34:25 Hyperins ulinism 13093876 Active 2024 Kari Pleitez APRN [address] [place] [address], [address] , [employer]. 5 13:19:21 Problem Notes None recorded. Procedures Surgical History Date Name Laterality Status Provider Name and Address Organization Details Recorded Time 11/20 Cerumen Removal completed LAURITACONOR BYNUM [employer]. 3 09:40:03 07/06 Cerumen Removal completed Kym Garibay PA-C [address] [place] [address], [address] , [employer]. 2 09:08:27 07/21 esophagogastroduodenoscopy completed [place]OHANKEN [place] [employer] 2 07:58:09 Appendectomy completed [facility] [employer]. 2 07:57:06 Tonsillectomy completed CESAR [employer]. 2 07:57:19 Wrist arthroscopy/surgery completed CESAR [employer]. 2 07:57:40 Back Surgery completed CESAR [employer]. 2 07:57:50 Imaging Results None recorded. Procedure [...] Not Available Not Available Not Available dextrometho rphan-kittyf enesin 10 mg-100 mg/5 mL oral liquid [...] Updated DateTime 5 185.42 cm 29.3 kg/m2 011405. 22 g 99 [degF] 90 /min 96 % 96 % 125/78 mm[Hg] LAURITA BYNUM [employer] 5 13:13:38 Social History Question Answer Notes LastModified by Organizat ion Details LastModified Time Tobacco Smoking Status Never Smoker CESARMILTON reynolds, [employer]. 07/06/2022 07:56:42 Do You Have An Advance Directive? No [email or web address] Information n ot available 07/06/2022 Is Your [...] Or The Highest Degree You Have Received? [id number] [email or web address] Information not available 07/06/2022 Who Is Your Employer? [employer] [email or web address] Information not available 07/06/2022 Do You Have A Medical Power Of Crop Specialist? No [email or web address] Information not available 07/06/2022 What Was The Date Of Your Most Recent Tobacco Screening? 08/03/2025 Information not available 08/03/2025 What Is Your Relationship Status? [email or web address] Information not available 07/06/2022 Do You Use [...] use any illicit or recreational drugs? No [email or web address] Information not available 07/06/2022 Do you or have you ever used any other forms of tobacco or nicotine? No Information not available 09/10/2023 What is your level of alcohol consumption? None [email or web address] Information not available 07/06/2022 Are you currently employed? Yes [email or web address] Information not available 07/06/2022 Do you have transportation difficulties? No Information not available 03/05/2023 Are you able to care for yourself independently? Yes Information not available 03/05/2023 Mental Status None recorded. Family History Relationship Description Onset Age of this Age Resolved Age Notes LastModified by Organization Details LastModified Time Father No current problems or disability [email or web address] Not available 07:55:43 Mother No current problems or disability [email or web address] Not available 07:55:43 Medical History Condition Response High Cholesterol Y Hypertension Y Immunizations Vaccine Type Date Status Note Provider Nam rosendo and Address Organization Details Recorded Time COVID-19, mRNA, LNP-S, PF, 30 mcg/0.3 mL dose completed NEEMA [place] - [employer]. 09/23/2022 10:12:04 COVID-19, mRNA, LNP-S, PF, 30 mcg/0.3 mL dose 1 completed LAURITA MYNEARashmi null, [employer] 09/23/2022 10:12:04 Td (adult), 2 Lf tetanus toxoid, preservative free, adsorbed 6 completed JUAN BARDALES null, [employer] 09/19/2022 10:39:21 Influenza, split virus, trivalent, PF 5 completed LAURITA MYNEAR null, [employer] 08/03/2025 11:26:29 Past Encounters Encounter ID Performer Location Encounter Start Date Encounter Closed Date Diagnosis/Indication Diagnosis SNOMED-CT Code Diagnosis ICD10 Code Diagnosis IMO Codes Diagnosis Note [id number] [place] [address] 06/28/2025 10:14:48 06/28/2025 11:38:19 Hypoglycemia 460238318 E16.2 79798 RTW on night 06/30/2025 [id number] [place] [address] 07/01/2025 11:15:54 07/02/2025 10:57:06 [id number] [place] [address] 07/05/2025 12:57:11 07/05/2025 14:06:01 Hypoglycemia 160400243 E16.2 36355 Obtain and carry the prescribed glucose tablets Prediabetes 701923544 R7 3.03 917457 Again emphasized regular low carb diet and exercise. Hypertensive disorder 38 400731 I10 DASH diet, avoid ETOH, exercise. Monitor BP at home routinely and report excursions . Hyperinsulinism 01478098 E16.1 4537220 Off work for 2 weeks until seen by Endo, tentative RTW date will be 07/25/25. Begin 2 week CGM with [employer]. Health Concerns Section Related Observation LastModified by Organization Detai ls LastModified Time None Recorded Concern Status LastModified by Organization Details LastModified Time None Recorded Payers Encounter Date Sequence Insurance Name Policy Number Policy Arizmendi Covered Member ID Arizmendi Member ID Guarantor Name 07/05/2025 1 [place] [id number] Tunde Paige [id number] Tunde Paige Notes Date Note Type Note [...] for hypoglycemia episodes. Kari Pleitez, DUGLAS [address] [place], [address], [facility] [employer] 07/05/2025 13:54:30
--- OUTSIDE RECORDS SUMMARY | 2025-08-08 08:04 | XMS_ITS | Data Portability ---
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 Plan: - Implement continuous glucose monitoring for 2 weeks to gather data for endocrinology appointment - Educate on regular meal timing and protein intake to stabilize blood glucose - Follow up with supervisor cooler service for comprehensive diabetes management plan [email or web address] Not available 07/05/2025 13:53:48 Plan of Treatment Reminders Order Date Submit Date Provider Last Modified By Organization Details Last Modified Time Details Appointments ANNUAL EXAM 2025 08:00A M Eladio Pleitez APRN Not available Not available Not available Lab glucose, fingersti ck, blood 2024 025 [email or web address] [address], [address], 07/05/2025 13:39:44 glucose, fingersti ck, blood 2024 025 [facility] [address], [address], 06/28/2025 10:39:29 C-peptide , serum 2024 025 JANICE [facility] [address] [place], [address], 06/29/2025 12:10:10 HbA1c (hemoglob in A1c), blood 2024 025 JANICE [facility] [address] [place], [address], 06/29/2025 12:10:11 CBC w/ auto diff 2024 025 JANICE [facility] [address] [place], [address], 06/29/2025 12:10:09 BMP, serum or plasma 2024 025 JANICE [facility] ([place] [address] [place], [address], 06/29/2025 12:10:09 CMP, serum or plasma 2024 025 JANICE [facility] [address] [place], [address], 04/21/2025 08:11:12 CBC w/ auto diff 2024 025 JANICE [facility] [address] [place] [address], [address], 04/21/2025 08:11:10 lipid panel, serum 2024 025 JANICE [facility] [address] [place] [address], [address], 04/21/2025 08:11:12 HbA1c (hemoglob in A1c), blood 2024 025 JANICE [facility] [address] [place], [address], 04/21/2025 08:11:13 TSH, ultra-sen sitive, serum 2024 025 HURON [facility]), [facility], [place], [address], 04/21/2025 08:11:14 Referral endocrino logy referral - first available appt 2024 025 JANICE Ebony Morris MD, [address], [place], [address], 07/13/2025 15:11:03 Procedures None recorded. Surgeries None recorded. Imaging None recorded. Medication Orders glucose 4 gram chewable tablet 2024 025 [facility], [address] [place] [address], [address], 07/05/2025 15:15:05 glucose 4 gram chewable tablet 2024 025 [facility], [address] [place] [address], [address], 07/05/2025 13:54:27 rosuvasta tin 20 mg tablet 2024 025 [facility], [address] [place] [address], [address], 06/09/2025 10:54:15 lisinopri l 10 mg-hydroc hlorothia zide 12.5 mg tablet 2024 025 [facility], [address] [place] [address], [address], 06/09/2025 10:54:11 Patient TargetsNo targets recorded. Patient InstructionsNo instructions recorded. Reason for Referral Endocrinology Referral for H yperinsulinism first available appt Referring Physician: Kari Pleitez, Family Medicine, Encounter Date: 07/05/2025 Results Created Date Observation Date Name Description Value Unit Range Abnormal Flag Note LastModifiedBy Organization Detail LastModifiedTime 04/20/20 25 04/21/2025 CBC WITH DIFFE RENTI AL/PL ATELE T WBC 7.1 x10e3 /uL 3.4-10 .8 normal Not Available [facility] ([facility]) [address] [facility], [place], [address], 04/21/2025 08:11:10 04/20/2004/21/2025 CBC WITH DIFFE RENTI AL/PL ATELE T RBC 4.79 x10e6 /uL 4.14-5 .80 normal Not Available [facility] ([facility]) [address] [place], [address], 04/21/2025 08:11:10 04/20/20 25 04/21/2025 CBC WITH DIFFE RENTI AL/PL ATELE T hemoglobin 14.6 g/dL 13.0-1 7.7 normal Not Available [facility] ([facility]) [address] [facility], [place], [address], 04/21/2025 08:11:10 04/20/2004/21/2025 CBC WITH DIFFE RENTI AL/PL ATELE T hematocrit 46.6 % 37.5-5 1.0 normal Not Available [facility] ([facility]) [address] [place], [address], 04/21/2025 08:11:10 04/20/2004/21/2025 CBC WITH DIFFE RENTI AL/PL ATELE T MCV 97 fL 79-97 normal Not Available [facility] ([facility]) [address] [place], [address], 04/21/2025 08:11:10 04/20/20 25 04/21/2025 CBC WITH DIFFE RENTI AL/PL ATELE T MCH 30.5 pg 26.6-3 3.0 normal Not Available [facility] ([facility]) [address] [place], [address], 04/21/2025 08:11:10 04/20/20 25 04/21/2025 CBC WITH DIFFE RENTI AL/PL ATELE T MCHC 31.3 g/dL 31.5-3 5.7 below low normal Not Available [facility] ([facility]) [address] [facility], [place], [address], 04/21/2025 08:11:10 04/20/2004/21/2025 CBC WITH DIFFE RENTI AL/PL ATELE T RDW 13.6 % 11.6-1 5.4 Not Available [facility] ([facility]) [address] [facility], [place], [address], 04/21/2025 08:11:10 04/20/20 25 04/21/2025 CBC WITH DIFFE RENTI AL/PL ATELE T platelets 277 x10e3 /uL 150-45 0 normal Not Available [facility] ([facility]) [address] [facility], [place], [address], 04/21/2025 08:11:10 04/20/20 25 04/21/2025 CBC WITH DIFFE RENTI AL/PL ATELE T neutrophils 50 % not estab. normal Not Available [facility] ([facility]) [address] [facility], [place], [address], 04/21/2025 08:11:10 04/20/2004/21/2025 CBC WITH DIFFE RENTI AL/PL ATELE T lymphs 36 % not estab. normal Not Available [facility] ([facility]) [address] [facility], [place], [address], 04/21/2025 08:11:10 04/20/20 25 04/21/2025 CBC WITH DIFFE RENTI AL/PL ATELE T monocytes 7 % not estab. normal Not Available [facility] ([facility]) [address] [facility], [place], [address], 04/21/2025 08:11:10 04/20/2004/21/2025 CBC WITH DIFFE RENTI AL/PL ATELE T eos 6 % not estab. normal Not Available [facility] ([facility]) [address] [facility], [place], [address], 04/21/2025 08:11:10 04/20/2004/21/2025 CBC WITH DIFFE RENTI AL/PL ATELE T basos 1 % not estab. normal Not Available [facility] ([facility]) [address] [facility], [place], [address], 04/21/2025 08:11:10 04/20/2004/21/2025 CBC WITH DIFFE RENTI AL/PL ATELE T immature cells BUTCHER'S ASSISTANT Not Available [facility]) [address] [place], [address], 04/21/2025 08:11:10 04/20/2004/21/2025 CBC WITH DIFFE RENTI AL/PL ATELE T neutrophils (absolute) 3.5 x10e3 /uL 1.4-7. 0 normal Not Available [facility] ([facility]) [address] [place], [address], 04/21/2025 08:11:10 04/20/2004/21/2025 CBC WITH DIFFE RENTI AL/PL ATELE T lymphs (absolute) 2.6 x10e3 /uL 0.7-3. 1 normal Not Available [facility] ([facility]) [address] [place], [address], 04/21/2025 08:11:10 04/20/2004/21/2025 CBC WITH DIFFE RENTI AL/PL ATELE T monocytes(ab solute) 0.5 x10e3 /uL 0.1-0. 9 normal Not Available [facility] ([facility]) [address] [place], [address], 04/21/2025 08:11:10 04/20/20 25 04/21/2025 CBC WITH DIFFE RENTI AL/PL ATELE T eos (absolute) 0.4 x10e3 /uL 0.0-0. 4 normal Not Available [facility] ([facility]) [address] [facility], [place], [address], 04/21/2025 08:11:10 04/20/20 25 04/21/2025 CBC WITH DIFFE RENTI AL/PL ATELE T baso (absolute) 0.1 x10e3 /uL 0.0-0. 2 normal Not Available [facility] ([facility]) [address] [facility], [place], [address], 04/21/2025 08:11:10 04/20/20 25 04/21/2025 CBC WITH DIFFE RENTI AL/PL ATELE T immature granulocytes 0 % not estab. Not Available [facility] ([facility]) [address] [facility], [place], [address], 04/21/2025 08:11:10 04/20/20 25 04/21/2025 CBC WITH DIFFE RENTI AL/PL ATELE T immature grans (abs) 0.0 x10e3 /uL 0.0-0. 1 Not Available [facility] ([facility]) [address] [facility], [place], [address], 04/21/2025 08:11:10 04/20/2004/21/2025 CBC WITH DIFFE RENTI AL/PL ATELE T NRBC BUTCHER[employer] ASSISTANT Not Available [facility] ([facility]) [address] [facility], [place], [address], 04/21/2025 08:11:10 04/20/20 25 04/21/2025 CBC WITH DIFFE RENTI AL/PL ATELE T hematology comments: BUTCHER'S ASSISTANT Not Available [facility]) [address] [facility], [place], [address], 04/21/2025 08:11:10 04/20/20 25 04/21/2025 COMP. METAB OLIC PANEL (14) glucose 104 mg/dL 70-99 above high normal Not Available [facility] ([facility]) [address] [place], [address], 04/21/2025 08:11:12 04/20/20 25 04/21/2025 COMP. METAB OLIC PANEL (14) BUN 8 mg/dL 6-24 normal Not Available [facility] ([facility]) [address] [place], [address], 04/21/2025 08:11:12 04/20/20 25 04/21/2025 COMP. METAB OLIC PANEL (14) creatinine 0.81 mg/dL 0.76-1 .27 normal Not Available [facility] ([facility]) [address] [place], [address], 04/21/2025 08:11:12 04/20/20 25 04/21/2025 COMP. METAB OLIC PANEL (14) eGFR 111 mL/mi n/1.7 3 >59 normal Not Available [facility] ([facility]) [address] [place], [address], 04/21/2025 08:11:12 04/20/20 25 04/21/2025 COMP. METAB OLIC PANEL (14) BUN/creatini ne ratio 10 9-20 normal Not Available [facility] ([facility]) [address] [place], [address], 04/21/2025 08:11:12 04/20/20 25 04/21/2025 COMP. METAB OLIC PANEL (14) sodium 139 mmol/ L 134-14 4 normal Not Available [facility] ([facility]) [address] [place], [address], 04/21/2025 08:11:12 04/20/20 25 04/21/2025 COMP. METAB OLIC PANEL (14) potassium 4.0 mmol/ L 3.5-5. 2 normal Not Available [facility] ([facility]) [address] [place], [address], 04/21/2025 08:11:12 04/20/20 25 04/21/2025 COMP. METAB OLIC PANEL (14) chloride 100 mmol/ L 96-106 normal Not Available [facility] ([facility]) [address] [place], [address], 04/21/2025 08:11:12 04/20/20 25 04/21/2025 COMP. METAB OLIC PANEL (14) carbon dioxide, total 24 mmol/ L 20-29 normal Not Available [facility] ([facility]) [address] [place], [address], 04/21/2025 08:11:12 04/20/20 25 04/21/2025 COMP. METAB OLIC PANEL (14) calcium 9.9 mg/dL 8.7-10 .2 normal Not Available [facility] ([facility]) [address] [place], [address], 04/21/2025 08:11:12 04/20/20 25 04/21/2025 COMP. METAB OLIC PANEL (14) protein, total 7.1 g/dL 6.0-8. 5 normal Not Available [facility] ([facility]) [address] [place], [address], 04/21/2025 08:11:12 04/20/2004/21/2025 COMP. METAB OLIC PANEL (14) albumin 4.8 g/dL 4.1-5. 1 normal Not Available [facility] [address] [place], [address], 04/21/2025 08:11:12 04/20/20 25 04/21/2025 COMP. METAB OLIC PANEL (14) globulin, total 2.3 g/dL 1.5-4. 5 Not Available [facility] ([facility]) [address] [place], [address], 04/21/2025 08:11:12 04/20/20 25 04/21/2025 COMP. METAB OLIC PANEL (14) bilirubin, total 0.2 mg/dL 0.0-1. 2 normal Not Available [facility] ([facility]) [address] [place], [address], 04/21/2025 08:11:12 04/20/20 25 04/21/2025 COMP. METAB OLIC PANEL (14) alkaline phosphatase 84 IU/L 44-121 normal Not Available [facility]) [address] [place], [address], 04/21/2025 08:11:12 04/20/20 25 04/21/2025 COMP. METAB OLIC PANEL (14) AST (SGOT) 25 IU/L 0-40 normal Not Available [facility] ([facility]) [address] [place], [address], 04/21/2025 08:11:12 04/20/20 25 04/21/2025 COMP. METAB OLIC PANEL (14) ALT (SGPT) 32 IU/L 0-44 normal Not Available [facility] ([facility]) [address] [place], [address], 04/21/2025 08:11:12 04/20/20 25 04/21/2025 LIPID PANEL cholesterol, total 131 mg/dL 100-19 9 normal Not Available [facility] ([facility]) [address] [facility] [place], [address], 04/21/2025 08:11:12 04/20/20 25 04/21/2025 LIPID PANEL triglyceride s 208 mg/dL 0-149 above high normal Not Available [facility] ([facility]) [address] [facility] [place], [address], 04/21/2025 08:11:12 04/20/20 25 04/21/2025 LIPID PANEL HDL cholesterol 31 mg/dL >39 below low normal Not Available [facility] ([facility]) [address] [place], [address], 04/21/2025 08:11:12 04/20/20 25 04/21/2025 LIPID PANEL VLDL cholesterol roney 35 mg/dL 5-40 Not Available [facility]) [address] [place], [address], 04/21/2025 08:11:12 04/20/20 25 04/21/2025 LIPID PANEL LDL chol calc ([facility]) 65 mg/dL 0-99 Not Available [facility] [address] [place], [address], 04/21/2025 08:11:12 04/20/2004/21/2025 LIPID PANEL LDL calc comment: BUTCHER[employer] ASSISTANT Not Available [facility]) [address] [place], [address], 04/21/2025 08:11:12 04/20/2004/21/2025 HEMOG LOBIN A1C hemoglobin A1C 6.3 % 4.8-5. 6 above high normal Predi abete s: 5.7 - 6.4 Diabe ej: >6.4 Glyce vera contr ol for adult s with diabe ej: <7.0 Not Available [facility] ([facility]) [address] [place], [address], 04/21/2025 08:11:13 04/20/2004/21/2025 TSH RFX ON ABNOR MAL TO FREE T4 TSH 0.919 uIU/m L 0.450- 4.500 normal Not Available [facility] ([facility]) [address] [place], [address], 04/21/2025 08:11:14 06/28/2006/28/2025 gluco se, finge rstic k, blood Blood Glucose: mg/dl 134 Not Available [address], [address], 06/28/2025 10:32:30 07/05/20 25 07/05/2025 gluco se, finge rstic k, blood Blood Glucose: mg/dl 88 Not Available [address], [address], 07/05/2025 13:14:12 07/08/2007/08/2025 CT, head + brain , w/o contr ast No observ ation record ed. [email or web address] [facility] [address], [place], [address], 07/11/2025 11:13:20 07/19/2007/19/2025 US, doppl er echoc ardio gram No observ ation record ed. [facility] [address], [place], [address], 07/19/2025 12:09:00 Result Notes None recorded. Problems Name Problem SNOMED Code Status Onset Date Resolution Date Notes Provider Name and Address Organization Details Recorded Time Low back pain 307150059 Completed 201605/19/2020 Problem Code: M54.5; Problem Code Type: ICD-10; Not Available [facility] 22:48:45 Right side sciatica 40379277787 9101 Completed 201605/19/2020 Problem Code: M54.31; Problem Code Type: ICD-10; Not Available [facility] 22:48:47 Abdomina l pain 05154160 Completed 201902/13/2021 Problem Code: R10.9; Problem Code Type: ICD-10; Not Available [facility] 22:48:45 Nausea and vomiting 55433849 Completed 201907/06/2022 Problem Code: R11.2; Problem Code Type: ICD-10; CESAR reynolds, [employer] 2 07:55:25 Diarrhea 65448047 Completed 201907/06/2022 Problem Code: R19.7; Problem Code Type: ICD-10; CESAR reynolds, [employer] 2 07:55:26 Gerardo macias 26297063 Active 2019 Problem Code: R16.1; Problem Code Type: ICD-10; Not Available [facility] 2 22:48:45 Diarrhea 06422516 Completed 201902/13/2021 Problem Code: R19.7; Problem Code Type: ICD-10; CESAR reynolds, [employer] 2 07:55:26 Hyperten sive disorder 12329492 Active 2020 Problem Code: I10; Problem Code Type: ICD-10; Kari Pleitez, DUGLAS [address] [place] [address], [address] [facility] [employer] 5 13:19:35 Pain in right knee Completed 202007/06/2022 Problem Code: M25.561; Problem Code Type: ICD-10; CESAR reynolds, [employer] 2 07:55:26 General examinat ion of patient Completed 202007/06/2022 CESAR reynolds, [employer] 2 07:55:25 Body mass index 30+ - obesity 455737267 Active 2020 Problem Code: Z68.30; Problem Code Type: ICD-10; Not Available [facility] 22:48:47 Disorder of upper respirat ory system 171335567 Completed 202007/06/2021 Problem Code: J06.9; Problem Code Type: ICD-10; Not Available [facility] 2 22:48:45 COVID-19 403194686 Completed 202007/06/2022 Problem Code: U07.1; Problem Code Type: ICD-10; CESAR reynolds, [employer] 2 07:55:26 Bronchop neumonia 152432770 Completed 202007/06/2022 Problem Code: J18.0; Problem Code Type: ICD-10; CESAR reynolds, [employer] 2 07:55:26 [place] lesion of lung 032791131 Completed 202007/06/2022 Problem Code: R91.1; Problem Code Type: ICD-10; CESAR reynolds, [employer] 2 07:55:26 Mixed hyperlip idemia 072196630 Active 2020 Problem Code: E78.2; Problem Code Type: ICD-10; Not Available [facility] 2 22:48:44 Influenz a vaccine needed 20368554667 06 Completed 202007/06/2022 Problem Code: Z23; Problem Code Type: ICD-10; CESAR reynolds, [employer] 2 07:55:25 Noninfec tious gastroen teritis 18541669 Completed 202107/06/2022 CESAR reynolds, [employer] 2 07:55:25 Prediabe ej 793533636 Active 2023 Kari Pleitez APRN [address] [place] [address], [address] , [employer] 5 13:15:49 Body mass index 25-29 - overweig ht 889122097 Active 2024 Kari Pleitez APRN [address] [place] [address], [address] , [employer] 5 08:10:40 Hypoglyc emia 962702548 Active 2024 Kari Pleitez APRN [address] [place] [address], [address] , [employer] 5 10:34:25 Hyperins ulinism 72445229 Active 2024 Kari Pleitez APRN [address] [place], [address] , [employer] 5 13:19:21 Problem Notes None recorded. Procedures Surgical History Date Name Laterality Status Provider Name and Address Organization Details Recorded Time 11/20 Cerumen Removal completed LAURITA BYNUM [employer] 3 09:40:03 07/06 Cerumen Removal completed Kym Garibay PA-C [address] [place], [address] , [employer] 2 09:08:27 07/21 esophagogastroduodenoscopy completed JOHAN BAY [employer]. 2 07:58:09 Appendectomy completed [employer] 2 07:57:06 Tonsillectomy completed [employer]. 2 07:57:19 Wrist arthroscopy/surgery completed [employer]. 2 07:57:40 Back Surgery completed [employer] 2 07:57:50 Imaging Results None recorded. Procedure [...] oral route once daily for 5 days 08/04/ 2021 08/20 /2021 completed Not Available Not Available Not Available [...] Updated DateTime 5 185.42 cm 29.6 kg/m2 184818. 69 g 97.8 [degF] 63 /min 96 % 96 % 103/64 mm[Hg] [employer] 5 08:07:18 Date Recorded Body height Body mass index (BMI) Body weight Body temperature Heart rate Oxygen saturation Oxygen saturation in Arterial blood by Pulse oximetry Systolic And Diastolic Provider Name and Address Organization Details Last Updated DateTime 5 185.42 cm 29.3 kg/m2 507533. 79 g 73.3 [degF] 73 /min 96 % 96 % 108/67 mm[Hg] [employer] 5 10:32:05 Date Recorded Body height Systolic And Diastolic Provider Name and Address Organization Details Last Updated DateTime 07/01/2025 185.42 cm 120/74 mm[Hg] [employer] [facility] [employer] 07/01/2025 11:37:02 Date Recorded Body height Body mass index (BMI) Body weight Body temperature Heart rate Oxygen saturation Oxygen saturation in Arterial blood by Pulse oximetry Systolic And Diastolic Provider Name and Address Organization Details Last Updated DateTime 5 185.42 cm 29.3 kg/m2 839099. 22 g 99 [degF] 90 /min 96 % 96 % 125/78 mm[Hg] [employer] 13:13:38 Date Recorded Body height Body mass index (BMI) Body weight Body temperature Heart rate Oxygen saturation Oxygen saturation in Arterial blood by Pulse oximetry Systolic And Diastolic Provider Name and Address Organization Details Last Updated DateTime 5 185.42 cm 29.8 kg/m2 367717. 88 g 98.2 [degF] 83 /min 95 % 95 % 134/78 mm[Hg] LAURITA MYLAURIE [employer] 5 11:20:35 Social History Question Answer Notes LastModified by Organizat ion Details LastModified Time Tobacco Smoking Status Never Smoker CESAR reynolds [employer]. 07/06/2022 07:56:42 Do You Have An Advance Directive? No [email or web address] Information n ot available 07/06/2022 Is Your [...] Or The Highest Degree You Have Received? [id number] [email or web address] Information not available 07/06/2022 Who Is Your Employer? [employer] [email or web address] Information not available 07/06/2022 Do You Have A Medical Power Of Reimbursement Liaison? No [email or web address] Information not available 07/06/2022 What Was The Date Of Your Most Recent Tobacco Screening? 08/03/2025 Information not available 08/03/2025 What Is Your Relationship Status? [email or web address] Information not available 07/06/2022 Do You Use [...] use any illicit or recreational drugs? No [email or web address] Information not available 07/06/2022 Do you or have you ever used any other forms of tobacco or nicotine? No Information not available 09/10/2023 What is your level of alcohol consumption? None [email or web address] Information not available 07/06/2022 Are you currently employed? Yes Information not available 07/06/2022 Do you have transportation difficulties? No Information not available 03/05/2023 Are you able to care for yourself independently? Yes Information not available 03/05/2023 Mental Status None recorded. Family History Relationship Description Onset Age of this Age Resolved Age Notes LastModified by Organization Details LastModified Time Father No current problems or disability [email or web address] Not available 07:55:43 Mother No current problems or disability [email or web address] Not available 07:55:43 Medical History Condition Response High Cholesterol Y Hypertension Y Immunizations Vaccine Type Date Status Note Provider Nam e and Address Organization Details Recorded Time COVID-19, mRNA, LNP-S, PF, 30 mcg/0.3 mL dose 1 completed LAURITA reynolds, [employer] 09/23/2022 10:12:04 COVID-19, mRNA, LNP-S, PF, 30 mcg/0.3 mL dose 1 completed LAURITA reynolds, [employer] 09/23/2022 10:12:04 Td (adult), 2 Lf tetanus toxoid, preservative free, adsorbed 6 completed [facility] 09/19/2022 10:39:21 Influenza, split virus, trivalent, PF 5 completed LAURITA BYNUM [facility] 08/03/2025 11:26:29 Past Encounters Encounter ID Performer Location Encounter Start Date Encounter Closed Date Diagnosis/Indication Diagnosis SNOMED-CT Code Diagnosis ICD10 Code Diagnosis IMO Codes Diagnosis Note [id number] Kym Garibay PA-C [place] [address] 0 07/06/2022 07:57:28 07/06/2022 09:23:56 Impacted cerumen of bilateral ears [id number] 790853 H61.23 [id number] Kecia Gonsalez [place] [address] 0 09/19/2022 10:34:23 09/19/2022 11:05:29 Fever 803545767 R50.9 COVID-19 090178244 U07.1 Cough 85668475 R05.9 Body mass index 30+ - obesity 861938057 Z68.30 [id number] Kari Pleitez [place] [address] 0 09/23/2022 10:01:47 09/23/2022 10:39:25 Low back pain 685143628 M54.40 RCIE, continue stretches, to RTC in 1 week if sx are not improved. 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 Pain control, use of valtrex explained. Pain in coccyx 53693850 M53.3 RICE, obtain x ray. [id number] Kari Pleitez [place] [address] 0 11/20/2022 09:14:52 11/20/2022 09:42:41 Impacted cerumen in right ear 7377412529 109042 H61.21 [id number] Kari Pleitez [place] [address] 0 12/17/2022 07:49:51 12/17/2022 08:46:48 Hypertensive disorder 57719394 I10 DASh diet, exercise, and weight loss encouraged . Continue current medication s. Mixed hyperlipidemia 267 971249 E78.2 Adult heal th examination 882156239 Z00.00 Body mass index 30+ - obesity 332410624 Z68.30 Lumbosacra l radiculopathy 5740675 M54.17 [id number] [place] [address] 03/05/2023 08:54:57 03/05/2023 09:51:38 Transient cerebral ischemia 384460229 G45.9 Increase HCTZ to 25 mg daily. [...] Type 2 terra betes mellitus without complication [id number] E11.9 Diabetic diet explained in detail. [id number] Kari Pleitez [address] 0 04/04/2023 08:48:20 04/04/2023 09:33:08 Transient cerebral ischemia 500066361 G45.9 To remain off work for 2 more months due to persistent fatigue and poor activity tolerance and. Hopefully you can return to work when I see you back in 2 months. He is to continue his home PT program for cardiovasc ulvicenta mirzaditio jasmyn. Continue current medication s and the low carb low fat diet. Type 2 terra betes mellitus without complication 328324770 E11.9 Diabetic diet explained in detail. Recheck you A1c and fasting labs at next appt. [id number] Kari Pleitez [place] [id number] 06/04/2023 08:26:17 06/04/2023 10:26:09 Mixed hyperlipidemia 831606548 E78.2 He is to continue the statin and the aspirin. Type 2 terra betes mellitus without complication 583001500 E11.9 Continue current medication s, continue diabetic diet. Transient cerebral ischemia 466766194 G45.9 Patient may return to work without restrictio ns and if full-time hours starting tomorrow. Please see completed [place] release papers for full details of return to work. These were given to him today and faxed to his employer. [id number] [place] [address] 09/10/2023 10:40:11 09/10/2023 11:35:44 Type 2 diabetes mellitus without complication 810812857 E11.9 Continue current medication s, continue diabetic diet. Hypertensive disorder 38 348616 I10 Continue HCTZ, low salt intake and ETOH moderation . [id number] Kecia Gonsalez [place] [id number] 09/29/2023 12:51:59 09/29/2023 14:08:13 Fever 071069896 R50.9 Acute sinusitis 44614137 J01.90 Body mass index 25-29 - overweight 643652744 Z68.27 [id number] Kari Pleitez [place] [id number] 02/23/2024 09:27:16 02/23/2024 10:03:04 Prediabetes 577009943 R73.03 A1c has increased. Again emphasized low carb diet and exercise. Hypertensive disorder 38 383232 I10 Continue HCTZ, low salt intake and ETOH moderation . Mixed hyperlipidemia 267 619794 E78.2 He is to continue the statin and the aspirin. Adult heal th examination 162015324 Z00.00 The patient advised to continue a healthy diet and exercise regularly. He was also advised to:have a dermatogy skin screening . Labs will be sent. Advised patient to follow up in 1 year or sooner if needed. Body mass index 25-29 - overweight 556741739 Z68.28 [id number] [place] [address]8510 0 11/23/2024 09:01:27 11/23/2024 09:27:16 Prediabetes 486359222 R73.03 Again emphasized low carb diet and exercise. Hypertensive disorder 38 691472 I10 Continue HCTZ, low salt intake and ETOH moderation . Mixed hyperlipidemia 267 268009 E78.2 He is to continue the statin and the aspirin. Body mass index 25-29 - overweight 087481634 Z68.28 [id number] [place] [address] 0 12/15/2024 08:40:27 12/15/2024 09:32:56 Acute upper respiratory infection 79518128 J06.9 May RTW today. Continue to monitor [...] to 2 weeks if symptoms not improving. [id number] Kari Pleitez[address] [address] 01/25/2025 08:51:25 01/25/2025 09:39:36 Cough 68906015 R05.9 Acute bronchitis 3661356 2 J20.9 Cough The patient presents wet cough. The patient's condition is worsening. Based on the findings today we will begin medication therapy. Reviewed symptomati c care instructio ns, the expected course of these illnesses and explained that coughing can persist for some time. Provided precaution s for signs of worsening disease and instructio ns on contacting us if symptoms worsen. [id number] Kari Pleitez[address] 0 04/05/2025 09:35:07 04/05/2025 10:04:32 Hypertensive disorder 45433241 I10 Add lisinopril 10 mg daily. Continue HCTZ. Check BP at home every evening. Ensure low salt diet with adequate hydration. RTC in 2 weeks with BP log. [id number] [place] [id number] 04/20/2025 07:57:23 04/20/2025 08:24:22 Hypertensive disorder 14211940 I10 DASH diet, avoid ETOH, exercise. Monitor BP at home routinely and report excursions . Prediabetes 615832123 R7 3.03 Again emphasized low carb diet and exercise. Body mass index 25-29 - overweight 724588553 E66.3 74552660 Mixed hyperlipidemia 267 878066 E78.2 He is to continue the statin and the aspirin. [id number] Kari Pleitez[address] [address] 06/28/2025 10:14:48 06/28/2025 11:38:19 Hypoglycemia 580541700 E16.2 [id number] RTW on night 06/30/2025 [id number] [place] [id number] 07/01/2025 11:15:54 07/02/2025 10:57:06 [id number] [place] [address] 07/05/2025 12:57:11 07/05/2025 14:06:01 Hypoglycemia 925951466 E16.2 74280 Obtain and carry the prescribed glucose tablets Prediabetes 631183332 R7 3.03 024845 Again emphasized regular low carb diet and exercise. Hypertensive disorder 38 553384 I10 DASH diet, avoid ETOH, exercise. Monitor BP at home routinely and report excursions . Hyperinsulinism 23826541 E16.1 [id number] Off work for 2 weeks until seen by Endo, tentative RTW date will be 07/25/25. Begin 2 week CGM with [employer] [facility]. [id number] [place] [address] 08/03/2025 10:54:00 08/03/2025 11:58:02 Influenza vaccination given [id number] 9109 Z23 23828403 Hypoglycemia 153379018 E 16.2 23481 Obtain and carry the prescribed glucose tablets Health Concerns Section Related Observation LastModified by Organization Detai ls LastModified Time None Recorded Concern Status LastModified by Organization Details LastModified Time None Recorded Advance Directives Directive N: Payers Insurance Date Sequence Insurance Name Policy Number Policy Arizmendi Covered Member ID Arizmendi Member ID Guarantor Name 08/01/2025 1 [place] [id number] Tunde Paige [id number] Tunde Paige Notes Date Note Type Note Provider Name and Address Organization Details Recorded Time 5 text/htm l HyperlipidemiaReported by PatientHPIFor duration, [...] no complaints and feels well today. Kari Pleitez, REIMBURSEMENT LIAISON [address] [place], [address], [facility] [employer], [employer]. 04/20/2025 09:15:02 5 text/htm l ROS as [...] levels.Medical History- Prediabetes Kari Pleitez APRN [address] [place], [address], [place] [facility] [employer], [employer]. 06/28/2025 10:51:45 5 text/htm l ROS as [...] for dizziness.Endocrine: Positive for hypoglycemia episodes. Kari Pleitez APRN [address] [place], [address], [place] [facility] [employer] 07/05/2025 13:54:30
--- OUTSIDE RECORDS SUMMARY | 2025-08-08 08:04 | XMS_ITS | Continuity of Care Document ---
Author Organization MD - [employer] [facility], [place] Address [address] [place] [address] Assessment No assessment recorded. Plan of Treatment [...] Organization Detail LastModifiedTime 06/28/2006/28/2025 gluco se, finge rstic k, blood Blood Glucose: mg/dl 134 Not Available [address], [address], 06/28/2025 10:32:30 07/08/2007/08/2025 CT, head + brain , w/o contr ast No observ ation record ed. [email or web address] [place] [address], [place], [address], 07/11/2025 11:13:20 07/19/20 25 07/19/2025 US, doppl er echoc ardio gram No observ ation record ed. [facility] [address], [place], [address], 07/19/2025 12:09:00 Result Notes None recorded. Problems Name Problem SNOMED Code Status Onset Date Resolution Date Notes Provider Name and Address Organization Details Recorded Time Low back pain 057324658 Completed 201605/19/2020 Problem Code: M54.5; Problem Code Type: ICD-10; Not Available [facility] 22:48:45 Right side sciatica 21935159754 9101 Completed 201605/19/2020 Problem Code: M54.31; Problem Code Type: ICD-10; Not Available [facility] 22:48:47 Abdomina l pain 45433974 Completed 201902/13/2021 Problem Code: R10.9; Problem Code Type: ICD-10; Not Available [facility] 22:48:45 Nausea and vomiting 98607338 Completed 201907/06/2022 Problem Code: R11.2; Problem Code Type: ICD-10; CESAR reynolds, [employer] 07:55:25 Diarrhea 75098344 Completed 201907/06/2022 Problem Code: R19.7; Problem Code Type: ICD-10; CESAR reynolds, [employer] 07:55:26 Splenome gilberto 52547995 Active 2019 Problem Code: R16.1; Problem Code Type: ICD-10; Not Available [facility] 22:48:45 Diarrhea 40278929 Completed 201902/13/2021 Problem Code: R19.7; Problem Code Type: ICD-10; CESAR reynolds [employer] 07:55:26 Hyperten sive disorder 81960872 Active 2020 Problem Code: I10; Problem Code Type: ICD-10; Kari Pleitez APRN [address] [place] [address], [address] , [employer] 5 13:19:35 Pain in right knee Completed 202007/06/2022 Problem Code: M25.561; Problem Code Type: ICD-10; CESAR reynolds, [employer] 07:55:26 General examinat ion of patient Completed 202007/06/2022 CESAR reynolds, [employer] 07:55:25 Body mass index 30+ - obesity 786843646 Active 2020 Problem Code: Z68.30; Problem Code Type: ICD-10; Not Available [facility] 22:48:47 Disorder of upper respirat ory system 293400200 Completed 202007/06/2021 Problem Code: J06.9; Problem Code Type: ICD-10; Not Available [facility] 22:48:45 COVID-19 199050087 Completed 202007/06/2022 Problem Code: U07.1; Problem Code Type: ICD-10; CESAR reynolds, [employer] 07:55:26 Bronchop neumonia 231744473 Completed 202007/06/2022 Problem Code: J18.0; Problem Code Type: ICD-10; CESAR reynolds, [employer] 07:55:26 Almond lesion of lung 293205939 Completed 202007/06/2022 Problem Code: R91.1; Problem Code Type: ICD-10; CESAR reynolds, [employer] 07:55:26 Mixed hyperlip idemia 050386891 Active 2020 Problem Code: E78.2; Problem Code Type: ICD-10; Not Available [facility] 22:48:44 Influenz a vaccine needed 19547575515 06 Completed 202007/06/2022 Problem Code: Z23; Problem Code Type: ICD-10; CESAR reynolds, [employer] 09/24/202 2 07:55:25 Noninfec tious gastroen teritis 65590761 Completed 202107/06/2022 CESAR reynolds [employer] 2 07:55:25 Prediabe ej 924334274 Active 2023 Kari Pleitez, DUGLAS [address] [place] [address], [address] [place] [address] , [employer] 5 13:15:49 Body mass index 25-29 - overweig ht 608794435 Active 2024 Kari Pleitez, ANALYSIS ENGINEER [address] [place] [address], [address] [place] [address] , [employer] 5 08:10:40 Hypoglyc emia 014356701 Active 2024 Kari Pleitez, ANALYSIS ENGINEER [address] [place] [address], [address] [place] [address] , [employer] 5 10:34:25 Hyperins ulinism 53991912 Active 2024 Kari Pleitez, ANALYSIS ENGINEER [address] [place] [address], [address] [place] [address] , [employer] 5 13:19:21 Problem Notes None recorded. Procedures Surgical History Date Name Laterality Status Provider Name and Address Organization Details Recorded Time 11/20 Cerumen Removal completed LAURITA BYNUM [employer] 3 09:40:03 07/06 Cerumen Removal completed Kym Garibay PA-C [address] [place] [address], [address] , [employer] 2 09:08:27 07/21 esophagogastroduodenoscopy completed JOHAN LEIVA [employer] 2 07:58:09 Appendectomy completed CESAR LEIVA [employer] 2 07:57:06 Tonsillectomy completed CESAR LEIVA [employer] 2 07:57:19 Wrist arthroscopy/surgery completed [facility] [employer] 2 07:57:40 Back Surgery completed [facility] [employer] 2 07:57:50 Imaging Results None recorded. Procedure [...] oral route every 6 hours prn n/v 10/28/ 2020 05/04 /2021 completed Not Available Not Available Not [...] 07/01/2025 185.42 cm 120/74 mm[Hg] LAURITA BYNUM [employer]. 07/01/2025 11:37:02 Social History Question Answer Notes LastModified by Organizat ion Details LastModified Time Tobacco Smoking Status Never Smoker CESAR reynolds [employer] 07/06/2022 07:56:42 Do You Have An Advance Directive? No [email or web address] Information n ot available 07/06/2022 Is Your [...] Or The Highest Degree You Have Received? [id number] [email or web address] Information not available 07/06/2022 Who Is Your Employer? [employer] [email or web address] Information not available 07/06/2022 Do You Have A Medical Power Of Skirt Panel Assembler? No [email or web address] Information not available 07/06/2022 What Was The Date Of Your Most Recent Tobacco Screening? 08/03/2025 Information not available 08/03/2025 What Is Your Relationship Status? [email or web address] Information not available 07/06/2022 Do You Use [...] use any illicit or recreational drugs? No [email or web address] Information not available 07/06/2022 Do you or have you ever used any other forms of tobacco or nicotine? No Information not available 09/10/2023 What is your level of alcohol consumption? None [email or web address] Information not available 07/06/2022 Are you currently employed? Yes [email or web address] Information not available 07/06/2022 Do you have transportation difficulties? No Information not available 03/05/2023 Are you able to care for yourself independently? Yes Information not available 03/05/2023 Mental Status None recorded. Family History Relationship Description Onset Age of this Age Resolved Age Notes LastModified by Organization Details LastModified Time Father No current problems or disability [email or web address] Not available 07:55:43 Mother No current problems or disability [email or web address] Not available 07:55:43 Medical History Condition Response High Cholesterol Y Hypertension Y Immunizations Vaccine Type Date Status Note Provider Nam e and Address Organization Details Recorded Time COVID-19, mRNA, LNP-S, PF, 30 mcg/0.3 mL dose 1 completed LAURITA CARVALHONEAR null, [employer] 09/23/2022 10:12:04 COVID-19, mRNA, LNP-S, PF, 30 mcg/0.3 mL dose 1 completed LAURITA DEVENNEAR null, [facility] 09/23/2022 10:12:04 Td (adult), 2 Lf tetanus toxoid, preservative free, adsorbed 6 completed JUAN BARDALES null, [employer] 09/19/2022 10:39:21 Influenza, split virus, trivalent, PF 5 completed LAURITA MYNEAR null, [employer] 08/03/2025 11:26:29 Past Encounters Encounter ID Performer Location Encounter Start Date Encounter Closed Date Diagnosis/Indication Diagnosis SNOMED-CT Code Diagnosis ICD10 Code Diagnosis IMO Codes Diagnosis Note [id number] Kari Pleitez APRN [address] [address] 06/28/2025 10:14:48 06/28/2025 11:38:19 Hypoglycemia [id number] E16.2 [id number] RTW on 06/30/2025 [id number] Kari Pleitez APRN [address] [address] 07/01/2025 11:15:54 07/02/2025 10:57:06 Health Concerns Section Related Observation LastModified by Organization Detai ls LastModified Time None Recorded Concern Status LastModified by Organization Details LastModified Time None Recorded Payers Encounter Date Sequence Insurance Name Policy Number Policy Arizmendi Covered Member ID Arizmendi Member ID Guarantor Name 07/01/2025 1 [place] [id number] Tunde Paige [id number] Tunde Paige
--- NOTE | 2025-08-08 08:11 | PC.NURSE ---
0811-collected baseline acth and cortisol using venipuncture stick in left ac with butterfly needle; will give cortrosyn im injection when pharmacy brings it; next lab draw will be 30 mins after injection.
[2025-08-08 08:28] VITALS: BP 127/75; PULSE 68; RESP 18; O2SAT 98
[2025-08-08] MEDS: COSYNTROPIN 0.25 MG IM (08:28)
--- NOTE | 2025-08-08 09:40 | PC.NURSE ---
0910-collected 30 minute cortisol level using venipuncture stick in left ac with butterfly needle; pt to have 60min cortisol level drawn at 0940.
--- NOTE | 2025-08-08 11:39 | PC.NURSE ---
0940-collected 60 minute cortisol level at this time with venipuncture stick in left ac; pt to dc home at this time.
== END 2025-08-08 23:59 | disposition home or self-care (01) ==
PROVIDERS: PCP Nurse Practitioner Family; Visit Provider Student in an Organized Health Care Education/Training Program
DX: I10 Essential (primary) hypertension (principal); R94.31 Abnormal electrocardiogram [ECG] [EKG]; R79.89 Other specified abnormal findings of blood chemistry
CPT/HCPCS: 36415; 82024; 82533; 96372; J0834

== ENCOUNTER 2025-08-09 10:42 | Outpatient (CLI) | payer BC, SELFPAY ==
--- OUTSIDE RECORDS SUMMARY | 2025-08-09 10:46 | XMS_ITS | Clinical Summary ---
Author Organization [facility] [employer] ([place], [place], [place], [place]) Address [address] [place] [address] Care Team Providers Care Patrol Conductor Name Role Phone Kari Pleitez APRN Primary Care Provider + [phone] Allergies No known active allergies Medications rosuvastatin [...] Date Tariq rded Speak language other than Kinyarwanda at home Not on file 10/24/2023 Want [...] Health Maintenance Due Date Last Done Comments CT Colonography 1980 Colonoscopy 1980 Colorectal Cancer Screening 1980 FOBT/FIT 1980 Fit-DNA (Cologuard) 1980 Sigmoidoscopy 1980 Depression Screening (12+) 1992 HIV Screening 1995 Hepatitis C Screening 1998 Pneumococcal Vaccine: 0-49 Y ears (1 of 2 - PCV) 1999 DTAP/TDAP/TD VACCINES (2 - Td or Tdap) 05/11/2006 Tobacco Cessation Counseling and Screening (12+) 02/27/2024 02/26/2023 COVID-19 VACCINE (3 - season) 2025, 07/06/2021 Influenza Vaccine (#1) 2025 Lipid Panel 02/27/2026 02/27/2023 Procedures Procedure Name Priority Date/Time Associated Diagnosis Comments LIPID PANEL Routine 02/27/2023 6:38 AM EDT from Last 3 Months or Most Recently Relevant to Health Maintenance Results * (ABNORMAL) Lipid panel (02/27/2023 6:38 AM EDT) Pathologist [facility] Triglycerides 247 0 - 249 mg/dL 02/27/2023 7:36 AM EDT [facility] Cholesterol 147 0 - 199 mg/dL 02/27/2023 7:36 AM EDT [facility] Comment: 200 to 239 mg/dL = Moderate (borderline) >239 mg/dL = High HDL Cholesterol 27(L) >=40 mg/dL 02/27/2023 7:36 AM EDT [facility] Comment: >=60 mg/dL = Desirable <40 mg/dL = Increased Risk All other components are listed individually or are calculations VLDL Cholesterol 49.4(H) 5 - 40 mg/dL 02/27/2023 7:36 AM EDT [facility] Cholesterol/HDL ratio 5.4(H) 0.0 - 3.2 02/27/2023 7:36 AM EDT [facility] LDl/HDL Ratio 3 0 - 4 02/27/2023 7:36 AM EDT [facility] RISK COMP 5 02/27/2023 7:36 AM EDT [facility] LDL Cholesterol, Calculated 71 0 - 99 mg/dL 02/27/2023 7:36 AM EDT [facility] Blood Venipuncture / Unknown 02/27/2023 6:38 AM EDT 02/27/2023 7:09 AM EDT Jean Conde MD LAB BLOOD ORDERABLES Final Resu lt [facility] [address] [phone] from Last 3 Months or Most Recently Relevant to Health Maintenance Insurance BLUE CROSS/BLUE SHIELD Advance Directives For more information, please contact: [phone] * Full Code (Latest Code Status on File) Date Activated Date Inactivated Comments 02/26/2023 9:54 AM 02/27/2023 4:56 PM Care Teams Patrol Conductor Relationship Specialty Start Date End Date Kari Pleitez, LOGISTICS OPERATIONS DIRECTOR [address] [place] [address] PCP - General Family Medicine 02/25/23
--- OUTSIDE RECORDS SUMMARY | 2025-08-09 10:46 | XMS_ITS | Referral Summary ---
Author Organization [employer] ([place], [place], [place], [place]) Address [address] [place] [address] Care Team Providers Care Contract Agent Name Role Phone Kari Pleitez APRN Primary Care Provider + [phone] Allergies No known active allergies Medications rosuvastatin [...] Date Tariq rded Speak language other than Estonian at home Not on file 10/24/2023 Want [...] - 249 mg/dL 02/27/2023 7:36 AM EDT [facility] Cholesterol 147 0 - 199 mg/dL 02/27/2023 7:36 AM EDT [facility] Comment: 200 to 239 mg/dL = Moderate (borderline) >239 mg/dL = High HDL Cholesterol 27(L) >=40 mg/dL 02/27/2023 7:36 AM EDT [facility] Comment: >=60 mg/dL = Desirable <40 mg/dL = Increased Risk All other components are listed individually or are calculations VLDL Cholesterol 49.4(H) 5 - 40 mg/dL 02/27/2023 7:36 AM EDT [facility] Cholesterol/HDL ratio 5.4(H) 0.0 - 3.2 02/27/2023 7:36 AM EDT [facility] LDl/HDL Ratio 3 0 - 4 02/27/2023 7:36 AM EDT [facility] RISK COMP 5 02/27/2023 7:36 AM EDT [facility] LDL Cholesterol, Calculated 71 0 - 99 mg/dL 02/27/2023 7:36 AM EDT [facility] Blood Venipuncture / Unknown 02/27/2023 6:38 AM EDT 02/27/2023 7:09 AM EDT Jean Conde MD LAB BLOOD ORDERABLES Final Resu lt [facility] [address] [place] [address], [facility] [phone] from Last 3 Months or Most Recently Relevant to Health Maintenance Insurance [employer] CROSS/BLUE SHIELD Advance Directives For more information, please contact: [phone] * Full Code (Latest Code Status on File) Date Activated Date Inactivated Comments 02/26/2023 9:54 AM 02/27/2023 4:56 PM Care Teams Contract Agent Relationship Specialty Start Date End Date Kari Pleitez, DJANGO DEVELOPER [address] [place] [address] PCP - General Family Medicine 02/25/23
--- OUTSIDE RECORDS SUMMARY | 2025-08-09 10:46 | XMS_ITS | Clinical Summary ---
[facility] Address [address] [place] [address] Care Team Providers Care Collections Curator Name Role Phone Maik Kari DUGLAS Primary Care Provider [phone] Social History Tobacco Use Types Packs/Day Years [...] complete this topic Insurance PPO Care Teams Collections Curator Relationship Specialty Start Date End Date Kari Pleitez APRN [address] [place] [address] PCP - General Nurse Practitioner 03/17/23
--- NOTE | 2025-08-09 11:00 | CA_ITS ---
APPROVED REPORT Exam: Exercise Treadmill Technologist: Miranda Love Ht: 6 ft 0 in Wt: 222 lbs BSA: 2.23 m2 HR: 62 bpm BP: 142/91 mmHg Indications: Dizziness, Abnormal EKG, Bradycardia Stress Test Details Test: Exercise stress testing was performed using a Yonis protocol. HR Resting HR: 62 bpm Max Heart Rate (APMHR): 175.937016 bpm Max HR Achieved: 151 bpm Target HR (85% APMHR): 148.054777 bpm % of APMHR: 86.29 Recovery HR: 92 bpm BP Resting BP: 142.0/91.0 mmHg Max BP: 190.0/88.0 mmHg Recovery BP: 144.0/94.0 mmHg ECG Stress ECG Conclusion Symptoms: None Arrhythmias/Ectopy: PVC ST-T Changes: Less than 0.[address] segment changes. Electronically signed by : Iva Gant MD 08/10/2025 00:11:02
[2025-08-09 11:52] LABS: POC Glucose,Bedside 119 gm/dL (70-110)
[2025-08-09 12:15] VITALS: BP 142/91; PULSE 62; RESP 14
--- NOTE | 2025-08-09 12:25 | PC.NURSE ---
1115-walking patient out to front [facility] for discharge, patient became dizzy and started feeling bad. Escorted patient back to stress room, patient states he feels like his bloodsugar was low. Patient requested orange juice. 11:26BP 146/84 HR 86 [facility] PAC notified of patient condition, order to check fingerstick glucose, if greater than 100 ok to discharge if patient feels ok. 11:34 Fingerstick glucose 119, feels good, dizziness resolved. 11:45 Escorted patient to front [facility] for discharge.
== END 2025-08-09 23:59 | disposition home or self-care (01) ==
LOC: RT 10:43
PROVIDERS: PCP Nurse Practitioner Family; Visit Provider Physician Assistant
DX: I49.3 Ventricular premature depolarization (principal); R94.31 Abnormal electrocardiogram [ECG] [EKG]; R00.1 Bradycardia, unspecified; I10 Essential (primary) hypertension; R42 Dizziness and giddiness
CPT/HCPCS: 82962; 93017; 93018

== ENCOUNTER 2025-08-24 08:05 | Inpatient (IN) | payer BC, SELFPAY ==
--- OUTSIDE RECORDS SUMMARY | 2025-08-24 08:08 | XMS_ITS | Clinical Summary ---
[facility] [address] [place] [address] Care Team Providers Care Rvda Master Certified Rv Technician Name Role Phone Maik Kari DUGLAS Primary [...] complete this topic Insurance PPO Care Teams Rvda Master Certified Rv Technician Relationship Specialty Start Date End Date Kari Pleitez APRN [address] [place] [address] PCP - General Nurse Practitioner 03/17/23
--- OUTSIDE RECORDS SUMMARY | 2025-08-24 08:08 | XMS_ITS | Continuity of Care Document ---
Author Organization OR - [employer] [facility] Address [address] [place] [address] Assessment Encounter Date Assessment Date Assessment LastModified by Organization Details LastModified Time 08/03/2025 08/03/2025 Tunde Paige presented for follow-up of severe hypoglycemia requiring hospitalization. He experiences recurrent hypoglycemic episodes with morning glucose readings in the 60s, dropping back to 60s approximately every 1.5 hours after meals, requiring hourly eating to maintain levels. He was recently hospitalized when glucose dropped into the 50s. Endocrinology suspects excess insulin production. Management includes frequent glucose monitoring, continued FMLA from work, scheduled stimulation testing for insulin/cortisol evaluation, and a cardiac stress test on August 19. Not available 08/13/2025 16:48:51 Plan of Treatment Reminders Order Date Submit [...] Abnormal Flag Note LastModifiedBy Organization Detail LastModifiedTime 07/05/2007/05/2025 haile renae se, blood Blood Glucose: mg/dl 88 Not Available [facility] - [address], [place], [address], 07/05/2025 13:14:12 07/08/20 25 07/08/2025 CT, head + brain , w/o contr ast No observ ation record ed. [email or web address] [facility] [address], [place], [address], 07/11/2025 11:13:20 07/19/20 25 07/19/2025 US, doppl er echoc ardio gram No observ ation record ed. [facility] [address], [place], [address], 07/19/2025 12:09:00 08/10/2008/09/2025 exerc ise stres s test No observ ation record ed. [facility] [address], [place], [address], 08/10/2025 08:19:26 Result Notes None recorded. Problems Name Problem SNOMED Code Status Onset Date Resolution Date Notes Provider Name and Address Organization Details Recorded Time Low back pain 055212562 Completed 201605/19/2020 Problem Code: M54.5; Problem Code Type: ICD-10; Not Available [facility] 22:48:45 Right side sciatica 97802910602 9101 Completed 201605/19/2020 Problem Code: M54.31; Problem Code Type: ICD-10; Not Available [facility] 22:48:47 Abdomina l pain 56493075 Completed 201902/13/2021 Problem Code: R10.9; Problem Code Type: ICD-10; Not Available [facility] 22:48:45 Nausea and vomiting 87823139 Completed 201907/06/2022 Problem Code: R11.2; Problem Code Type: ICD-10; CESAR reynolds [employer]. 07:55:25 Diarrhea 27913385 Completed 201907/06/2022 Problem Code: R19.7; Problem Code Type: ICD-10; CESAR reynolds [employer] 2 07:55:26 Gerardo macias 38706828 Active 2019 Problem Code: R16.1; Problem Code Type: ICD-10; Not Available [facility] 2 22:48:45 Diarrhea 95933715 Completed 201902/13/2021 Problem Code: R19.7; Problem Code Type: ICD-10; CESAR reynolds, [employer] 2 07:55:26 Hyperten sive disorder 70521492 Active 2020 Problem Code: I10; Problem Code Type: ICD-10; Kari Pleitez, REGIONAL COORDINATOR [address] [place] [address], [address] , [employer]. 5 13:19:35 Pain in right knee Completed 202007/06/2022 Problem Code: M25.561; Problem Code Type: ICD-10; CESAR reynolds, [employer]. 2 07:55:26 General examinat ion of patient Completed 202007/06/2022 CESAR reynolds, [employer]. 2 07:55:25 Body mass index 30+ - obesity 420080015 Active 2020 Problem Code: Z68.30; Problem Code Type: ICD-10; Not Available [facility] 2 22:48:47 Disorder of upper respirat ory system 615738224 Completed 202007/06/2021 Problem Code: J06.9; Problem Code Type: ICD-10; Not Available [facility] 2 22:48:45 COVID-19 658288290 Completed 202007/06/2022 Problem Code: U07.1; Problem Code Type: ICD-10; CESAR reynolds, [employer] 2 07:55:26 Bronchop neumonia 500036030 Completed 202007/06/2022 Problem Code: J18.0; Problem Code Type: ICD-10; CESAR reynolds, [employer]. 2 07:55:26 [place] lesion of lung 441181329 Completed 202007/06/2022 Problem Code: R91.1; Problem Code Type: ICD-10; CESAR reynolds, [employer] 07:55:26 Mixed hyperlip idemia 951798028 Active 2020 Problem Code: E78.2; Problem Code Type: ICD-10; Not Available [facility] 22:48:44 Influenz a vaccine needed 18204487529 06 Completed 202007/06/2022 Problem Code: Z23; Problem Code Type: ICD-10; CESAR reynolds, [employer] 07:55:25 Noninfec tious gastroen teritis 50413714 Completed 202107/06/2022 CESAR reynolds, [employer]. 07:55:25 Prediabe ej 323536475 Active 2023 Kari Pleitez APRN [address] [place] [address], [address] , [employer] 13:15:49 Body mass index 25-29 - overweig ht 183055805 Active 2024 Kari Pleitez APRN [address] [place] [address], [address] , [employer] 08:10:40 Hypoglyc emia 150227243 Active 2024 Kari Pleitez APRN [address] [place] [address], [address] , [employer] 10:34:25 Hyperins ulinism 54005176 Active 2024 Kari Pleitez APRN [address] [place] [address], [address] , [employer] 5 13:19:21 Problem Notes None recorded. Procedures Surgical History Date Name Laterality Status Provider Name and Address Organization Details Recorded Time 11/20 Cerumen Removal completed LAURITA BYNUM [employer] 3 09:40:03 07/06 Cerumen Removal completed Kym Garibay PA-C [address] [place] [address], [address] , [employer], [employer]. 2 09:08:27 07/21 esophagogastroduodenoscopy completed [place] B[place] [employer]. 2 07:58:09 Appendectomy completed [employer] [employer]. 2 07:57:06 Tonsillectomy completed [employer]. 2 07:57:19 Wrist arthroscopy/surgery completed [facility]. 2 07:57:40 Back Surgery completed [employer]. 2 07:57:50 Imaging Results None recorded. Procedure [...] Updated DateTime 5 185.42 cm 29.8 kg/m2 364233. 88 g 98.2 [degF] 83 /min 95 % 95 % 134/78 mm[Hg] LAURITA BYNUM [employer]. 11:20:35 Social History Question Answer Notes LastModified by Organizat ion Details LastModified Time Tobacco Smoking Status Never Smoker CESAR reynolds, [employer]. 07/06/2022 07:56:42 Do You Have An Advance Directive? No [email or web address] Information n ot available 07/06/2022 Is Your [...] Or The Highest Degree You Have Received? [id number] [email or web address] Information not available 07/06/2022 Who Is Your Employer? [employer] [email or web address] Information not available 07/06/2022 Do You Have A Medical Power Of Skein [employer]? No Information not available 07/06/2022 What Was The Date Of Your Most Recent Tobacco Screening? 08/03/2025 Information not available 08/03/2025 What Is Your Relationship Status? [email or web address] Information not available 07/06/2022 Do You Use [...] use any illicit or recreational drugs? No [email or web address] Information not available 07/06/2022 Do you or have you ever used any other forms of tobacco or nicotine? No Information not available 09/10/2023 What is your level of alcohol consumption? None [email or web address] Information not available 07/06/2022 Are you currently employed? Yes [email or web address] Information not available 07/06/2022 Do you have transportation difficulties? No Information not available 03/05/2023 Are you able to care for yourself independently? Yes Information not available 03/05/2023 Mental Status None recorded. Family History Relationship Description Onset Age of this Age Resolved Age Notes LastModified by Organization Details LastModified Time Father No current problems or disability [email or web address] Not available 07:55:43 Mother No current problems or disability [email or web address] Not available 07:55:43 Medical History Condition Response High Cholesterol Y Hypertension Y Immunizations Vaccine Type Date Status Note Provider Parker robbins and Address Organization Details Recorded Time COVID-19, mRNA, LNP-S, PF, 30 mcg/0.3 mL dose completed [facility]olds [facility] 09/23/2022 10:12:04 COVID-19, mRNA, LNP-S, PF, 30 mcg/0.3 mL dose 1 completed LAURITACONOR BYNUM null, [place] [facility] [employer] 09/23/2022 10:12:04 Td (adult), 2 Lf tetanus toxoid, preservative free, adsorbed 6 completed JUAN BARDALES null, [place] [facility] [employer] 09/19/2022 10:39:21 Influenza, split virus, trivalent, PF 5 completed LAURITA DEVENNEARashmi null, [facility] 08/03/2025 11:26:29 Past Encounters Encounter ID Performer Location Encounter Start Date Encounter Closed Date Diagnosis/Indication Diagnosis SNOMED-CT Code Diagnosis ICD10 Code Diagnosis IMO Codes Diagnosis Note [id number] [place] [address] 07/05/2025 12:57:11 07/05/2025 14:06:01 Hypoglycemia 744947729 E16.2 84753 Obtain and carry the prescribed glucose tablets Prediabetes 614281198 R7 3.03 378565 Again emphasized regular low carb diet and exercise. Hypertensive disorder 38 064907 I10 DASH diet, avoid ETOH, exercise. Monitor BP at home routinely and report excursions . Hyperinsulinism 46645666 E16.1 3833665 Off work for 2 weeks until seen by Endo, tentative RTW date will be 07/25/25. Begin 2 week CGM with [employer]. [id number] [place] [address] 08/03/2025 10:54:00 08/03/2025 11:58:02 Influenza vaccination given 8907668601 9109 Z23 14423132 Hypoglycemia 212463019 E 16.2 82349 Obtain and carry the prescribed glucose tablets Health Concerns Section Related Observation LastModified by Organization Detai ls LastModified Time None Recorded Concern Status LastModified by Organization Details LastModified Time None Recorded Payers Encounter Date Sequence Insurance Name Policy Number Policy Arizmendi Covered Member ID Arizmendi Member ID Guarantor Name 08/03/2025 1 [place] [facility] [place] [id number] Tunde Paige [id number] Tunde Paige Notes Date Note Type Note Provider Name and Address Organization Details Recorded Time 08/03/2025 text/html ROS as noted in the HPI Chief ComplaintFollow-up for hypoglycemic episode in hospital with blood sugar dropping into the fifties, ongoing hypoglycemic episodes with blood sugar readings in the sixties in mornings and by lunchtime requiring eating every hour to hour and a half to maintain glucose levelsHistory of Present IllnessTunde Paige is a patient with recent hypoglycemia who was admitted to the hospital by endocrinology for an episode where his blood sugar dropped into the fifties. During hospitalization, a finger stick reading showed low glucose assumed below 50, with the monitor reading to 40, prompting blood draw and glucose administration. The episode occurred within 3 days after he started fasting Friday night through Friday morning, and he experienced symptoms of hunger during this time.For the past two weeks prior to hospitalization, he has been eating every hour or so, consuming candy and tablets to manage his symptoms. Since returning home from the hospital, he has been monitoring his blood glucose 7-8 times daily as directed by endocrinology, sometimes checking more than 5 times. His readings show a consistent pattern with morning values in the sixties, post-meal readings of 110-120, and return to the sixties by lunchtime. This pattern repeats approximately every hour and a half, with glucose levels only increasing when he eats something.He experienced one minor hypoglycemic episode at home where both his Dexcom monitor and finger stick showed low readings, accompanied by fatigue. He has had difficulty with continuous glucose monitoring, as the first Dexcom came off, the second one caused bleeding, and the third one displayed unavailable. The printing bindery assistant has discussed excess insulin production and cortisol as potential contributing factors to his hypoglycemia.He also saw cardiology during his hospitalization for an echocardiogram. 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 He received a flu vaccination today and is currently on FMLA from work. Kari Pleitez APRN [address] [place], [address], [facility] 08/13/2025 16:50:21
--- OUTSIDE RECORDS SUMMARY | 2025-08-24 08:09 | XMS_ITS | Continuity of Care Document ---
Author Organization [employer] [facility] Address [address] [place] [address] Assessment Encounter Date Assessment Date Assessment LastModified [...] monitor for 2 weeks - Refer to technical project coordinator, Dr. 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 Plan: - Implement continuous glucose monitoring for 2 weeks to gather data for endocrinology appointment - Educate on regular meal timing and protein intake to stabilize blood glucose - Follow up with technical project coordinator for comprehensive diabetes management plan Not available 07/05/2025 13:53:48 Plan of Treatment Reminders Order Date Submit Date Provider Last Modified By Organization Details Last Modified Time Details Appointments ANNUAL EXAM 2025 08:00A M Lauren. DUGLAS Pleitez Not available Not available Not available Lab glucose, fingersti ck, blood 2024 025 [facility], [address] [place] [address], [address], 07/05/2025 13:39:44 Referral endocrino logy referral - first available appt 2024 025 JANICE Ebony Morris MD, [address], [place], [address], 07/13/2025 15:11:03 Procedures None recorded. Surgeries None recorded. Imaging None recorded. Medication Orders glucose 4 gram chewable tablet 2024 025 [facility], [address] [place] [address], [address], 07/05/2025 15:15:05 Patient TargetsNo targets recorded. Patient InstructionsNo instructions recorded. Reason for Referral Endocrinology Referral for H [email or web address] first available appt Referring Physician: Kari Pleitez, Family Medicine, Encounter Date: 07/05/2025 Results Created Date Observation Date Name Description Value Unit Range Abnormal Flag Note LastModifiedBy Organization Detail LastModifiedTime 06/28/2006/28/2025 gluco sehaile, blood Blood Glucose: mg/dl 134 Not Available [address], [address], 06/28/2025 10:32:30 07/05/2007/05/2025 gluco se, jessicae rstic k, blood Blood Glucose: mg/dl 88 Not Available [address], [place], [address], 07/05/2025 13:14:12 07/08/20 25 07/08/2025 CT, head + brain , w/o contr ast No observ ation record ed. [email or web address] [facility] [address], [place], [address], 07/11/2025 11:13:20 07/19/2007/19/2025 US, doppl er echoc ardio gram No observ ation record ed. [facility] [address], [place], [address], 07/19/2025 12:09:00 08/10/2008/09/2025 exerc ise stres s test No observ ation record ed. [facility] [address], [place], [address], 08/10/2025 08:19:26 Result Notes None recorded. Problems Name Problem SNOMED Code Status Onset Date Resolution Date Notes Provider Name and Address Organization Details Recorded Time Low back pain 071151067 Completed 201605/19/2020 Problem Code: M54.5; Problem Code Type: ICD-10; Not Available Counts include 234 beds at the [facility] 22:48:45 Right side sciatica 29589132262 9101 Completed 201605/19/2020 Problem Code: M54.31; Problem Code Type: ICD-10; Not Available Counts include 234 beds at the [facility] 22:48:47 Abdomina l pain 63565866 Completed 201902/13/2021 Problem Code: R10.9; Problem Code Type: ICD-10; Not Available Counts include 234 beds at the [facility] 22:48:45 Nausea and vomiting 00988839 Completed 201907/06/2022 Problem Code: R11.2; Problem Code Type: ICD-10; CESAR reynolds, [employer] 2 07:55:25 Diarrhea 15150801 Completed 201907/06/2022 Problem Code: R19.7; Problem Code Type: ICD-10; CESAR reynolds, [employer] 2 07:55:26 Gerardo macias 49880958 Active 2019 Problem Code: R16.1; Problem Code Type: ICD-10; Not Available [facility] 2 22:48:45 Diarrhea 10512364 Completed 201902/13/2021 Problem Code: R19.7; Problem Code Type: ICD-10; CESAR reynolds, [employer] 2 07:55:26 Hyperten sive disorder 06416176 Active 2020 Problem Code: I10; Problem Code Type: ICD-10; Kari Pleitez APRN [address] [place] [address], [address] , [employer]. 5 13:19:35 Pain in right knee Completed 202007/06/2022 Problem Code: M25.561; Problem Code Type: ICD-10; CESAR reynolds, [employer] 2 07:55:26 General examinat ion of patient Completed 202007/06/2022 CESAR reynolds, [employer] 2 07:55:25 Body mass index 30+ - obesity 978651418 Active 2020 Problem Code: Z68.30; Problem Code Type: ICD-10; Not Available [facility] 22:48:47 Disorder of upper respirat ory system 956364734 Completed 202007/06/2021 Problem Code: J06.9; Problem Code Type: ICD-10; Not Available [facility] 22:48:45 COVID-19 245571515 Completed 202007/06/2022 Problem Code: U07.1; Problem Code Type: ICD-10; CESAR reynolds, [employer] 2 07:55:26 Bronchop neumonia 262184895 Completed 202007/06/2022 Problem Code: J18.0; Problem Code Type: ICD-10; CESAR reynolds, [employer] 2 07:55:26 [place] lesion of lung 676971539 Completed 202007/06/2022 Problem Code: R91.1; Problem Code Type: ICD-10; CESAR reynolds, [employer] 2 07:55:26 Mixed hyperlip idemia 294625035 Active 2020 Problem Code: E78.2; Problem Code Type: ICD-10; Not Available [facility] 2 22:48:44 Influenz a vaccine needed 69396656235 06 Completed 202007/06/2022 Problem Code: Z23; Problem Code Type: ICD-10; CESAR reynolds, [employer] 2 07:55:25 Noninfec tious gastroen teritis 92104581 Completed 202107/06/2022 CESAR reynolds, [employer] 2 07:55:25 Prediabe ej 814089579 Active 2023 Kari Pleitez APRN [address] [place] [address], [address] , [employer] 5 13:15:49 Body mass index 25-29 - overweig ht 260498678 Active 2024 Kari Pleitez APRN [address] [place] [address], [address] , [employer] 5 08:10:40 Hypoglyc emia 612646150 Active 2024 Kari Pleitez APRN [address] [place] [address], [address] , [employer] 5 10:34:25 Hyperins ulinism 83220770 Active 2024 Kari Pleitez APRN [address] [place], [address] , [employer] 5 13:19:21 Problem Notes None recorded. Procedures Surgical History Date Name Laterality Status Provider Name and Address Organization Details Recorded Time 11/20 Cerumen Removal completed LAURITA BYNUM [employer] 3 09:40:03 07/06 Cerumen Removal completed Kym Garibay PA-C [address] [place], [place], [address] [place] [address] , [employer] 2 09:08:27 07/21 esophagogastroduodenoscopy completed JOHAN BAY LEIVA [employer] 2 07:58:09 Appendectomy completed CESAR [employer]. 2 07:57:06 Tonsillectomy completed [employer]. 2 07:57:19 Wrist arthroscopy/surgery completed [facility] 2 07:57:40 Back Surgery completed [employer]. 2 07:57:50 Imaging Results None recorded. Procedure [...] Updated DateTime 5 185.42 cm 29.3 kg/m2 236673. 22 g 99 [degF] 90 /min 96 % 96 % 125/78 mm[Hg] LAURITA BYNUM [employer]. 5 13:13:38 Social History Question Answer Notes LastModified by Organizat ion Details LastModified Time Tobacco Smoking Status Never Smoker CESAR reynolds, [employer]. 07/06/2022 07:56:42 Do You Have An Advance Directive? No [email or web address] Information n ot available 07/06/2022 Is Your [...] Or The Highest Degree You Have Received? [id number] Information not available 07/06/2022 Who Is Your Employer? 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 08/03/2025 Information not available 08/03/2025 What Is Your Relationship Status? [email or web address] Information not available 07/06/2022 Do You Use [...] use any illicit or recreational drugs? No [email or web address] Information not available 07/06/2022 Do you or have you ever used any other forms of tobacco or nicotine? No Information not available 09/10/2023 What is your level of alcohol consumption? None [email or web address] Information not available 07/06/2022 Are you currently employed? Yes [email or web address] Information not available 07/06/2022 Do you have transportation difficulties? No Information not available 03/05/2023 Are you able to care for yourself independently? Yes Information not available 03/05/2023 Mental Status None recorded. Family History Relationship Description Onset Age of this Age Resolved Age Notes LastModified by Organization Details LastModified Time Father No current problems or disability Not available 07:55:43 Mother No current problems or disability Not available 07:55:43 Medical History Condition Response High Cholesterol Y Hypertension Y Immunizations Vaccine Type Date Status Note Provider Nam e and Address Organization Details Recorded Time COVID-19, mRNA, LNP-S, PF, 30 mcg/0.3 mL dose 1 completed LAURITA DEVENNEAR null, [employer] 09/23/2022 10:12:04 COVID-19, mRNA, LNP-S, PF, 30 mcg/0.3 mL dose 1 completed LAURITA DEVENNEAR null, [employer] 09/23/2022 10:12:04 Td (adult), 2 Lf tetanus toxoid, preservative free, adsorbed 6 completed JUAN BARDALES null, [employer]. 09/19/2022 10:39:21 Influenza, split virus, trivalent, PF 5 completed LAURITA DEVENNEAR null, [employer] 08/03/2025 11:26:29 Past Encounters Encounter ID Performer Location Encounter Start Date Encounter Closed Date Diagnosis/Indication Diagnosis SNOMED-CT Code Diagnosis ICD10 Code Diagnosis IMO Codes Diagnosis Note [id number] [place] [phone] 06/28/2025 10:14:48 06/28/2025 11:38:19 Hypoglycemia 176221214 E16.2 28990 RTW on night 06/30/[id number] [address] 07/01/2025 11:15:54 07/02/2025 10:57:[id number] [address] 07/05/2025 12:57:11 07/05/2025 14:06:01 Hypoglycemia 902082490 E16.2 94808 Obtain and carry the prescribed glucose tablets Prediabetes 230512598 R7 3.03 109198 Again emphasized regular low carb diet and exercise. Hypertensive disorder 38 037482 I10 DASH diet, avoid ETOH, exercise. Monitor BP at home routinely and report excursions . Hyperinsulinism 06838593 E16.1 7349229 Off work for 2 weeks until seen by Janis, tentative RTW date will be 07/25/25. Begin 2 week CGM with [employer]. Health Concerns Section Related Observation LastModified by Organization Detai ls LastModified Time None Recorded Concern Status LastModified by Organization Details LastModified Time None Recorded Payers Encounter Date Sequence Insurance Name Policy Number Policy Arizmendi Covered Member ID Arizmendi Member ID Guarantor Name 07/05/2025 1 [place] [id number] Tunde Paige [id number] Tunde Paige Notes Date Note Type Note [...] impacting his ability to work, necessitating time off. Concurrent with the blood sugar fluctuations, Tunde has [...] for hypoglycemia episodes. Kari Pleitez, DUGLAS [address] [place], [address], [facility] [employer] 07/05/2025 13:54:30
--- OUTSIDE RECORDS SUMMARY | 2025-08-24 08:09 | XMS_ITS | Data Portability ---
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 Plan: - Implement continuous glucose monitoring for 2 weeks to gather data for endocrinology appointment - Educate on regular meal timing and protein intake to stabilize blood glucose - Follow up with lab instructor for comprehensive diabetes management plan Not available 07/05/2025 13:53:48 08/03/2025 08/03/2025 Tunde Paige presented for follow-up [...] Time Details Appointments ANNUAL EXAM 2025 08:00A Ralph Pleitez, PEDIATRIC DERMATOLOGIST Not available Not available Not available Lab glucose, fingersti ck, blood [address], [address], 07/05/2025 13:39:44 glucose, fingersti ck, blood [address], [address], 06/28/2025 10:39:29 C-peptide , serum 2024 025 [place] [facility] [place], [address], 06/29/2025 12:10:10 HbA1c (hemoglob in A1c), blood 2024 025 [facility] ([facility]), [address] [place] [address], [address], 06/29/2025 12:10:11 CBC w/ auto diff 2024 025 [facility] ([facility]), [address] [place], [address], 06/29/2025 12:10:09 BMP, serum or plasma 2024 025 [facility] ([facility]), [address] [place] [address], [address], 06/29/2025 12:10:09 CMP, serum or plasma 2024 025 [facility] ([facility]), [address] [place] [address], [address], 04/21/2025 08:11:12 CBC w/ auto diff 2024 025 [facility] ([facility]), [address] [place] [address], [address], 04/21/2025 08:11:10 lipid panel, serum 2024 025 [facility]), [facility] [place], [address], 04/21/2025 08:11:12 HbA1c (hemoglob in A1c), blood 2024 025 [facility]), [facility] [place], [address], 04/21/2025 08:11:13 TSH, ultra-sen sitive, serum 2024 025 [facility]), [facility] [place], [address], 04/21/2025 08:11:14 Referral endocrino logy referral - first available appt 2024 025 JANICE Morris MD, [address], [place], [address], 07/13/2025 15:11:03 Procedures None recorded. Surgeries None recorded. Imaging None recorded. Medication Orders glucose 4 gram chewable tablet 2024 025 [facility], [address] [place] [address], [address], 07/05/2025 15:15:05 glucose 4 gram chewable tablet 2024 025 [facility], [address] [place] [address], [address], 07/05/2025 13:54:27 rosuvasta tin 20 mg tablet 2024 025 [facility], [address] [place] [address], [address], 06/09/2025 10:54:15 lisinopri l 10 mg-hydroc hlorothia zide 12.5 mg tablet 2024 025 [facility], [address] [place] [address], [place], [address], 06/09/2025 10:54:11 Patient TargetsNo targets recorded. Patient [...] /uL 3.4-10 .8 normal Not Available [facility] ([facility]) [address] [facility], [place], [address], 04/21/2025 08:11:10 04/20/2004/21/2025 CBC WITH DIFFE RENTI AL/PL ATELE T RBC 4.79 x10e6 /uL 4.14-5 .80 normal Not Available [facility] ([facility]) [address] [facility], [place], [address], 04/21/2025 08:11:10 04/20/20 25 04/21/2025 CBC WITH DIFFE RENTI AL/PL ATELE T hemoglobin 14.6 g/dL 13.0-1 7.7 normal Not Available [facility] ([facility]) [address] [place], [address], 04/21/2025 08:11:10 04/20/20 25 04/21/2025 CBC WITH DIFFE RENTI AL/PL ATELE T hematocrit 46.6 % 37.5-5 1.0 normal Not Available [facility] ([facility]) [address] [place], [address], 04/21/2025 08:11:10 04/20/20 25 04/21/2025 CBC WITH DIFFE RENTI AL/PL ATELE T MCV 97 fL 79-97 normal Not Available [facility] ([facility]) [address] [place], [address], 04/21/2025 08:11:10 04/20/20 25 04/21/2025 CBC WITH DIFFE RENTI AL/PL ATELE T MCH 30.5 pg 26.6-3 3.0 normal Not Available [facility] ([facility]) [address] [facility], [place], [address], 04/21/2025 08:11:10 04/20/20 25 04/21/2025 CBC WITH DIFFE RENTI AL/PL ATELE T MCHC 31.3 g/dL 31.5-3 5.7 below low normal Not Available [facility] ([facility]) [address] [facility], [place], [address], 04/21/2025 08:11:10 04/20/20 25 04/21/2025 CBC WITH DIFFE RENTI AL/PL ATELE T RDW 13.6 % 11.6-1 5.4 Not Available [facility] ([facility]) [address] [place], [address], 04/21/2025 08:11:10 04/20/20 25 04/21/2025 CBC WITH DIFFE RENTI AL/PL ATELE T platelets 277 x10e3 /uL 150-45 0 normal Not Available [facility] ([facility]) [address] [place], [address], 04/21/2025 08:11:10 04/20/20 25 04/21/2025 CBC WITH DIFFE RENTI AL/PL ATELE T neutrophils 50 % not estab. normal Not Available [facility] ([facility]) [address] [facility], [place], [address], 04/21/2025 08:11:10 04/20/20 25 04/21/2025 CBC WITH DIFFE RENTI AL/PL ATELE T lymphs 36 % not estab. normal Not Available [facility] ([facility]) [address] [place], [address], 04/21/2025 08:11:10 04/20/20 25 04/21/2025 CBC WITH DIFFE RENTI AL/PL ATELE T monocytes 7 % not estab. normal Not Available [facility] ([facility]) [address] [facility], [place], [address], 04/21/2025 08:11:10 04/20/20 25 04/21/2025 CBC WITH DIFFE RENTI AL/PL ATELE T eos 6 % not estab. normal Not Available [facility] ([facility]) [address] [facility], [place], [address], 04/21/2025 08:11:10 04/20/20 25 04/21/2025 CBC WITH DIFFE RENTI AL/PL ATELE T basos 1 % not estab. normal Not Available [facility] ([facility]) [address] [facility], [place], [address], 04/21/2025 08:11:10 04/20/20 25 04/21/2025 CBC WITH DIFFE RENTI AL/PL ATELE T immature cells GROCERY ASSOCIATE Not Available [facility] ([facility]) [address] [place], [address], 04/21/2025 08:11:10 04/20/20 25 04/21/2025 CBC WITH DIFFE RENTI AL/PL ATELE T neutrophils (absolute) 3.5 x10e3 /uL 1.4-7. 0 normal Not Available [facility] ([facility]) [address] [place], [address], 04/21/2025 08:11:10 04/20/20 25 04/21/2025 CBC WITH DIFFE RENTI AL/PL ATELE T lymphs (absolute) 2.6 x10e3 /uL 0.7-3. 1 normal Not Available [facility] ([facility]) [address] [facility], [place], [address], 04/21/2025 08:11:10 04/20/20 25 04/21/2025 CBC WITH DIFFE RENTI AL/PL ATELE T monocytes(ab solute) 0.5 x10e3 /uL 0.1-0. 9 normal Not Available [facility] ([facility]) [address] [facility], [place], [address], 04/21/2025 08:11:10 04/20/20 25 04/21/2025 CBC WITH DIFFE RENTI AL/PL ATELE T eos (absolute) 0.4 x10e3 /uL 0.0-0. 4 normal Not Available [facility] ([facility]) [address] [facility], [place], [address], 04/21/2025 08:11:10 04/20/20 25 04/21/2025 CBC WITH DIFFE RENTI AL/PL ATELE T baso (absolute) 0.1 x10e3 /uL 0.0-0. 2 normal Not Available [facility] ([facility]) [address] [facility], [place], [address], 04/21/2025 08:11:10 04/20/20 25 04/21/2025 CBC WITH DIFFE RENTI AL/PL ATELE T immature granulocytes 0 % not estab. Not Available [facility] ([facility]) [address] [facility], [place], [address], 04/21/2025 08:11:10 04/20/20 25 04/21/2025 CBC WITH DIFFE RENTI AL/PL ATELE T immature grans (abs) 0.0 x10e3 /uL 0.0-0. 1 Not Available [facility] ([facility]) [address] [facility], [place], [address], 04/21/2025 08:11:10 04/20/20 25 04/21/2025 CBC WITH DIFFE RENTI AL/PL ATELE T NRBC GROCERY ASSOCIATE Not Available [facility] ([facility]) [address] [facility], [place], [address], 04/21/2025 08:11:10 04/20/20 25 04/21/2025 CBC WITH DIFFE ROS AL/PL ATELE T hematology comments: GROCERY ASSOCIATE Not Available [facility] ([facility]) [address] [facility], [place], [address], 04/21/2025 08:11:10 04/20/20 25 04/21/2025 COMP. METAB OLIC PANEL (14) glucose 104 mg/dL 70-99 above high normal Not Available [facility] ([facility]) [address] [facility], [place], [address], 04/21/2025 08:11:12 04/20/20 25 04/21/2025 COMP. METAB OLIC PANEL (14) BUN 8 mg/dL 6-24 normal Not Available [facility] ([facility]) [address] [facility], [place], [address], 04/21/2025 08:11:12 04/20/20 25 04/21/2025 COMP. METAB OLIC PANEL (14) creatinine 0.81 mg/dL 0.76-1 .27 normal Not Available [facility] ([facility]) [address] [facility], [place], [address], 04/21/2025 08:11:12 04/20/20 25 04/21/2025 COMP. METAB OLIC PANEL (14) eGFR 111 mL/mi n/1.7 3 >59 normal Not Available [facility] ([facility]) [address] [facility] [place], [address], 04/21/2025 08:11:12 04/20/20 25 04/21/2025 COMP. METAB OLIC PANEL (14) BUN/creatini ne ratio 10 9-20 normal Not Available [facility] ([facility]) [address] [facility] [place], [address], 04/21/2025 08:11:12 04/20/20 25 04/21/2025 COMP. METAB OLIC PANEL (14) sodium 139 mmol/ L 134-14 4 normal Not Available [facility] ([facility]) [address] [facility] [place], [address], 04/21/2025 08:11:12 04/20/20 25 04/21/2025 COMP. METAB OLIC PANEL (14) potassium 4.0 mmol/ L 3.5-5. 2 normal Not Available [facility] ([facility]) [address] [facility] [place], [address], 04/21/2025 08:11:12 04/20/20 25 04/21/2025 COMP. METAB OLIC PANEL (14) chloride 100 mmol/ L 96-106 normal Not Available [facility] ([facility]) [address] [facility] [place], [address], 04/21/2025 08:11:12 04/20/20 25 04/21/2025 COMP. METAB OLIC PANEL (14) carbon dioxide, total 24 mmol/ L 20-29 normal Not Available [facility] ([facility]) [address] [facility] [place], [address], 04/21/2025 08:11:12 04/20/20 25 04/21/2025 COMP. METAB OLIC PANEL (14) calcium 9.9 mg/dL 8.7-10 .2 normal Not Available [facility] ([facility]) [address] [facility] [place], [address], 04/21/2025 08:11:12 04/20/20 25 04/21/2025 COMP. METAB OLIC PANEL (14) protein, total 7.1 g/dL 6.0-8. 5 normal Not Available [facility] ([facility]) [address] [facility] [place], [address], 04/21/2025 08:11:12 04/20/20 25 04/21/2025 COMP. METAB OLIC PANEL (14) albumin 4.8 g/dL 4.1-5. 1 normal Not Available [facility] ([facility]) [address] [facility] [place], [address], 04/21/2025 08:11:12 04/20/20 25 04/21/2025 COMP. METAB OLIC PANEL (14) globulin, total 2.3 g/dL 1.5-4. 5 Not Available [facility] ([facility]) [address] [facility] [place], [address], 04/21/2025 08:11:12 04/20/20 25 04/21/2025 COMP. METAB OLIC PANEL (14) bilirubin, total 0.2 mg/dL 0.0-1. 2 normal Not Available [facility] ([facility]) [address] [facility] [place], [address], 04/21/2025 08:11:12 04/20/20 25 04/21/2025 COMP. METAB OLIC PANEL (14) alkaline phosphatase 84 IU/L 44-121 normal Not Available [facility] ([facility]) [address] [facility] [place], [address], 04/21/2025 08:11:12 04/20/20 25 04/21/2025 COMP. METAB OLIC PANEL (14) AST (SGOT) 25 IU/L 0-40 normal Not Available [facility] ([facility]) [address] [facility] [place], [address], 04/21/2025 08:11:12 04/20/20 25 04/21/2025 COMP. METAB OLIC PANEL (14) ALT (SGPT) 32 IU/L 0-44 normal Not Available [facility] ([facility]) [address] [facility] [place], [address], 04/21/2025 08:11:12 04/20/20 25 04/21/2025 LIPID PANEL cholesterol, total 131 mg/dL 100-19 9 normal Not Available [facility] ([facility]) [address] [place], [address], 04/21/2025 08:11:12 04/20/20 25 04/21/2025 LIPID PANEL triglyceride s 208 mg/dL 0-149 above high normal Not Available [facility] ([facility]) [address] [place], [address], 04/21/2025 08:11:12 04/20/20 25 04/21/2025 LIPID PANEL HDL cholesterol 31 mg/dL >39 below low normal Not Available [facility] ([facility]) [address] [place], [address], 04/21/2025 08:11:12 04/20/20 25 04/21/2025 LIPID PANEL VLDL cholesterol roney 35 mg/dL 5-40 Not Available [facility] ([facility]) [address] [place], [address], 04/21/2025 08:11:12 04/20/20 25 04/21/2025 LIPID PANEL LDL chol calc ([facility]) 65 mg/dL 0-99 Not Available [facility] ([facility]) [address] [place], [address], 04/21/2025 08:11:12 04/20/2004/21/2025 LIPID PANEL LDL calc comment: GROCERY ASSOCIATE Not Available [facility] ([facility]) [address] [place], [address], 04/21/2025 08:11:12 04/20/20 25 04/21/2025 HEMOG LOBIN A1C hemoglobin A1C 6.3 % 4.8-5. 6 above high normal Predi abete s: 5.7 - 6.4 Diabe ej: >6.4 Glyce vera contr ol for adult s with diabe ej: <7.0 Not Available [facility] ([facility]) [address] [place], [address], 04/21/2025 08:11:13 04/20/2004/21/2025 TSH RFX ON ABNOR MAL TO FREE T4 TSH 0.919 uIU/m L 0.450- 4.500 normal Not Available [facility] ([facility]) [address] [facility], [place], [address], 04/21/2025 08:11:14 06/28/20 25 06/28/2025 gluco se, finge rstic k, blood Blood Glucose: mg/dl 134 Not Available [address], [address], 06/28/2025 10:32:30 07/05/20 25 07/05/2025 gluco se, finge rstic k, blood Blood Glucose: mg/dl 88 Not Available [address], [address], 07/05/2025 13:14:12 07/08/20 25 07/08/2025 CT, head + brain , w/o contr ast No observ ation record ed. [email or web address] [facility] [address], [place], [place], [address], 07/11/2025 11:13:20 07/19/2007/19/2025 US, doppl er echoc ardio gram No observ ation record ed. [facility] [address], [place], [place], [address], 07/19/2025 12:09:00 08/10/20 25 08/09/2025 exerc ise stres s test No observ ation record ed. [facility] [address], [place], [place], [address], 08/10/2025 08:19:26 Result Notes None recorded. Problems Name Problem SNOMED Code Status Onset Date Resolution Date Notes Provider Name and Address Organization Details Recorded Time Low back pain 453011646 Completed 201605/19/2020 Problem Code: M54.5; Problem Code Type: ICD-10; Not Available [facility] 22:48:45 Right side sciatica [id number] 9101 Completed 201605/19/2020 Problem Code: M54.31; Problem Code Type: ICD-10; Not Available [facility] 22:48:47 Abdomina l pain 27695064 Completed 201902/13/2021 Problem Code: R10.9; Problem Code Type: ICD-10; Not Available [facility] 22:48:45 Nausea and vomiting 28111217 Completed 201907/06/2022 Problem Code: R11.2; Problem Code Type: ICD-10; CESAR reynolds, [employer] 07:55:25 Diarrhea 84711210 Completed 201907/06/2022 Problem Code: R19.7; Problem Code Type: ICD-10; CESAR reynolds, [employer] 07:55:26 Splenome gilberto 07119595 Active 2019 Problem Code: R16.1; Problem Code Type: ICD-10; Not Available [facility] 22:48:45 Diarrhea 81344279 Completed 201902/13/2021 Problem Code: R19.7; Problem Code Type: ICD-10; CESAR reynolds, [employer] 07:55:26 Hyperten sive disorder 04107555 Active 2020 Problem Code: I10; Problem Code Type: ICD-10; Kari Pleitez APRN [address] [place] [address], [address] , [employer] 5 13:19:35 Pain in right knee Completed 202007/06/2022 Problem Code: M25.561; Problem Code Type: ICD-10; CESAR reynolds, [employer] 07:55:26 General examinat ion of patient Completed 202007/06/2022 CESAR reynolds, [employer] 07:55:25 Body mass index 30+ - obesity 143393936 Active 2020 Problem Code: Z68.30; Problem Code Type: ICD-10; Not Available [facility] 22:48:47 Disorder of upper respirat ory system 971523339 Completed 202007/06/2021 Problem Code: J06.9; Problem Code Type: ICD-10; Not Available [facility] 22:48:45 COVID-19 359128784 Completed 202007/06/2022 Problem Code: U07.1; Problem Code Type: ICD-10; CESAR reynolds, [employer] 07:55:26 Bronchop neumonia 619056172 Completed 202007/06/2022 Problem Code: J18.0; Problem Code Type: ICD-10; CESAR reynolds, [employer] 07:55:26 [place] lesion of lung 456714675 Completed 202007/06/2022 Problem Code: R91.1; Problem Code Type: ICD-10; CESAR reynolds, [employer] 2 07:55:26 Mixed hyperlip idemia 210313230 Active 2020 Problem Code: E78.2; Problem Code Type: ICD-10; Not Available [facility] 22:48:44 Influenz a vaccine needed 35094558949 06 Completed 202007/06/2022 Problem Code: Z23; Problem Code Type: ICD-10; CESAR reynolds, [employer] 07:55:25 Noninfec tious gastroen teritis 89137171 Completed 202107/06/2022 CESAR reynolds, [employer] 2 07:55:25 Prediabe ej 855394481 Active 2023 Kari Pleitez APRN [address] [place] [address], [address] [place] [address] , [employer] 5 13:15:49 Body mass index 25-29 - overweig ht 462291982 Active 2024 Kari Pleitez APRN [address] [place] [address], [address] [place] [address] , [employer] 5 08:10:[address] [facility] emia 082972648 Active 2024 Kari Pleitez APRN [address] [place] [address], [address] [place] [address] , [employer] 5 10:34:25 Hyperins ulinism 43084973 Active 2024 Kari Pleitez, DUGLAS [address] [place] [address], [address] [place] [address] , [employer] 5 13:19:21 Problem Notes None recorded. Procedures Surgical History Date Name Laterality Status Provider Name and Address Organization Details Recorded Time 11/20 Cerumen Removal completed LAURITA BYNUM [employer] 3 09:40:03 07/06 Cerumen Removal completed Kym Garibay PA-C [address] [place] [address], [address] [place] [address] , [employer] 2 09:08:27 07/21 esophagogastroduodenoscopy completed JOHAN LEIVA [employer] 2 07:58:09 Appendectomy completed [employer]AR [employer] 2 07:57:06 Tonsillectomy completed [employer]ESAR [employer] 2 07:57:19 Wrist arthroscopy/surgery completed [employer] 2 07:57:40 Back Surgery completed CESAR [facility] [employer], [facility] 2 07:57:50 Imaging Results None [...] Not Available Not Available Not Available dextrometho [facility] enesin 10 mg-100 mg/5 mL oral liquid [...] Updated DateTime 5 185.42 cm 29.6 kg/m2 678211. 69 g 97.8 [degF] 63 /min 96 % 96 % 103/64 mm[Hg] LAURITA BYNUM [facility] [employer] 5 08:07:18 Date Recorded Body height Body mass index (BMI) Body weight Body temperature Heart rate Oxygen saturation Oxygen saturation in Arterial blood by Pulse oximetry Systolic And Diastolic Provider Name and Address Organization Details Last Updated DateTime 5 185.42 cm 29.3 kg/m2 802873. 79 g 73.3 [degF] 73 /min 96 % 96 % 108/67 mm[Hg] LAURIAT MYNEAR [employer] 10:32:05 Date Recorded Body height Systolic And Diastolic Provider Name and Address Organization Details Last Updated DateTime 07/01/2025 185.42 cm 120/74 mm[Hg] LAURITA CARVALHONEAR [facility] [employer] 07/01/2025 11:37:02 Date Recorded Body height Body mass index (BMI) Body weight Body temperature Heart rate Oxygen saturation Oxygen saturation in Arterial blood by Pulse oximetry Systolic And Diastolic Provider Name and Address Organization Details Last Updated DateTime 185.42 cm 29.3 kg/m2 337162. 22 g 99 [degF] 90 /min 96 % 96 % 125/78 mm[Hg] LAURITA HUANGR [employer] 13:13:38 Date Recorded Body height Body mass index (BMI) Body weight Body temperature Heart rate Oxygen saturation Oxygen saturation in Arterial blood by Pulse oximetry Systolic And Diastolic Provider Name and Address Organization Details Last Updated DateTime 185.42 cm 29.8 kg/m2 276189. 88 g 98.2 [degF] 83 /min 95 % 95 % 134/78 mm[Hg] LAURITA [employer] 11:20:35 Social History Question Answer Notes LastModified by Organizat ion Details LastModified Time Tobacco Smoking Status Never Smoker CESAR reynolds [employer] 07/06/2022 07:56:42 Do You Have An Advance Directive? No [email or web address] Information n ot available 07/06/2022 Is Your [...] Or The Highest Degree You Have Received? [id number] [email or web address] Information not available 07/06/2022 Who Is Your Employer? [employer] [email or web address] Information not available 07/06/2022 Do You Have A Medical Power Of Supervisor [employer]? No [email or web address] Information not available 07/06/2022 What Was The Date Of Your Most Recent Tobacco Screening? 08/03/2025 Information not available 08/03/2025 What Is Your Relationship Status? [email or web address] Information not available 07/06/2022 Do You Use [...] Functional Status Question Answer Note LastModified by [employer] ion Details LastModified Time Do you use any illicit or recreational drugs? No [email or web address] Information not available 07/06/2022 Do you or have you ever used any other forms of tobacco or nicotine? No Information not available 09/10/2023 What is your level of alcohol consumption? None [email or web address] Information not available 07/06/2022 Are you currently employed? Yes [email or web address] Information not available 07/06/2022 Do you have transportation difficulties? No Information not available 03/05/2023 Are you able to care for yourself independently? Yes Information not available 03/05/2023 Mental Status None recorded. Family History Relationship Description Onset Age of this Age Resolved Age Notes LastModified by Organization Details LastModified Time Father No current problems or disability [email or web address] Not available 07:55:43 Mother No current problems or disability [email or web address] Not available 07:55:43 Medical History Condition Response High Cholesterol Y Hypertension Y Immunizations Vaccine Type Date Status Note Provider Nam e and Address Organization Details Recorded Time COVID-19, mRNA, LNP-S, PF, 30 mcg/0.3 mL dose 1 completed LAURITA MYNEAR null, [employer] 09/23/2022 10:12:04 COVID-19, mRNA, LNP-S, PF, 30 mcg/0.3 mL dose 1 completed LAURITA MYNEAR null, [employer] 09/23/2022 10:12:04 Td (adult), 2 Lf tetanus toxoid, preservative free, adsorbed 6 completed JUAN BARDALES null, [employer] 09/19/2022 10:39:21 Influenza, split virus, trivalent, PF 5 completed LAURITA MYNEAR null, [employer] 08/03/2025 11:26:29 Past Encounters Encounter ID Performer Location Encounter Start Date Encounter Closed Date Diagnosis/Indication Diagnosis SNOMED-CT Code Diagnosis ICD10 Code Diagnosis IMO Codes Diagnosis Note [id number] Kym Garibay PA-C [email or web address] [address] [phone] 07/06/2022 07:57:28 07/06/2022 09:23:56 Impacted cerumen of bilateral ears [id number] 302257 H61.23 [id number] Kecia Gonsalez APRN [email or web address] [address] [phone] 09/19/2022 10:34:23 09/19/2022 11:05:29 Fever 654653815 R50.9 COVID-19 253788340 U07.1 Cough 25300515 R05.9 Body mass index 30+ - obesity 614995880 Z68.30 [id number] Kari Pleitez [place] [address] 0 09/23/2022 10:01:47 09/23/2022 10:39:25 Low back pain 593672754 M54.40 RCIE, continue stretches, to RTC in 1 week if sx are not improved. [id number] [place] [address] 0 11/18/2022 10:34:52 11/18/2022 11:10:54 Primary herpes simplex infection of lips 351945971 B00.1 Etiology and duration of herpes labialis explained. Pain control, use of valtrex explained. Pain in coccyx 95554362 M53.3 RICE, obtain x ray. [id number] [place] [address] 0 11/20/2022 09:14:52 11/20/2022 09:42:41 Impacted cerumen in right ear 6878101423 428272 H61.21 [id number] Kari Pleitez [place] [address] 0 12/17/2022 07:49:51 12/17/2022 08:46:48 Hypertensive disorder 03196458 I10 DASh diet, exercise, and weight loss encouraged . Continue current medication s. Mixed hyperlipidemia 267 830488 E78.2 Adult [facility] th examination 690356442 Z00.00 Body mass index 30+ - obesity 690194658 Z68.30 Lumbosacra l radiculopathy 5257063 M54.17 [id number] [place] [address] 0 03/05/2023 08:54:57 03/05/2023 09:51:38 Transient cerebral ischemia 558048735 G45.9 Increase HCTZ to 25 mg daily. [...] Type 2 terra betes mellitus without complication 950069265 E11.9 Diabetic diet explained in detail. [id number] [place] [address] 0 04/04/2023 08:48:20 04/04/2023 09:33:08 Transient cerebral ischemia 583364437 G45.9 To remain off work for 2 more months due to persistent fatigue and poor activity tolerance and. Hopefully you can return to work when I see you back in 2 months. He is to continue his home PT program for cardiovasc ular reconditio jasmyn. Continue current medication s and the low carb low fat diet. Type 2 terra betes mellitus without complication 028724508 E11.9 Diabetic diet explained in detail. Recheck you A1c and fasting labs at next appt. [id number] Kari Pleitez [address] [address] 06/04/2023 08:26:17 06/04/2023 10:26:09 Mixed hyperlipidemia 708453070 E78.2 He is to continue the statin and the aspirin. Type 2 terra betes mellitus without complication 316661769 E11.9 Continue current medication s, continue diabetic diet. Transient cerebral ischemia 998166079 G45.9 Patient may return to work without restrictio ns and if full-time hours starting tomorrow. Please see completed [place] papers for full details of return to work. These were given to him today and faxed to his employer. [id number] [place] [address] 09/10/2023 10:40:11 09/10/2023 11:35:44 Type 2 diabetes mellitus without complication 024330219 E11.9 Continue current medication s, continue diabetic diet. Hypertensive disorder 38 642439 I10 Continue HCTZ, low salt intake and ETOH moderation . [id number] Kecia Gonsalez [place] [address] 0 09/29/2023 12:51:59 09/29/2023 14:08:13 Fever 643338888 R50.9 Acute sinusitis 58973373 J01.90 Body mass index 25-29 - overweight 968728935 Z68.27 [id number] [place] [address] 0 02/23/2024 09:27:16 02/23/2024 10:03:04 Prediabetes 645737746 R73.03 A1c has increased. Again emphasized low carb diet and exercise. Hypertensive disorder 38 593667 I10 Continue HCTZ, low salt intake and ETOH moderation . Mixed hyperlipidemia 267 299974 E78.2 He is to continue the statin and the aspirin. Adult [facility] examination 497862915 Z00.00 The patient advised to continue a healthy diet and exercise regularly. He was also advised to:have a dermatogy skin screening . Labs will be sent. Advised patient to follow up in 1 year or sooner if needed. Body mass index 25-29 - overweight 180409804 Z68.28 [id number] [place] [address] 0 11/23/2024 09:01:27 11/23/2024 09:27:16 Prediabetes 403999757 R73.03 Again emphasized low carb diet and exercise. Hypertensive disorder 38 279376 I10 Continue HCTZ, low salt intake and ETOH moderation . Mixed hyperlipidemia 267 337162 E78.2 He is to continue the statin and the aspirin. Body mass index 25-29 - overweight 504553959 Z68.28 [id number] Kari Pleitez [place] [address] 0 12/15/2024 08:40:27 12/15/2024 09:32:56 Acute upper respiratory infection 74683356 J06.9 May RTW today. Continue to monitor [...] to 2 weeks if symptoms not improving. [id number] [place] [address] 0 01/25/2025 08:51:25 01/25/2025 09:39:36 Cough 33261835 R05.9 Acute bronchitis 8945455 2 J20.9 Cough The patient presents wet cough. The patient's condition is worsening. Based on the findings today we will begin medication therapy. Reviewed symptomati c care instructio ns, the expected course of these illnesses and explained that coughing can persist for some time. Provided precaution s for signs of worsening disease and instructio ns on contacting us if symptoms worsen. [id number] Kari Pleitez [place] [address] 0 04/05/2025 09:35:07 04/05/2025 10:04:32 Hypertensive disorder 09858083 I10 Add lisinopril 10 mg daily. Continue HCTZ. Check BP at home every evening. Ensure low salt diet with adequate hydration. RTC in 2 weeks with BP log. [id number] Kari Pleitez [place] [address] 0 04/20/2025 07:57:23 04/20/2025 08:24:22 Hypertensive disorder 19914289 I10 DASH diet, avoid ETOH, exercise. Monitor BP at home routinely and report excursions . Prediabetes 311036519 R7 3.03 Again emphasized low carb diet and exercise. Body mass index 25-29 - overweight 863184722 E66.3 76173295 Mixed hyperlipidemia 267 346857 E78.2 He is to continue the statin and the aspirin. [id number] [place] [address] 0 06/28/2025 10:14:48 06/28/2025 11:38:19 Hypoglycemia 405555122 E16.2 05396 RTW on night 06/30/2025 [id number] [place] [address] 0 07/01/2025 11:15:54 07/02/2025 10:57:06 [id number] [place] [address] 0 07/05/2025 12:57:11 07/05/2025 14:06:01 Hypoglycemia 478076681 E16.2 20016 Obtain and carry the prescribed glucose tablets Prediabetes 859760399 R7 3.03 052884 Again emphasized regular low carb diet and exercise. Hypertensive disorder 38 105393 I10 DASH diet, avoid ETOH, exercise. Monitor BP at home routinely and report excursions . Hyperinsulinism 19104634 E16.1 8331031 Off work for 2 weeks until seen by Janis, tentative RTW date will be 07/25/25. Begin 2 week CGM with [employer]. [id number] [place] [address] 08/03/2025 10:54:00 08/03/2025 11:58:02 Influenza vaccination given 0597571392 9109 Z23 41787974 Hypoglycemia 250202432 E 16.2 68155 Obtain and carry the prescribed glucose tablets Health Concerns Section Related Observation LastModified by Organization Detai ls LastModified Time None Recorded Concern Status LastModified by Organization Details LastModified Time None Recorded Advance Directives Directive N: Payers Insurance Date Sequence Insurance Name Policy Number Policy Arizmendi Covered Member ID Arizmedni Member ID Guarantor Name 08/15/2025 1 [place] [id number] Tunde Paige [id number] Tunde Paige Notes Date Note Type Note [...] complaints and feels well today. Kari Pleitez, PEDIATRIC DERMATOLOGIST [address] [place], [address], [facility] [employer], [facility]. 04/20/2025 09:15:02 5 text/htm l ROS as [...] of blood glucose levels.Medical History- Prediabetes Kari Pleitez, PEDIATRIC DERMATOLOGIST [address] [place], [address], [facility] [employer], [facility]. 06/28/2025 10:51:45 5 text/htm l ROS as [...] dizziness.Endocrine: Positive for hypoglycemia episodes. Kari Pleitez, PEDIATRIC DERMATOLOGIST [address] [place], [address], [facility] [employer], [employer] 07/05/2025 13:54:30 5 text/htm l ROS as noted in [...] and the third one displayed unavailable. The lab instructor has discussed excess insulin production and cortisol as potential contributing factors to his hypoglycemia.He also saw cardiology during his hospitalization for an echocardiogram. 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 He received a flu vaccination today and is currently on FMLA from work. Krai Pleitez, PEDIATRIC DERMATOLOGIST [address] [facility], [place], [address], [facility] [employer] 08/13/2025 16:50:21
--- OUTSIDE RECORDS SUMMARY | 2025-08-24 08:09 | XMS_ITS | Continuity of Care Document ---
Author Organization [place] [facility] Address [address] [place] [address] Assessment No assessment recorded. Plan of Treatment [...] blood Blood Glucose: mg/dl 134 Not Available [address], [address], 06/28/2025 10:32:30 07/08/2007/08/2025 CT, head + brain , w/o contr ast No observ ation record ed. [email or web address] [place] [id number], [place], [address], 07/11/2025 11:13:20 07/19/20 25 07/19/2025 US, doppl er echoc ardio gram No observ ation record ed. [facility] [address], [place], [address], 07/19/2025 12:09:00 08/10/20 25 08/09/2025 exerc ise stres s test No observ ation record ed. [facility] [address], [place], [address], 08/10/2025 08:19:26 Result Notes None recorded. Problems Name Problem SNOMED Code Status Onset Date Resolution Date Notes Provider Name and Address Organization Details Recorded Time Low back pain 736204588 Completed 201605/19/2020 Problem Code: M54.5; Problem Code Type: ICD-10; Not Available [facility] 22:48:45 Right side sciatica 34460547509 9101 Completed 201605/19/2020 Problem Code: M54.31; Problem Code Type: ICD-10; Not Available [facility] 22:48:47 Abdomina l pain 91389575 Completed 201902/13/2021 Problem Code: R10.9; Problem Code Type: ICD-10; Not Available [facility] 22:48:45 Nausea and vomiting 96727220 Completed 201907/06/2022 Problem Code: R11.2; Problem Code Type: ICD-10; CESAR reynolds, [employer] 2 07:55:25 Diarrhea 27747746 Completed 201907/06/2022 Problem Code: R19.7; Problem Code Type: ICD-10; CESAR reynolds, [employer] 2 07:55:26 Splenome gilberto 29882918 Active 2019 Problem Code: R16.1; Problem Code Type: ICD-10; Not Available [facility] 22:48:45 Diarrhea 25210196 Completed 201902/13/2021 Problem Code: R19.7; Problem Code Type: ICD-10; CESAR reynolds [employer] 2 07:55:26 Hyperten sive disorder 46398678 Active 2020 Problem Code: I10; Problem Code Type: ICD-10; Kari Maik, SERVICE UNIT OPERATOR [address] [place], [address] , [employer] 13:19:35 Pain in right knee Completed 202007/06/2022 Problem Code: M25.561; Problem Code Type: ICD-10; CESAR reynolds, [employer] 07:55:26 General examinat ion of patient Completed 202007/06/2022 CESAR reynolds, [employer] 07:55:25 Body mass index 30+ - obesity 131055018 Active 2020 Problem Code: Z68.30; Problem Code Type: ICD-10; Not Available [employer] 22:48:47 Disorder of upper respirat ory system 581047603 Completed 202007/06/2021 Problem Code: J06.9; Problem Code Type: ICD-10; Not Available [employer] 22:48:45 COVID-19 522727940 Completed 202007/06/2022 Problem Code: U07.1; Problem Code Type: ICD-10; CESAR reynolds, [employer] 07:55:26 Bronchop neumonia 221648611 Completed 202007/06/2022 Problem Code: J18.0; Problem Code Type: ICD-10; CESAR reynolds, [employer] 07:55:26 [place] lesion of lung 221520979 Completed 202007/06/2022 Problem Code: R91.1; Problem Code Type: ICD-10; CESAR reynolds, [employer] 07:55:26 Mixed hyperlip idemia 925426181 Active 2020 Problem Code: E78.2; Problem Code Type: ICD-10; Not Available [employer] 2 22:48:44 Influenz a vaccine needed 50275679876 06 Completed 202007/06/2022 Problem Code: Z23; Problem Code Type: ICD-10; CESAR LEIVA gail, [employer] 2 07:55:25 Noninfec tious gastroen teritis 99623651 Completed 202107/06/2022 CESAR reynolds, [employer] 2 07:55:25 Prediabe ej 381418900 Active 2023 Kari Pleitez APRN [address] [place] [address], [address] , [employer] 5 13:15:49 Body mass index 25-29 - overweig ht 163513413 Active 2024 Kari Pleitez APRN [address] [place] [address], [address] [place] [address] , [employer] 5 08:10:40 Hypoglyc emia 130547799 Active 2024 Kari Pleitez APRN [address] [place] [address], [address] [place] [address] , [employer] 5 10:34:25 Hyperins ulinism 47449584 Active 2024 Kari Pleitez APRN [address] [place] [address], [address] [place] [address] , [employer] 5 13:19:21 Problem Notes None recorded. Procedures Surgical History Date Name Laterality Status Provider Name and Address Organization Details Recorded Time 11/20 Cerumen Removal completed LAURITA BYNUM [employer] 3 09:40:03 07/06 Cerumen Removal completed Kym Garibay PA-C [address] [place] [address], [address] , [employer] 2 09:08:27 07/21 esophagogastroduodenoscopy completed JOHAN LEIVA [employer] 2 07:58:09 Appendectomy completed CESAR LEIVA [employer] [facility] 2 07:57:06 Tonsillectomy completed [facility] [employer] [facility] 2 07:57:19 Wrist arthroscopy/surgery completed [facility] [employer] 2 07:57:40 Back Surgery completed [facility] [employer] [facility] 2 07:57:50 Imaging Results None recorded. Procedure [...] DateTime 07/01/2025 185.42 cm 120/74 mm[Hg] LAURITA BETHEA [place]. 07/01/2025 11:37:02 Social History Question Answer Notes LastModified by Organizat ion Details LastModified Time Tobacco Smoking Status Never Smoker CESAR ABBIE reynolds [facility] [employer] 07/06/2022 07:56:42 Do You Have An Advance Directive? No [email or web address] Information n ot available 07/06/2022 Is Your [...] Or The Highest Degree You Have Received? [id number] [email or web address] Information not available 07/06/2022 Who Is Your Employer? [employer] [email or web address] Information not available 07/06/2022 Do You Have A Medical Power Of Rural Mail Contractor? No [email or web address] Information not available 07/06/2022 What Was The Date Of Your Most Recent Tobacco Screening? 08/03/2025 Information not available 08/03/2025 What Is Your Relationship Status? [email or web address] Information not available 07/06/2022 Do You Use [...] use any illicit or recreational drugs? No [email or web address] Information not available 07/06/2022 Do you or have you ever used any other forms of tobacco or nicotine? No Information not available 09/10/2023 What is your level of alcohol consumption? None [email or web address] Information not available 07/06/2022 Are you currently employed? Yes [email or web address] Information not available 07/06/2022 Do you have transportation difficulties? No Information not available 03/05/2023 Are you able to care for yourself independently? Yes Information not available 03/05/2023 Mental Status None recorded. Family History Relationship Description Onset Age of this Age Resolved Age Notes LastModified by Organization Details LastModified Time Father No current problems or disability [email or web address] Not available 07:55:43 Mother No current problems or disability [email or web address] Not available 07:55:43 Medical History Condition Response Hypertension Y High Cholesterol Y Immunizations Vaccine Type Date Status Note Provider Nam e and Address Organization Details Recorded Time COVID-19, mRNA, LNP-S, PF, 30 mcg/0.3 mL dose 1 completed LAURITA CARVALHONEAR null, [employer] 09/23/2022 10:12:04 COVID-19, mRNA, LNP-S, PF, 30 mcg/0.3 mL dose 1 completed LAURITA CARVALHONEAR null, [employer] 09/23/2022 10:12:04 Td (adult), 2 Lf tetanus toxoid, preservative free, adsorbed 6 completed JUAN BARDALES null, [employer] 09/19/2022 10:39:21 Influenza, split virus, trivalent, PF 5 completed LAURITA CARVALHONEAR null, [employer] 08/03/2025 11:26:29 Past Encounters Encounter ID Performer Location Encounter Start Date Encounter Closed Date Diagnosis/Indication Diagnosis SNOMED-CT Code Diagnosis ICD10 Code Diagnosis IMO Codes Diagnosis Note [id number] Kari Pleitez SERVICE UNIT OPERATOR [address] [address] 06/28/2025 10:14:48 06/28/2025 11:38:19 Hypoglycemia 840465693 E16.2 40709 RTW on night 06/30/2025 [id number] Kari Pleitez APRN [address] [address] 07/01/2025 11:15:54 07/02/2025 10:57:06 Health Concerns Section Related Observation LastModified by Organization Detai ls LastModified Time None Recorded Concern Status LastModified by Organization Details LastModified Time None Recorded Payers Encounter Date Sequence Insurance Name Policy Number Policy Arizmendi Covered Member ID Arizmendi Member ID Guarantor Name 07/01/2025 1 [place] [id number] Tunde Paige [id number] Tunde Paige
--- OUTSIDE RECORDS SUMMARY | 2025-08-24 08:09 | XMS_ITS | Continuity of Care Document ---
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, [facility] [place], [address], 06/28/2025 10:39:29 C-peptide , serum 2024 025 [place] [facility] [place], [address], 06/29/2025 12:10:10 HbA1c (hemoglob in A1c), blood 2024 025 [place] [facility] ([facility]), [address] [place], [address], 06/29/2025 12:10:11 CBC w/ auto diff 2024 025 [place] [facility] [address] [place] [address], [id number], 06/29/2025 12:10:09 BMP, serum or plasma 2024 025 [place] [facility] [address] [place] [address], [id number], 06/29/2025 12:10:09 Referral None recorded. Procedures None recorded. Surgeries None recorded. Imaging None recorded. Medication Orders glucose 4 gram chewable tablet 2024 025 [facility], [address] [place] [address], [id number], 07/05/2025 13:54:27 Patient TargetsNo targets recorded. Patient InstructionsNo instructions recorded. Reason for Referral None Reported. Results Created Date Observation Date Name Description Value Unit Range Abnormal Flag Note LastModifiedBy Organization Detail LastModifiedTime 06/28/20 25 06/28/2025 gluco sehaile, blood Blood Glucose: mg/dl 134 Not Available [address], [address], 06/28/2025 10:32:30 07/08/20 25 07/08/2025 CT, head + brain , w/o contr ast No observ ation record ed. [email or web address] [facility] [address], [place], [address], 07/11/2025 11:13:20 07/19/20 25 07/19/2025 US, doppl er echoc ardio gram No observ ation record ed. [facility] [address], [place], [address], 07/19/2025 12:09:00 08/10/2008/09/2025 exerc ise stres s test No observ ation record ed. [facility] [address], [place], [address], 08/10/2025 08:19:26 Result Notes None recorded. Problems Name Problem SNOMED Code Status Onset Date Resolution Date Notes Provider Name and Address Organization Details Recorded Time Low back pain 865236535 Completed 201605/19/2020 Problem Code: M54.5; Problem Code Type: ICD-10; Not Available [facility] 22:48:45 Right side sciatica [id number] 9101 Completed 201605/19/2020 Problem Code: M54.31; Problem Code Type: ICD-10; Not Available [facility] 22:48:47 Abdomina l pain 07177044 Completed 201902/13/2021 Problem Code: R10.9; Problem Code Type: ICD-10; Not Available [facility] 22:48:45 Nausea and vomiting 51404147 Completed 201907/06/2022 Problem Code: R11.2; Problem Code Type: ICD-10; JM Oconnell [employer] 07:55:25 Diarrhea 25368056 Completed 201907/06/2022 Problem Code: R19.7; Problem Code Type: ICD-10; CESAR reynolds, [employer] 2 07:55:26 Gerardo macias 00407994 Active 2019 Problem Code: R16.1; Problem Code Type: ICD-10; Not Available [facility] 22:48:45 Diarrhea 79575985 Completed 201902/13/2021 Problem Code: R19.7; Problem Code Type: ICD-10; CESAR reynolds, [employer] 2 07:55:26 Hyperten sive disorder 53482060 Active 2020 Problem Code: I10; Problem Code Type: ICD-10; Kari Pleitez, DUGLAS [address] [place] [address], [phone] , [employer] 5 13:19:35 Pain in right knee Completed 202007/06/2022 Problem Code: M25.561; Problem Code Type: ICD-10; CESAR reynolds, [employer] 07:55:26 General examinat ion of patient Completed 202007/06/2022 CESAR reynolds, [employer] 2 07:55:25 Body mass index 30+ - obesity 329815808 Active 2020 Problem Code: Z68.30; Problem Code Type: ICD-10; Not Available [facility] 2 22:48:47 Disorder of upper respirat ory system 024776633 Completed 202007/06/2021 Problem Code: J06.9; Problem Code Type: ICD-10; Not Available [facility] 22:48:45 COVID-19 061922089 Completed 202007/06/2022 Problem Code: U07.1; Problem Code Type: ICD-10; CESAR reynolds, [employer] 07:55:26 Bronchop neumonia 982703754 Completed 202007/06/2022 Problem Code: J18.0; Problem Code Type: ICD-10; ECSAR reynolds, [employer] 2 07:55:26 [place] lesion of lung 132237486 Completed 202007/06/2022 Problem Code: R91.1; Problem Code Type: ICD-10; CESAR reynolds, [employer] 2 07:55:26 Mixed hyperlip idemia 107855414 Active 2020 Problem Code: E78.2; Problem Code Type: ICD-10; Not Available [facility] 22:48:44 Influenz a vaccine needed 82066256935 06 Completed 202007/06/2022 Problem Code: Z23; Problem Code Type: ICD-10; CESAR reynolds, [employer] 2 07:55:25 Noninfec tious gastroen teritis 52973606 Completed 202107/06/2022 CESAR reynolds, [employer] 2 07:55:25 Prediabe ej 151521607 Active 2023 Kari Pleitez APRN [address] [place] [address], [phone] , [employer] 5 13:15:49 Body mass index 25-29 - overweig ht 197906761 Active 2024 Kari Pleitez APRN [address] [place] [address], [address] , [employer] 08:10:40 Hypoglyc emia 303468029 Active 2024 Kari Pleitez APRN [address] [place] [address], [phone] , [employer] 10:34:25 Hyperins ulinism 02215755 Active 2024 Kari Pleitez APRN [address] [place] [address], [phone] , [employer] 5 13:19:21 Problem Notes None recorded. Procedures Surgical History Date Name Laterality Status Provider Name and Address Organization Details Recorded Time 11/20 Cerumen Removal completed LAURITA DEVENLAURIE [employer] 3 09:40:03 07/06 Cerumen Removal completed Kym Garibay PA-C [address] [place] [address], [phone] , [employer], [employer]. 2 09:08:27 07/21 esophagogastroduodenoscopy completed [place] [employer] 2 07:58:09 Appendectomy completed [employer] 2 07:57:06 Tonsillectomy completed [employer]. 2 07:57:19 Wrist arthroscopy/surgery completed [employer] 2 07:57:40 Back Surgery completed [employer]. 2 07:57:50 Imaging Results None recorded. Procedure [...] Updated DateTime 5 185.42 cm 29.3 kg/m2 067754. 79 g 73.3 [degF] 73 /min 96 % 96 % 108/67 mm[Hg] LAURITA BYNUM [employer] 5 10:32:05 Social History Question Answer Notes LastModified by Organizat ion Details LastModified Time Tobacco Smoking Status Never Smoker CESAR reynolds, [employer], [employer]. 07/06/2022 07:56:42 Do You Have An Advance [...] Or The Highest Degree You Have Received? [id number] [email or web address] Information not available 07/06/2022 Who Is Your Employer? [employer] [email or web address] Information not available 07/06/2022 Do You Have A Medical Power Of Can Tester? No [email or web address] Information not available 07/06/2022 What Was The Date Of Your Most Recent Tobacco Screening? 08/03/2025 Information not available 08/03/2025 What Is Your Relationship Status? [email or web address] Information not available 07/06/2022 Do You Use [...] use any illicit or recreational drugs? No [email or web address] Information not available 07/06/2022 Do you or have you ever used any other forms of tobacco or nicotine? No Information not available 09/10/2023 What is your level of alcohol consumption? None [email or web address] Information not available 07/06/2022 Are you currently employed? Yes [email or web address] Information not available 07/06/2022 Do you have transportation difficulties? No Information not available 03/05/2023 Are you able to care for yourself independently? Yes Information not available 03/05/2023 Mental Status None recorded. Family History Relationship Description Onset Age of this Age Resolved Age Notes LastModified by Organization Details LastModified Time Father No current problems or disability [email or web address] Not available 07:55:43 Mother No current problems or disability [email or web address] Not available 07:55:43 Medical History Condition Response Hypertension Y High Cholesterol Y Immunizations Vaccine Type Date Status Note Provider Nam rosendo and Address Organization Details Recorded Time COVID-19, mRNA, LNP-S, PF, 30 mcg/0.3 mL dose completed LAURITA reynolds [facility]. 09/23/2022 10:12:04 COVID-19, mRNA, LNP-S, PF, 30 mcg/0.3 mL dose 1 completed LAURITA DEVENNEAR null, [employer] 09/23/2022 10:12:04 Td (adult), 2 Lf tetanus toxoid, preservative free, adsorbed 6 completed JUAN BARDALES null, [employer] 09/19/2022 10:39:21 Influenza, split virus, trivalent, PF 5 completed LAURITA DEVENNEAR null, [employer] 08/03/2025 11:26:29 Past Encounters Encounter ID Performer Location Encounter Start Date Encounter Closed Date Diagnosis/Indication Diagnosis SNOMED-CT Code Diagnosis ICD10 Code Diagnosis IMO Codes Diagnosis Note [id number] Kari Pleitez [place] [phone] 06/28/2025 10:14:48 06/28/2025 11:38:19 Hypoglycemia [id number] E16.2 67473 RTW on night 06/30/2025 Health Concerns Section Related Observation LastModified by Organization Detai ls LastModified Time None Recorded Concern Status LastModified by Organization Details LastModified Time None Recorded Payers Encounter Date Sequence Insurance Name Policy Number Policy Arizmendi Covered Member ID Arizmendi Member ID Guarantor Name 06/28/2025 1 [place] [id number] Tunde Bryant Royal [id number] Tunde Paige Notes Date Note Type Note [...] levels.Medical History- Prediabetes Kari Pleitez APRN [address] [place], [address], [facility] [employer] 06/28/2025 10:51:45
--- NOTE | 2025-08-24 08:14 | HMH.PHAINT1 ---
Pharmacy Intervention Comments: MEDICATION RECONCILIATION COMPLETED ON PATIENT USING EXTERNAL FILL HISTORY FROM PHARMACY. -KATHIA TRAN, ITZELD
--- NOTE | 2025-08-24 08:17 | PC.NURSE ---
walked on floor from front lobby admissions
[2025-08-24 08:38] VITALS: BP 145/78; PULSE 65; RESP 16; TEMP 36.4; O2SAT 97
--- NOTE | 2025-08-24 08:40 | HMH.ENDO.CON ---
History of Present Illness *History of present illness: Mr. Paige is a 44yr old, male with a PMH of HTN and HLD currently admitted for a 72 hr supervised fast for hypoglycemia. This is the 2nd time evaluation as he did not meet the test end points at last visit. No documented hypoglycemic episodes with low BG so far, low cortisol was followed by ACTH stim with robust response. He reports starting fast at midnight and has no complaints so far. [facility] Disclaimer: The information contained in this section may have been updated after the patient was seen, as this information can be updated by other users. Medical History CVA (cerebral vascular accident) Gastroenteritis Diarrhea Family History (Updated 08/24/25 @ 09:04 by Nina Huang, DEONTE) Other Family history of cancer Family history of diabetes mellitus type II Family history of myocardial infarction Social History (Updated 08/24/25 @ 09:04 by Nina Huang RN) Smoking Status: Never smoker alcohol intake: never substance use type: denies use current occupational status: employed Travel in the last 8 weeks?: None household members: spouse housing: house current occupation: [employer] current occupational exposures/hazards: No caffeine: No Have you lived/traveled outside US in past 30 days?: No Contact w/someone who lives/traveled outside US past 30 days?: No Exposure to someone with infectious disease in past 14 days?: No Do you have a fever (greater than 100.4 F or 38 C)?: No Have you tested positive for COVID-19?: No Exposed to someone with COVID-19 in past 14 days?: No Do you have a sore throat?: No Do you have a cough?: No Do you have any weakness?: No Do you have any diarrhea?: No Are you experiencing any unusual bleeding?: No Do you have any muscle aches/pain?: No Do you have any abdominal pain?: No Are you experiencing loss of taste or smell?: No Review of Systems Constitutional Constitutional: Denies excessive sweating, Denies fatigue and Denies weakness ENT Ears, Nose, Mouth, and Throat: Denies vertigo *Cardiovascular Cardiovascular: Denies chest pain and Denies dyspnea *Respiratory Respiratory: Denies dyspnea *Gastrointestinal Gastrointestinal: Denies abdominal pain and Denies change in bowel habits *Neurologic Neurologic: Denies tremor(s), Denies vertigo and Denies weakness Endocrine Endocrine: Reports as per HPI, Denies excessive sweating, Denies fatigue and Reports heat intolerance Exam Data for Last 24 hours Vital signs and Labs for Last 24 Hours: Temp Pulse Resp BP Pulse Ox O2 Del Method 97.6 F 65 16 145/78 H 97 Room Air 08/24/25 08:38 08/24/25 08:38 08/24/25 08:38 08/24/25 08:38 08/24/25 08:38 08/24/25 08:38 I & O for Last 24 hours: Intake & Output 08/21/25 08/22/25 08/23/25 08/24/25 23:59 23:59 23:59 23:59 Weight 227 lb 9 oz Constitutional Constitutional: no acute distress *Routine HEENT Exam Head: Present normocephalic Eye: Present EOMI and PERRL ENT: Present mucous membranes moist *Routine Neck Exam Neck: Present supple; Absent lymphadenopathy *Routine Respiratory Exam Respiratory: Present CTA bilaterally *Routine Cardiovascular Exam Cardiovascular: Present RRR *Routine Abdominal Exam Abdominal: Present soft and normoactive bowel sounds; Absent tenderness *Routine Extremities Exam Extremities: Absent cyanosis, clubbing or edema *Routine Skin Exam Skin: Present warm; Absent rash *Routine Neurological Exam Neurological: Present alert and oriented X3 Meds Home Medications and Allergies Home Medications ?Medication ?Instructions ?Recorded ?Confirmed ?Type aspirin 81 mg tablet 81 mg PO HS 07/13/25 08/24/25 History lisinopril 10 1 tab PO HS 07/13/25 08/24/25 History mg-hydrochlorothiazide 12.5 mg tablet rosuvastatin 20 mg tablet 20 mg PO HS 07/13/25 08/24/25 History glucose 3.75 gram chewable tablet 3.75 g PO NEEDED PRN 07/18/25 08/24/25 History Hypoglycemia blood sugar diagnostic (Accu-Chek #10 ea 08/02/25 08/18/25 History Guide test strips) blood-glucose meter (Accu-Chek #1 ea 08/02/25 08/18/25 History Guide Me Glucose Meter) blood-glucose sensor (DexInnovid G7 #1 ea 08/02/25 08/18/25 History Sensor device) lancets (Accu-Chek Softclix #100 ea 08/02/25 08/18/25 History Lancets) New Prescriptions to Start Prescriptions: Allergies Allergy/AdvReac Type Severity Reaction Status Date / Time No Known Allergies Allergy Verified 08/18/25 11:21 Assessment and Plan *Assessment and plan (1) Hypoglycemia: Status: Acute Category: Medical Code(s): E16.2 - Hypoglycemia, unspecified Plan - Check insulin, pro-insulin, c-peptide, BHB, sulfonylurea drug screen and BMP - Collect above blood samples when BG<55. - Check BG when patient has symptoms, every 2hrs and hrly once BG<70 - IM glucagon 1mg should be admistered once the samples are collected. - Check FSBG 10, min, 20 min and 30 mins post glucagon - Patient should be provided with meals after the hypoglycemic event. - Patient can be discharged once the following endpoints are met: 1. Patient has symptomatic hypoglycemic event with BG<55 and blood samples are collected. 2. 72hrs have elapsed 3. Patient has hypoglycemic event without symptoms and with a BG<45 4. Lower BG target of <60, if patient does not have any significant hypoglycemic episode by 72hrs. Discussed plan with nurse at bedside. Plan follow up outpatient in 2 weeks after the discharge. Endocrinology will continue to follow. Results Labs 08/24/25 08:30
[2025-08-24 09:31] LABS: Alanine Aminotransferase 47 U/L (12-78); Albumin Level 4.6 g/dl (3.5-5.0); Albumin/Globulin Ratio 1.6 (1.1-1.8); Alkaline Phosphatase 85 U/L (38-126); Anion Gap 13.0 mEq/L (5-15); Aspartate Amino Transferase 37 U/L (17-59); Bilirubin,Total 0.4 mg/dl (0.2-1.3); Blood Urea Nitrogen 8 mg/dl (9-20); Calcium 9.3 mg/dl (8.4-10.2); Carbon Dioxide 26 mmol/L (22.0-30.0); Chloride 104 mmol/L (98-107); Creatinine Clearance Estimated 170 mL/min (50-200); Creatinine,Serum 0.80 mg/dl (0.66-1.25); Estimated Glomerular Filt Rate 105 ml/min (>60); GFR (African American) 126 ML/MIN (>60); Globulin 2.8 g/dL (1.3-3.2); Glucose 113 mg/dl (74-100); Potassium 4.0 mmoL/L (3.5-5.1); Sodium 139 mmol/L (136-145); Total Protein,Serum 7.4 g/dl (6.3-8.2)
[2025-08-24 09:35] LABS: POC Glucose,Bedside 102 gm/dL (70-110)
[2025-08-24 09:35] LABS: POC Glucose,Bedside 101 gm/dL (70-110)
--- NOTE | 2025-08-24 10:41 | EXP.HP ---
History of Present Illness *Admission Date: 08/24/25 *Reason for visit:: Episodes of low blood sugar *History of present illness: Mr. Paige is a 45yr old, male with a PMH of HTN and HLD currently admitted for a 72 hr supervised fast for hypoglycemia. This is the 2nd time evaluation as he did not meet the test end points at last visit. No documented hypoglycemic episodes with low BG so far, low cortisol was followed by ACTH stim with robust response. He reports starting fast at midnight and has no complaints so far. Shortness of breath, chest pain, nausea or vomiting. Alert and oriented x 4. Does report having had an episode about a week ago where his glucose meter at home read low which means it was below 40. Has been using glucose tabs at home to prevent hypoglycemia. Otherwise feeling well. No acute illness. [facility] Disclaimer: The information contained in this section may have been updated after the patient was seen, as this information can be updated by other users. Medical History CVA (cerebral vascular accident) Gastroenteritis Diarrhea Family History Other Family history of cancer Family history of diabetes mellitus type II Family history of myocardial infarction Social History Smoking Status: Never smoker alcohol intake: never substance use type: denies use current occupational status: employed Travel in the last 8 weeks?: None household members: spouse housing: house current occupation: [employer] current occupational exposures/hazards: No caffeine: No Have you lived/traveled outside US in past 30 days?: No Contact w/someone who lives/traveled outside US past 30 days?: No Exposure to someone with infectious disease in past 14 days?: No Do you have a fever (greater than 100.4 F or 38 C)?: No Have you tested positive for COVID-19?: No Exposed to someone with COVID-19 in past 14 days?: No Do you have a sore throat?: No Do you have a cough?: No Do you have any weakness?: No Do you have any diarrhea?: No Are you experiencing any unusual bleeding?: No Do you have any muscle aches/pain?: No Do you have any abdominal pain?: No Are you experiencing loss of taste or smell?: No Other Medical History Have you received the Flu Vaccine for this season: Yes Have you received the Pneumonia Vaccine: Yes Review of Systems Review of Systems Review of systems (narrative): 14 point review of systems performed, pertinent positives and negatives as per HPI Constitutional Constitutional: Denies weakness ENT Ears, Nose, Mouth, and Throat: Denies vertigo *Neurologic Neurologic: Denies tremor(s), Denies vertigo and Denies weakness Meds Home Medications and Allergies Home Medications ?Medication ?Instructions ?Recorded ?Confirmed ?Type aspirin 81 mg tablet 81 mg PO HS 07/13/25 08/24/25 History lisinopril 10 1 tab PO HS 07/13/25 08/24/25 History mg-hydrochlorothiazide 12.5 mg tablet rosuvastatin 20 mg tablet 20 mg PO HS 07/13/25 08/24/25 History glucose 3.75 gram chewable tablet 3.75 g PO NEEDED PRN 07/18/25 08/24/25 History Hypoglycemia blood sugar diagnostic (Accu-Chek #10 ea 08/02/25 08/18/25 History Guide test strips) blood-glucose meter (Accu-Chek #1 ea 08/02/25 08/18/25 History Guide Me Glucose Meter) blood-glucose sensor (Dexcom G7 #1 ea 08/02/25 08/18/25 History Sensor device) lancets (Accu-Chek Softclix #100 ea 08/02/25 08/18/25 History Lancets) New Prescriptions to Start Prescriptions: Allergies Allergy/AdvReac Type Severity Reaction Status Date / Time No Known Allergies Allergy Verified 08/18/25 11:21 Exam Data for Last 24 hours Vital signs and Labs for Last 24 Hours: Temp Pulse Resp BP Pulse Ox O2 Del Method 97.6 F 65 16 145/78 H 97 Room Air 08/24/25 08:38 08/24/25 08:38 08/24/25 08:38 08/24/25 08:38 08/24/25 08:38 08/24/25 09:00 Laboratory Results - last 24 hr 08/24/25 08:22: POC Glucose 102 08/24/25 08:30: Sodium 139, Potassium 4.0, Chloride 104, Carbon Dioxide 26, Anion Gap 13.0, BUN 8 L, Creatinine 0.80, Estimated Creat Clear 170, Estimated GFR 105, Est GFR ( Amer) 126, Glucose 113 H, Calcium 9.3, Total Bilirubin 0.4, AST 37, ALT 47, Alkaline Phosphatase 85, Total Protein 7.4, Albumin 4.6, Globulin 2.8, Albumin/Globulin Ratio 1.6 08/24/25 09:06: POC Glucose 101 I & O for Last 24 hours: Intake & Output 08/21/25 08/22/25 08/23/25 08/24/25 23:59 23:59 23:59 23:59 Weight 103.221 kg Constitutional Constitutional: no acute distress, average body habitus and cooperative *Routine HEENT Exam Head: Present normocephalic Eye: Present EOMI ENT: Present mucous membranes moist *Routine Neck Exam Neck: Present supple *Routine Respiratory Exam Respiratory: Present CTA bilaterally, able to speak in complete sentences and symmetric chest movement; Absent wheezes or crackles *Routine Cardiovascular Exam Cardiovascular: Present RRR, Normal S1 and Normal S2; Absent murmur *Routine Abdominal Exam Abdominal: Present soft and normoactive bowel sounds; Absent tenderness or distended *Routine Rectal Exam Rectal:: deferred *Routine Genitalia Exam Genitalia:: deferred *Routine Extremities Exam Extremities: Present pulses intact and normal capillary refill; Absent edema *Routine Skin Exam Skin: Present intact and dry; Absent erythema or rash *Routine Neurological Exam Neurological: Present alert, oriented X3, vision grossly intact, hearing grossly intact and normal speech Routine Psychiatric Exam Psychiatric: Present normal affect Assessment and Plan *Assessment and plan (1) Hypoglycemia: Status: Acute Category: Medical Code(s): E16.2 - Hypoglycemia, unspecified (2) Hypertension: Status: Acute Qualifiers: Hypertension type: primary hypertension Qualified Code(s): I10 - Essential (primary) hypertension Category: Medical Code(s): I10 - Essential (primary) hypertension (3) Hyperlipidemia: Status: Acute Qualifiers: Hyperlipidemia type: other hyperlipidemia Qualified Code(s): E78.49 - Other hyperlipidemia Category: Medical Code(s): E78.5 - Hyperlipidemia, unspecified (4) Obesity (BMI 30.0-34.9): Status: Chronic Category: Medical Code(s): E66.811 - Obesity, class 1 Plan Mr. Paige is a 45-year-old male who was directly admitted to the hospital for a evaluation of his hypoglycemia. He has a primary medical history of hypertension, hyperlipidemia, and hypoglycemia. Mr. Paige is being followed by Dr. Morris for recurrent episodes of hypoglycemia. Previous fasting study was nondiagnostic as his serum level was 80 when insulin and C-peptide levels were obtained even though fingerstick was below threshold. He had already received glucagon by the time results came back, unable to continue test at that time. Has had further workup with cardiology as an outpatient for his hypoglycemia and bradycardia with no cardiac etiology identified. Patient states blood glucose has been doing well except for 1 episode last week. No signs of hypoglycemia, denies shortness of breath, abdominal pain, weakness, fever, chills, cough, congestion, nausea, vomiting, diarrhea. Hospital medicine agreed to admit the patient for monitoring and care. #Hypoglycemia ? We will follow the 72-hour supervised fast for hypoglycemia evaluation. Plans to assess blood glucose every 2 hours throughout the fast. Every 1 hour if blood glucose drops less than 70. ? Patient states he has been n.p.o. with the exception of water since dinner yesterday. Will continue to give the patient water. ? If patient does have episode of hypoglycemia (glucose less than 50) we will draw the following labs: Serum insulin, pro?insulin, C?peptide, beta?hydroxybutyrate, BMP, sulfonylurea and oral hypoglycemic agent screen. - Recommend holding glucagon until BMP returns confirming serum glucose less than 50. Can administer amp of dextrose if need be if patient becomes symptomatic from hypoglycemia. - Initial glucose greater than 110 on admission labs. Repeat CBC, CMP, magnesium ordered for the morning. #Hypertension: Resume lisinopril 10 mg/HCTZ 12.5 mg at bedtime. #Hyperlipidemia: Resume rosuvastatin 20 mg tablet at bedtime and aspirin 81 mg at bedtime. Full code N.p.o. (water okay) Ambulate as tolerated VTE?IPC's
[2025-08-24 11:06] LABS: POC Glucose,Bedside 104 gm/dL (70-110)
[2025-08-24 13:06] LABS: POC Glucose,Bedside 95 gm/dL (70-110)
[2025-08-24 15:03] LABS: POC Glucose,Bedside 88 gm/dL (70-110)
[2025-08-24 16:00] VITALS: BP 149/87; PULSE 64; RESP 16; TEMP 36.7; O2SAT 96
--- NOTE | 2025-08-24 17:06 | PC.NURSE ---
Pt is resting in bed at this time. Denies and discomfort or symptoms indicating hypoglycemia. Last fsbs at 1800 was 88. FSBS are being obtained Q2 hr at this time. Per MD orders: when fsbs is less than 55 and pt is not symptomatic, please hold IM Glucagon until Glucose serum results if possible. Then give after serum glucose results less then 55.
[2025-08-24 17:09] LABS: POC Glucose,Bedside 88 gm/dL (70-110)
[2025-08-24 19:17] LABS: POC Glucose,Bedside 84 gm/dL (70-110)
[2025-08-24 20:00] VITALS: BP 140/96; PULSE 65; RESP 16; TEMP 36.4; O2SAT 96
[2025-08-24] MEDS: ASPIRIN EC 81MG TABLET 81 MG PO (20:29)
[2025-08-24] MEDS: ATORVASTATIN 20MG TABLET 20 MG PO (20:29)
[2025-08-24 23:12] LABS: POC Glucose,Bedside 92 gm/dL (70-110)
[2025-08-25 01:17] LABS: POC Glucose,Bedside 92 gm/dL (70-110)
[2025-08-25 03:03] LABS: POC Glucose,Bedside 87 gm/dL (70-110)
[2025-08-25 04:00] VITALS: BMI 29.7
[2025-08-25 06:57] LABS: POC Glucose,Bedside 103 gm/dL (70-110)
[2025-08-25 07:15] LABS: Hematocrit 46.6 % (42.0-52.0); Hemoglobin 15.5 g/dL (14.1-18.0); Immature Granulocytes % 0.3 %; Mean Corpuscular HGB Conc 33.3 g/dL (31.8-35.4); Mean Corpuscular Hemoglobin 30.2 pg (27.0-31.2); Mean Corpuscular Volume 90.7 fl (80-94); Nucleated Red Blood Cells % 0 %; Platelet Count 251 K/mm3 (142-424); Red Blood Count 5.14 M/mm3 (4.60-6.20); Red Cell Distribution Width-SD 40.8 fL; White Blood Count 7.2 K/mm3 (4.8-10.8)
[2025-08-25 07:26] LABS: Alanine Aminotransferase 64 U/L (12-78); Albumin Level 4.4 g/dl (3.5-5.0); Albumin/Globulin Ratio 1.5 (1.1-1.8); Alkaline Phosphatase 80 U/L (38-126); Anion Gap 10.6 mEq/L (5-15); Aspartate Amino Transferase 50 U/L (17-59); Bilirubin,Total 0.7 mg/dl (0.2-1.3); Blood Urea Nitrogen 9 mg/dl (9-20); Calcium 9.7 mg/dl (8.4-10.2); Carbon Dioxide 30 mmol/L (22.0-30.0); Chloride 100 mmol/L (98-107); Creatinine Clearance Estimated 150 mL/min (50-200); Creatinine,Serum 0.90 mg/dl (0.66-1.25); Estimated Glomerular Filt Rate 91 ml/min (>60); GFR (African American) 110 ML/MIN (>60); Globulin 2.9 g/dL (1.3-3.2); Glucose 104 mg/dl (74-100); Magnesium 1.8 mg/dl (1.6-2.3); Potassium 3.6 mmoL/L (3.5-5.1); Sodium 137 mmol/L (136-145); Total Protein,Serum 7.3 g/dl (6.3-8.2)
[2025-08-25 07:53] VITALS: BP 135/69; PULSE 52; RESP 16; TEMP 36.6; O2SAT 96
--- NOTE | 2025-08-25 08:39 | P.PN_ITS ---
Subjective *Date: 08/25/25 *Time: 16:57 Interval history: No overnight events. Patient has had no hypoglycemic episodes so far. Exam Data for Last 24 hours Vital signs and Labs for Last 24 Hours: Temp Pulse Resp BP Pulse Ox O2 Del Method 98 F 52 L 16 135/69 96 Room Air 08/25/25 07:53 08/25/25 07:53 08/25/25 07:53 08/25/25 07:53 08/25/25 07:53 08/25/25 08:15 Laboratory Results - last 24 hr 08/24/25 08:22: POC Glucose 102 08/24/25 08:30: Sodium 139, Potassium 4.0, Chloride 104, Carbon Dioxide 26, Anion Gap 13.0, BUN 8 L, Creatinine 0.80, Estimated Creat Clear 170, Estimated GFR 105, Est GFR ( Amer) 126, Glucose 113 H, Calcium 9.3, Total Bilirubin 0.4, AST 37, ALT 47, Alkaline Phosphatase 85, Total Protein 7.4, Albumin 4.6, Globulin 2.8, Albumin/Globulin Ratio 1.6 08/24/25 09:06: POC Glucose 101 08/24/25 10:59: POC Glucose 104 08/24/25 12:57: POC Glucose 95 08/24/25 14:51: POC Glucose 88 08/24/25 17:01: POC Glucose 88 08/24/25 19:09: POC Glucose 84 08/24/25 23:04: POC Glucose 92 08/25/25 00:56: POC Glucose 92 08/25/25 02:55: POC Glucose 87 08/25/25 06:03: WBC 7.2, RBC 5.14, Hgb 15.5, Hct 46.6, MCV 90.7, MCH 30.2, MCHC 33.3, RDW 12.3, Plt Count 251, MPV 11.3 H, Neut % (Auto) 52.8, Lymph % (Auto) 32.3, [place] % (Auto) 7.5, Eos % (Auto) 6.1, Baso % (Auto) 1.0, Neut # (Auto) 3.8, Lymph # (Auto) 2.3, [place] # (Auto) 0.5, Eos # (Auto) 0.4, Baso # (Auto) 0.1, Sodium 137, Potassium 3.6, Chloride 100, Carbon Dioxide 30, Anion Gap 10.6, BUN 9, Creatinine 0.90, Estimated Creat Clear 150, Estimated GFR 91, Est GFR ( Amer) 110, Glucose 104 H, Calcium 9.7, Magnesium 1.8, Total Bilirubin 0.7, AST 50 D, ALT 64 D, Alkaline Phosphatase 80, Total Protein 7.3, Albumin 4.4, Globulin 2.9, Albumin/Globulin Ratio 1.5 08/25/25 06:49: POC Glucose 103 I & O for Last 24 hours: Intake & Output 08/22/25 08/23/25 08/24/25 08/25/25 23:59 23:59 23:59 23:59 Intake Total 1680 / 1680 Output Total 0 / 0 200 / 200 Balance 1680 / 1680 -200 / -200 Weight 227 lb 9 oz 225 lb Constitutional Constitutional: no acute distress *Routine HEENT Exam Head: Present normocephalic Eye: Present EOMI and PERRL ENT: Present mucous membranes moist *Routine Neck Exam Neck: Present supple; Absent lymphadenopathy *Routine Respiratory Exam Respiratory: Present CTA bilaterally *Routine Cardiovascular Exam Cardiovascular: Present RRR *Routine Abdominal Exam Abdominal: Present soft and normoactive bowel sounds; Absent tenderness *Routine Extremities Exam Extremities: Absent cyanosis, clubbing or edema *Routine Skin Exam Skin: Present warm; Absent rash *Routine Neurological Exam Neurological: Present alert and oriented X3 Assessment and Plan *Assessment and plan (1) Hypoglycemia: Status: Acute Category: Medical Code(s): E16.2 - Hypoglycemia, unspecified Plan: - No hypoglycemic episodes so far. Continue with fast. - Check insulin, pro-insulin, c-peptide, BHB, sulfonylurea drug screen and BMP - Collect above blood samples when BG<55. - Check BG when patient has symptoms, every 2hrs and hrly once BG<70 - IM glucagon 1mg should be admistered once the samples are collected. - Check FSBG 10, min, 20 min and 30 mins post glucagon - Patient should be provided with meals after the hypoglycemic event. - Patient can be discharged once the following endpoints are met: 1. Patient has symptomatic hypoglycemic event with BG<55 and blood samples are collected. 2. 72hrs have elapsed 3. Patient has hypoglycemic event without symptoms and with a BG<45 4. Lower BG target of <60, if patient does not have any significant hypoglycemic episode by 72hrs. Discussed plan with nurse at bedside. Plan follow up outpatient in 2 weeks after the discharge. Endocrinology will continue to follow. Plan - Patient did not meet whipples triad for hypoglycemia during the episode yester day. This makes hypoglycemia unlikely. - Recommended patient to maintain symptom diary at home to evaluate hypoglycemia again. We also discussed options to repeat 72hr fast or going to ER when he has another episode to get plasma blood glucose. - Noted that his HR at 54 yesterday when he had symptoms. - Given his history of syncope and bradycardia in the past, recommend cardiology evaluation. - Patient ok for discharge from endocrine standpoint. Plan follow up outpatient in 2 weeks to discuss results.
[2025-08-25 09:09] LABS: POC Glucose,Bedside 103 gm/dL (70-110)
--- NOTE | 2025-08-25 10:03 | P.PN_ITS ---
Subjective *Date: 08/25/25 *Time: 10:03 Interval history: No hypoglycemic episodes below 80. Denies confusion, chest pain, shortness of breath, nausea or vomiting. Remains NPO. Otherwise in normal state of health Medical Exam Vital signs and Labs for Last 24 Hours: Vital Signs Temp Pulse Resp BP Pulse Ox O2 Del Method 08/25/25 08:15 Room Air 08/25/25 08:00 Room Air 08/25/25 07:53 98 F 52 L 16 135/69 96 Room Air 08/25/25 06:34 Room Air 08/25/25 05:00 Room Air 08/25/25 02:58 Room Air 08/25/25 01:00 Room Air 08/24/25 23:00 Room Air 08/24/25 20:41 Room Air 08/24/25 20:00 Room Air 08/24/25 20:00 97.6 F 65 16 140/96 H 96 Room Air 08/24/25 19:00 Room Air 08/24/25 17:00 Room Air 08/24/25 16:00 98.1 F 64 16 149/87 H 96 Room Air 08/24/25 14:56 Room Air 08/24/25 12:59 Room Air 08/24/25 11:00 Room Air Intake and Output 08/24/25 08/25/25 08/25/25 23:59 07:59 15:59 Intake Total 1680 / 1680 Output Total 0 / 0 200 / 200 Balance 1680 / 1680 -200 / -200 Intake: Intake, Oral Amount 1680 / 1680 Output: Output, Urine Amount 0 / 0 200 / 200 Other: Number of Unmeasured Voids 1 0 Weight 102.058 kg Patient Weight 08/25/25 23:59 Weight 102.058 kg Laboratory Results - last 24 hr 08/24/25 10:59: POC Glucose 104 08/24/25 12:57: POC Glucose 95 08/24/25 14:51: POC Glucose 88 08/24/25 17:01: POC Glucose 88 08/24/25 19:09: POC Glucose 84 08/24/25 23:04: POC Glucose 92 08/25/25 00:56: POC Glucose 92 08/25/25 02:55: POC Glucose 87 08/25/25 06:03: WBC 7.2, RBC 5.14, Hgb 15.5, Hct 46.6, MCV 90.7, MCH 30.2, MCHC 33.3, RDW 12.3, Plt Count 251, MPV 11.3 H, Neut % (Auto) 52.8, Lymph % (Auto) 32.3, [place] % (Auto) 7.5, Eos % (Auto) 6.1, Baso % (Auto) 1.0, Neut # (Auto) 3.8, Lymph # (Auto) 2.3, [place] # (Auto) 0.5, Eos # (Auto) 0.4, Baso # (Auto) 0.1, Sodium 137, Potassium 3.6, Chloride 100, Carbon Dioxide 30, Anion Gap 10.6, BUN 9, Creatinine 0.90, Estimated Creat Clear 150, Estimated GFR 91, Est GFR (Afri can Amer) 110, Glucose 104 H, Calcium 9.7, Magnesium 1.8, Total Bilirubin 0.7, AST 50 D, ALT 64 D, Alkaline Phosphatase 80, Total Protein 7.3, Albumin 4.4, Globulin 2.9, Albumin/Globulin Ratio 1.5 08/25/25 06:49: POC Glucose 103 08/25/25 09:02: POC Glucose 103 I & O for Labs for Last 24 Hours: Intake & Output 08/22/25 08/23/25 08/24/25 08/25/25 23:59 23:59 23:59 23:59 Intake Total 1680 / 1680 Output Total 0 / 0 200 / 200 Balance 1680 / 1680 -200 / -200 Weight 103.221 kg 102.058 kg Constitutional: Present no acute distress and cooperative Respiratory: Present normal respiratory effort; Absent respiratory distress, stridor, wheezes or crackles Cardiac: Present Reg Rate and Rhythm GI: Present soft and normal bowel sounds; Absent distention or tenderness Extremities: Present normal inspection and full ROM Skin: Present intact; Absent erythema Neuro: Present Grossly Intact, alert, awake, oriented x 3 and moves all extremities Assessment and Plan *Assessment and plan (1) Hypoglycemia: Status: Acute Category: Medical Code(s): E16.2 - Hypoglycemia, unspecified (2) Hypertension: Status: Acute Qualifiers: Hypertension type: primary hypertension Qualified Code(s): I10 - Essential (primary) hypertension Category: Medical Code(s): I10 - Essential (primary) hypertension (3) Hyperlipidemia: Status: Acute Qualifiers: Hyperlipidemia type: other hyperlipidemia Qualified Code(s): E78.49 - Other hyperlipidemia Category: Medical Code(s): E78.5 - Hyperlipidemia, unspecified (4) Obesity (BMI 30.0-34.9): Status: Chronic Category: Medical Code(s): E66.811 - Obesity, class 1 Plan Mr. Paige is a 45-year-old male who was directly admitted to the hospital for a evaluation of his hypoglycemia. He has a primary medical history of hypertension, hyperlipidemia, and hypoglycemia. Mr. Paige is being followed by Dr. Morris for recurrent episodes of hypoglycemia. Previous fasting study was nondiagnostic as his serum level was 80 when insulin and C-peptide levels were obtained even though fingerstick was below threshold. He had already received glucagon by the time results came back, unable to continue test at that time. Has had further workup with cardiology as an outpatient for his hypoglycemia and bradycardia with no cardiac etiology identified. Patient states blood glucose has been doing well except for 1 episode last week. No signs of hypoglycemia, denies shortness of breath, abdominal pain, weakness, fever, chills, cough, congestion, nausea, vomiting, diarrhea. Hospital medicine agreed to admit the patient for monitoring and care. #Hypoglycemia ? We will follow the 72-hour supervised fast for hypoglycemia evaluation. Plans to assess blood glucose every 2 hours throughout the fast. Every 1 hour if blood glucose drops less than 70. ? Patient states he has been n.p.o. with the exception of water since dinner yesterday. Will continue to give the patient water. ? If patient does have episode of hypoglycemia (glucose less than 55) we will draw the following labs: Serum insulin, pro?insulin, C?peptide, beta?hydroxybutyrate, BMP, sulfonylurea and oral hypoglycemic agent screen. - Recommend holding glucagon until BMP returns confirming serum glucose less than 55. Can administer amp of dextrose if need be if patient becomes symptomatic from hypoglycemia. - Morning glucose 104 on BMP. Repeat CBC, CMP, magnesium ordered for the morning. #Hypertension: Resume lisinopril 10 mg/HCTZ 12.5 mg at bedtime. #Hyperlipidemia: Resume rosuvastatin 20 mg tablet at bedtime and aspirin 81 mg at bedtime. Full code N.p.o. (water okay) Ambulate as tolerated VTE?IPC's
[2025-08-25 11:30] LABS: POC Glucose,Bedside 94 gm/dL (70-110)
[2025-08-25 13:14] LABS: POC Glucose,Bedside 78 gm/dL (70-110)
[2025-08-25 15:07] LABS: POC Glucose,Bedside 78 gm/dL (70-110)
[2025-08-25 16:00] VITALS: BP 148/84; PULSE 60; RESP 16; TEMP 36.7; O2SAT 93
--- NOTE | 2025-08-25 17:23 | PC.NURSE ---
PT IS RESTING IN BED. NO COMPLAINTS OF DISCOMFORT. ALERT AND ORIENTED X4. PT AMBULATED IN THE [place] THIS SHIFT. ALL FSBS HAVE REMAINED STABLE THIS SHIFT. LUNG SOUNDS CLEAR. ABDOMEN SOFT/NON TENDER WITH ACTIVE BOWEL SOUNDS. VSS. WILL CONTINUE TO MONITOR.
[2025-08-25 17:26] LABS: POC Glucose,Bedside 81 gm/dL (70-110)
[2025-08-25] MEDS: ASPIRIN EC 81MG TABLET 81 MG PO (21:12)
[2025-08-25] MEDS: ATORVASTATIN 20MG TABLET 20 MG PO (21:12)
[2025-08-25 21:20] LABS: POC Glucose,Bedside 79 gm/dL (70-110)
[2025-08-25 23:24] LABS: POC Glucose,Bedside 78 gm/dL (70-110)
[2025-08-26] VITALS: BP 151/91; PULSE 92; RESP 20; TEMP 36.8; O2SAT 94
[2025-08-26 03:21] LABS: POC Glucose,Bedside 86 gm/dL (70-110)
[2025-08-26 03:21] LABS: POC Glucose,Bedside 78 gm/dL (70-110)
[2025-08-26 04:00] VITALS: BMI 29.7
[2025-08-26 05:26] LABS: POC Glucose,Bedside 81 gm/dL (70-110)
--- NOTE | 2025-08-26 05:31 | PC.NURSE ---
patient is alert and oriented x4, ambulates independently, no complaints of pain or discomfort this shift, patient FSBS Q2H remain between 78-86. call button in reach.
[2025-08-26 06:32] LABS: Anion Gap 13.6 mEq/L (5-15); Blood Urea Nitrogen 12 mg/dl (9-20); Calcium 9.8 mg/dl (8.4-10.2); Carbon Dioxide 27 mmol/L (22.0-30.0); Chloride 101 mmol/L (98-107); Creatinine Clearance Estimated 150 mL/min (50-200); Creatinine,Serum 0.90 mg/dl (0.66-1.25); Estimated Glomerular Filt Rate 91 ml/min (>60); GFR (African American) 110 ML/MIN (>60); Glucose 76 mg/dl (74-100); Potassium 3.6 mmoL/L (3.5-5.1); Sodium 138 mmol/L (136-145)
[2025-08-26 06:47] VITALS: BP 148/92; PULSE 56; RESP 19; TEMP 36.4; O2SAT 96
[2025-08-26 06:48] LABS: Glucose,Fasting 69 mg/dl (74-100)
[2025-08-26 07:07] LABS: POC Glucose,Bedside 78 gm/dL (70-110)
[2025-08-26 08:20] VITALS: BP 130/76; PULSE 64; RESP 14; TEMP 36.8; O2SAT 97
--- NOTE | 2025-08-26 08:22 | EXP.EVENT.NO ---
Patient is close to 60hr of fast and has not had any hypoglycemic episodes so far. If no further episodes during the day he can be discharged in the evening after breaking the fast. - Ok to collect labs if BG < 60 -
[2025-08-26 09:04] LABS: POC Glucose,Bedside 80 gm/dL (70-110)
--- NOTE | 2025-08-26 09:44 | EXP.DC.SUM ---
General Admission date:: 08/24/25 Discharge date: 08/26/25 HPI HPI HPI: Mr. Paige is a 45yr old, male with a PMH of HTN and HLD currently admitted for a 72 hr supervised fast for hypoglycemia. This is the 2nd time evaluation as he did not meet the test end points at last visit. No documented hypoglycemic episodes with low BG so far, low cortisol was followed by ACTH stim with robust response. He reports starting fast at midnight and has no complaints so far. Shortness of breath, chest pain, nausea or vomiting. Alert and oriented x 4. Does report having had an episode about a week ago where his glucose meter at home read low which means it was below 40. Has been using glucose tabs at home to prevent hypoglycemia. Otherwise feeling well. No acute illness. Exam Data for Last 24 hours Vital signs and Labs for Last 24 Hours: Temp Pulse Resp BP Pulse Ox O2 Del Method 98.3 F 64 14 130/76 97 Room Air 08/26/25 08:20 08/26/25 08:20 08/26/25 08:20 08/26/25 08:20 08/26/25 08:20 08/26/25 09:00 Laboratory Results - last 24 hr 08/24/25 05:24: Fasting Glucose 69 L 08/25/25 11:23: POC Glucose 94 08/25/25 13:01: POC Glucose 78 08/25/25 15:00: POC Glucose 78 08/25/25 17:18: POC Glucose 81 08/25/25 21:08: POC Glucose 79 08/25/25 23:17: POC Glucose 78 08/26/25 01:04: POC Glucose 78 08/26/25 03:14: POC Glucose 86 08/26/25 05:08: POC Glucose 81 08/26/25 05:24: Sodium 138, Potassium 3.6, Chloride 101, Carbon Dioxide 27, Anion Gap 13.6, BUN 12 D, Creatinine 0.90, Estimated Creat Clear 150, Estimated GFR 91, Est GFR ( Amer) 110, Glucose 76 D, Calcium 9.8 08/26/25 07:00: POC Glucose 78 08/26/25 08:56: POC Glucose 80 I & O for Last 24 hours: Intake & Output 08/23/25 08/24/25 08/25/25 08/26/25 23:59 23:59 23:59 23:59 Intake Total 1680 / 1680 480 / 480 Output Total 0 / 0 400 / 400 300 / 300 Balance 1680 / 1680 -400 / 80 180 / 180 Weight 103.221 kg 102.058 kg 102 kg Constitutional Constitutional: no acute distress, average body habitus and cooperative *Routine HEENT Exam Head: Present normocephalic Eye: Present EOMI and PERRL ENT: Present mucous membranes moist *Routine Neck Exam Neck: Present supple; Absent lymphadenopathy *Routine Respiratory Exam Respiratory: Present CTA bilaterally and symmetric chest movement; Absent wheezes or crackles *Routine Cardiovascular Exam Cardiovascular: Present RRR; Absent murmur *Routine Abdominal Exam Abdominal: Present soft and normoactive bowel sounds; Absent tenderness *Routine Rectal Exam Patient deferred: visual exam *Routine Exam Patient deferred: penile exam *Routine Extremities Exam Extremities: Present full ROM and pulses intact; Absent cyanosis, clubbing or edema *Routine Skin Exam Skin: Present intact, dry and warm; Absent erythema or rash *Routine Neurological Exam Neurological: Present alert, oriented X3, vision grossly intact, hearing grossly intact and normal speech Routine Psychiatric Exam Psychiatric: Present normal affect Results Data Completed and Pending Labs on day of discharge: Labs from last 24 hours 08/26/25 08/26/25 08/26/25 08:56 07:00 05:24 Sodium 138 Potassium 3.6 Chloride 101 Carbon Dioxide 27 Anion Gap 13.6 BUN 12 D Creatinine 0.90 Estimated Creat Clear 150 Estimated GFR 91 Est GFR ( Amer) 110 Glucose 76 D POC Glucose 80 78 Fasting Glucose Calcium 9.8 08/26/25 08/26/25 08/26/25 05:08 03:14 01:04 Sodium Potassium Chloride Carbon Dioxide Anion Gap BUN Creatinine Estimated Creat Clear Estimated GFR Est GFR ( Amer) Glucose POC Glucose 81 86 78 Fasting Glucose Calcium 08/25/25 08/25/25 08/25/25 23:17 21:08 17:18 Sodium Potassium Chloride Carbon Dioxide Anion Gap BUN Creatinine Estimated Creat Clear Estimated GFR Est GFR ( Amer) Glucose POC Glucose 78 79 81 Fasting Glucose Calcium 08/25/25 08/25/25 08/25/25 15:00 13:01 11:23 Sodium Potassium Chloride Carbon Dioxide Anion Gap BUN Creatinine Estimated Creat Clear Estimated GFR Est GFR ( Amer) Glucose POC Glucose 78 78 94 Fasting Glucose Calcium 08/24/25 05:24 Sodium Potassium Chloride Carbon Dioxide Anion Gap BUN Creatinine Estimated Creat Clear Estimated GFR Est GFR ( Amer) Glucose POC Glucose Fasting Glucose 69 L Calcium DS: Diagnosis Discharge Diagnosis (1) Hypoglycemia: Status: Acute Code(s): E16.2 - Hypoglycemia, unspecified Meds Home Medications and Allergies Home Medications ?Medication ?Instructions ?Recorded ?Confirmed ?Type aspirin 81 mg tablet 81 mg PO HS 07/13/25 08/24/25 History lisinopril 10 1 tab PO HS 07/13/25 08/24/25 History mg-hydrochlorothiazide 12.5 mg tablet rosuvastatin 20 mg tablet 20 mg PO HS 07/13/25 08/24/25 History glucose 3.75 gram chewable tablet 3.75 g PO NEEDED PRN 07/18/25 08/24/25 History Hypoglycemia blood sugar diagnostic (Accu-Chek #10 ea 08/02/25 08/25/25 History Guide test strips) blood-glucose meter (Accu-Chek #1 ea 08/02/25 08/25/25 History Guide Me Glucose Meter) blood-glucose sensor (Dexcom G7 #1 ea 08/02/25 08/25/25 History Sensor device) lancets (Accu-Chek Softclix #100 ea 08/02/25 08/25/25 History Lancets) New Prescriptions to Start Prescriptions: Allergies Allergy/AdvReac Type Severity Reaction Status Date / Time No Known Allergies Allergy Verified 08/18/25 11:21 Discharge Plan Disposition Patient Disposition: Home, Self-Care Condition: Good Follow up Plan Follow up with: Kari Pleitez [Primary Care Provider, Medical] - Enter time for follow up Shara Morris MD [Staff Physician, Endocrinology] - Enter time for follow up Prescriptions/Medication Reconciliation: Continued (DME) blood-glucose meter [Accu-Chek Guide Me Glucose Mtr] Misc See Rx Instructions .ROUTE .MEDSUPPLY Qty: 1 Patient Comments: USE as directed TWICE DAILY Rx Instructions: As directed (DME) Accu-Chek Guide test strips Strip See Rx Instructions .ROUTE .MEDSUPPLY Qty: 10 Patient Comments: Test Blood Glucose TWICE DAILY Rx Instructions: As directed (DME) lancets [Accu-Chek Softclix Lancets] Misc See Rx Instructions .ROUTE .MEDSUPPLY Qty: 100 Patient Comments: Test blood Glucose TWICE DAILY Rx Instructions: As directed (DME) Dexcom G7 Sensor Device See Rx Instructions .ROUTE .MEDSUPPLY Qty: 1 Patient Comments: Use as directed every 10 days. Rx Instructions: As directed rosuvastatin 20 mg tablet 20 mg PO HS Patient Comments: TAKE 1 TABLET BY MOUTH EVERY DAY aspirin 81 mg tablet 81 mg PO HS lisinopril-hydrochlorothiazide 10-12.5 mg tablet 1 tab PO HS Patient Comments: TAKE 1 TABLET BY MOUTH EVERY DAY FOR BLOOD PRESSURE glucose 3.75 gram tablet,chewable 3.75 g PO NEEDED PRN (Reason: Hypoglycemia) Patient Comments: TAKE 1 TABLET BY MOUTH NEEDED FOR hypoglycemia Problem Reconciliation Problems Reviewed?: Yes Patient Discharge Instructions ACTIVITY: Continue current activity DIET: continue same diet Patient Instructions: Hypoglycemia Print Language: Swiss Providers Primary Care Provider: Kari Pleitez Admit Provider: Darnell Scales Attending Provider: Darnell Scales
[2025-08-26 11:32] LABS: POC Glucose,Bedside 77 gm/dL (70-110)
[2025-08-26 13:08] LABS: POC Glucose,Bedside 71 gm/dL (70-110)
[2025-08-26 15:02] LABS: POC Glucose,Bedside 71 gm/dL (70-110)
[2025-08-26 16:00] VITALS: BP 136/79; PULSE 69; RESP 14; TEMP 36.6; O2SAT 94
[2025-08-26 16:12] LABS: POC Glucose,Bedside 64 gm/dL (70-110)
[2025-08-26 17:08] LABS: POC Glucose,Bedside 64 gm/dL (70-110)
[2025-08-26 18:07] LABS: POC Glucose,Bedside 74 gm/dL (70-110)
[2025-08-27 10:23] LABS: Insulin Level Total 9.6 uIU/mL (2.6-24.9)
== END 2025-08-26 18:41 | disposition home or self-care (01) | DRG 641 ==
PROVIDERS: Admitting Provider Internal Medicine Adolescent Medicine; PCP Nurse Practitioner Family; Visit Provider Internal Medicine Adolescent Medicine
DX: E16.2 Hypoglycemia, unspecified (principal); I10 Essential (primary) hypertension; E78.5 Hyperlipidemia, unspecified; E66.811 Obesity, class 1; R00.1 Bradycardia, unspecified; Z83.3 Family history of diabetes mellitus; Z79.899 Other long term (current) drug therapy; Z79.82 Long term (current) use of aspirin; Z68.30 Body mass index [BMI] 30.0-30.9, adult
CPT/HCPCS: 36415; 80048; 80053; 82010; 82947; 82962; 83525; 83735; 84681; 85025